=== PATIENT | male | born 1960 | race Caucasian/White ===

== ENCOUNTER 2017-03-20 06:33 | Inpatient (IN) | payer BC ==
[2017-03-20] VITALS (18 sets, daily range): BP systolic 91–175; BP diastolic 51–81; PULSE 66–94; RESP 16–19; TEMP 98.3–99.4; O2SAT 97–100
[~2017-03-20] VITALS: Ht 182.9 cm; Wt 109.5 kg
[2017-03-20] MEDS ORDERED: PROPOFOL 1000 MG/100 ML INJ 100 ML ONE (06:37)
[2017-03-20] MEDS ORDERED: SODIUM CHLORIDE 0.9% FLUSH 5 ML FLUSH IV FLUSH PRN (06:45)
--- NOTE | 2017-03-20 06:47 | PD ---
HPI Chief Complaint: Altered Mental Status Time Seen by Provider: 06:38 Travel History International Travel<30 days: No Contact w/Intl Traveler<30days: No Traveled to known affect area: No History of Present Illness HPI 57-year-old male brought in by ambulance from home with altered mental status. According to EMS, the patient has history of end-stage liver disease. This morning he was talking to his when he became unresponsive and then fell to the ground. When EMS arrived she was face down on the ground with agonal respirations and unresponsive to verbal or painful stimuli. They attempted to intubate him using 20 monos of etomidate and 4 mg of Ativan, however was unsuccessful. Upon arrival to the emergency department, the patient's breathing was being assisted by BVM. Respirations were agonal. Pupils are equal, round, 4 mm, reactive to light. Patient was unresponsive to verbal and painful stimuli. He had notable superficial lacerations/abrasion to his right forehead. Patient was intubated for depressed mental status and airway protection. According to EMS who spoke with the patient's prior to transporting to the emergency department, the patient is a full code. PFSH Past Medical History Medical History: Unable to Obtain Diminished Hearing: No (UTO) Tetanus Vaccination: Unknown Influenza Vaccination: No (UTO) Past Surgical History Surgical History: Unable to Obtain Social History Alcohol Use: No (UTO) Tobacco Use: No (UTO) Substance Use: No (UTO) Allergies-Medications (Allergen,Severity, Reaction): Coded Allergies: UNOBTAINABLE (Unverified , 03/20/17) Reported Meds & Prescriptions Reported Meds & Active Scripts Active Active Prescriptions or Reported Medications Unobtainable Review of Systems ROS Limitations: Clinical Condition, Altered Mental Status, Unresponsive Physical Exam Narrative GENERAL: Well-developed, well-nourished, obtunded, agonal respirations. SKIN: Focused skin assessment warm/dry. Superficial abrasion/laceration to right forehead. No petechiae. No rash. HEAD: Skin exam as above. Normocephalic. EYES: Pupils equal, round, 4 mm, reactive to light. No scleral icterus. No injection or drainage. ENT: No nasal bleeding or discharge. Mucous membranes pink and moist. Respirations assisted with BVM. NECK: Trachea midline. No JVD. Cervical collar in place. CARDIOVASCULAR: Regular rate and rhythm. RESPIRATORY: Agonal respirations. Respirations assisted with BVM. GASTROINTESTINAL: Abdomen soft, nondistended. MUSCULOSKELETAL: No obvious deformities. No clubbing. No cyanosis. No edema. NEUROLOGICAL: Obtunded. Unresponsive to painful or verbal stimuli. Data Data Last Documented VS Vital Signs Date Time Temp Pulse Resp B/P Pulse Ox O2 Delivery O2 Flow Rate FiO2 03/20/17 06:45 100 03/20/17 06:42 94 16 165/67 100 15 Orders Propofol 1000 Mg/100 Ml Inj (Diprivan 10 (03/20/17 06:37) Electrocardiogram (03/20/17 06:38) Ammonia (03/20/17 06:38) Complete Blood Count With Diff (03/20/17 06:38) Comprehensive Metabolic Panel (03/20/17 06:38) Creatine Kinase (Cpk) (03/20/17 06:38) Prothrombin Time / Inr (Pt) (03/20/17 06:38) Act Partial Throm Time (Ptt) (03/20/17 06:38) Troponin I (03/20/17 06:38) Thyroid Stimulating Hormone (03/20/17 06:38) Urinalysis - C+S If Indicated (03/20/17 06:38) Lactic Acid Sepsis Protocol (03/20/17 06:38) Blood Culture (03/20/17 06:38) Chest, Single Ap (03/20/17 06:38) Ct Brain W/O Iv Contrast(Rout) (03/20/17 06:38) Blood Glucose (03/20/17 06:38) Ecg Monitoring (03/20/17 06:38) Iv Access Insert/Monitor (03/20/17 06:38) Oximetry (03/20/17 06:38) Sodium Chloride 0.9% Flush (Ns Flush) (03/20/17 06:45) Drug Screen, Random Urine (03/20/17 06:38) Alcohol (Ethanol) (03/20/17 06:38) Tylenol (Acetaminophen) (03/20/17 06:38) Salicylates (Aspirin) (03/20/17 06:38) Ct Facial Bones W/O Iv Cont (03/20/17 ) Ct Cerv Spine W/O Contrast (7/4/17 ) Propofol 1000 Mg/100 Ml Inj (Diprivan 10 (03/20/17 07:00) Urinary Catheter Insert/Apply (03/20/17 06:52) [facility] Medical Decision Making Medical Screen Exam Complete: Yes Emergency Medical Condition: Yes Interpretation(s) EKG: Sinus, rate 95, leftward axis, normal intervals, no acute ischemic abnormality. Differential Diagnosis ICH, CVA, dysrhythmia, metabolic abnormality/encephalopathy, intoxication Narrative Course Stroke alert was not called by me for several reasons. For one the patient has a reported history of end-stage liver disease. With this he could have a coagulopathy, making him a poor TPA candidate as this will likely increase his chance of bleeding. Patient also sustained head trauma with a fall to the ground after becoming unresponsive. He has obvious signs of trauma on exam with a right forehead abrasion. Head trauma is a contraindication to TPA. Also the patient's symptoms are nonfocal, yet global in nature. He is obtunded. According to EMS the patient's will be presenting to the emergency department. At 7:05 AM at the end of my shift the patient's is still not here. At this time the patient was signed out to oncoming provider Dr. Allen who will follow up with labs, imaging results, and will admit the patient to the [facility]. Procedures Procedure Narrative Emergency intubation: The patient was put in optimal position for the procedure. Rapid sequence intubation was initiated by me using 20 milligrams of etomidate IV and 50 milligrams of rocuronium IV. The patient was intubated with a 8.0 [place] cuffed endotracheal tube. Tube placement was confirmed by visualization of the tube and balloon passing through the cords, capnometry and subsequent chest x-ray. Breath sounds were equal and well aerated bilaterally postintubation. No breath sounds over stomach. Patient tolerated procedure well. Scripts Unable to Obtain Active Prescriptions or Reported Meds Ben Palmer MD Mar 20, 2017 06:47
[2017-03-20] MEDS: PROPOFOL 1000 MG/100 ML INJ 100 ML IV SCH ×2 (06:49→19:37)
[2017-03-20 07:05] LABS: AUTOMATED NEUTROPHIL # 5.7 TH/MM3 (1.8-7.7); BASOPHIL # 0.1 TH/MM3 (0-0.2); BASOPHIL % 1.4 % (0.0-2.0); EOSINOPHIL # 0.4 TH/MM3 (0-0.4); EOSINOPHIL % 5.1 % (0.0-4.0); HEMATOCRIT 28.7 % (39.0-51.0); LYMPH % 11.3 % (9.0-44.0); LYMPHOCYTE # 0.8 TH/MM3 (1.0-4.8); MEAN CELL VOLUME 90.1 FL (80.0-100.0); MEAN CORPUSCULAR HGB CONC 32.2 % (32.0-36.0); MONO % 6.2 % (0.0-8.0); PLATELET COUNT 63 TH/MM3 (150-450); RED BLOOD COUNT 3.18 MIL/MM3 (4.50-5.90); RED CELL DISTRIBUTION WIDTH 16.6 % (11.6-17.2); WHITE BLOOD COUNT 7.4 TH/MM3 (4.0-11.0)
[2017-03-20 07:10] LABS: HEMO FLAGS AUTO DIFF
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
[2017-03-20 07:17] LABS: APTT (PATIENT) 32.4 SEC (24.3-30.1); INTERNATIONAL NORMALIZED RATIO 1.4 RATIO; PROTHROMBIN TIME - PATIENT 16.2 SEC (9.8-11.6)
--- NOTE | 2017-03-20 07:20 | RADRPT ---
EXAM DATE/TIME: 03/20/2017 07:05 [facility] COMPARISON: No previous studies available for comparison. INDICATIONS : Syncope, fall RADIATION DOSE: 56.35 CTDIvol (mGy) MEDICAL HISTORY : Non-responsive. SURGICAL HISTORY : Non-responsive. ENCOUNTER: Initial ACUITY: 1 day PAIN SCALE: Non-responsive LOCATION: cranial TECHNIQUE: Multiple contiguous axial images were obtained of the head. Using automated exposure control and adj ustment of the mA and/or kV according to patient size, radiation dose was kept as low as reasonably a chievable to obtain optimal diagnostic quality images. DICOM format image data is available electro nically for review and comparison. FINDINGS: There is circumferential mucosal thickening in right maxillary sinus. No fractures are seen. The ther e is encephalomalacia in the right inferior frontal lobe from remote infarct with mild ex acute dilat ation of the right frontal horn. There are no signs of acute infarct, intracranial hemorrhage, or mas s. CONCLUSION: 1. Right maxillary sinus mucosal thickening. 2. Remote right frontal infarct. Yehuda Oro MD on March 20, 2017 at 7:17 Board Certified Radiologist. This report was verified electronically.
[2017-03-20] MEDS ORDERED: SODIUM PHOSPHATE INJ 30 MMOL in SODIUM CHLOR 0.9% 250 ML INJ 240 ML IV PRN (07:30)
[2017-03-20] MEDS ORDERED: POTASSIUM CHLOR 20 MEQ PREMIX 100 ML IV PRN ×2 (07:30)
[2017-03-20] MEDS ORDERED: hydrALAZINE HCL 20 MG/ML VIAL IV PUSH PRN (07:30)
[2017-03-20] MEDS ORDERED: PROPOFOL 1000 MG/100 ML INJ 100 ML IV SCH (07:30)
[2017-03-20] MEDS ORDERED: RESP: ALBUTEROL 2.5 MG/IPRATROPIUM 0.5 MG NEB (PRN) INH (07:30)
[2017-03-20] MEDS ORDERED: POTASSIUM PHOSPHATE MONOBASIC 500 MG TAB PO/TUBE PRN (07:30)
[2017-03-20] MEDS ORDERED: DEXTROSE 50% IN WATER 50 ML VIAL(D50) IV PUSH PRN (07:30)
[2017-03-20] MEDS ORDERED: MAGNESIUM OXIDE 400 MG TAB PO PRN (07:30)
[2017-03-20] MEDS ORDERED: LABETALOL HCL 100 MG/20 ML VIAL IV PUSH PRN (07:30)
[2017-03-20] MEDS ORDERED: MISCELLANEOUS NURSING INFORMATION XX SCH (07:30)
[2017-03-20] MEDS ORDERED: POTASSIUM PHOSPHATE INJ 30 MMOL in SODIUM CHLOR 0.9% 250 ML INJ 250 ML IV PRN (07:30)
[2017-03-20] MEDS ORDERED: MAGNESIUM SULFATE INJ 4 GM in SODIUM CHLORIDE 0.9% INJ 92 ML IV PRN (07:30)
[2017-03-20] MEDS ORDERED: CHLORHEXIDINE GLUCONATE 2 % 1 PACK (2 CLOTHS) TOP PRN (07:30)
[2017-03-20] MEDS ORDERED: POTASSIUM PHOSPHATE MONOBASIC 500 MG TAB PO PRN (07:30)
[2017-03-20] MEDS ORDERED: ONDANSETRON HCL 4 MG/2 ML VIAL IV PRN (07:30)
[2017-03-20] MEDS ORDERED: MAGNESIUM SULFATE INJ 2 GM in SODIUM CHLORIDE 0.9% INJ 96 ML IV PRN (07:30)
[2017-03-20] MEDS ORDERED: POTASSIUM CHLOR 40 MEQ PREMIX 100 ML IV PRN ×2 (07:30)
--- NOTE | 2017-03-20 07:31 | RADRPT ---
EXAM DATE/TIME: 03/20/2017 07:06 [facility] COMPARISON: No previous studies available for comparison. INDICATIONS : Syncope, fall RADIATION DOSE: 26.43 CTDIvol (mGy) MEDICAL HISTORY : Non-responsive. SURGICAL HISTORY : Non-responsive. ENCOUNTER: Initial ACUITY: 1 day PAIN SCALE: Non-responsive LOCATION: neck TECHNIQUE: Volumetric scanning of the cervical spine was performed. Multiplanar reconstructions in the sagittal, coronal and oblique axial planes were performed. Using automated exposure control and adjustment o f the mA and/or kV according to patient size, radiation dose was kept as low as reasonably achievable to obtain optimal diagnostic quality images. DICOM format image data is available electronically f or review and comparison. FINDINGS: There is straightening of the cervical lordosis. No compression deformities. Moderate to severe disc space narrowing at C3-4, C5-6 through T1-2 with endplate sclerosis and prominent anterior osteophytos is greatest at C. 5/6. The odontoid process is intact. Multilevel uncovertebral hypertrophy at C3-4, C5-6 through C7-T1. Cervicothoracic junction is approximated. There is mild canal narrowing throughou t the cervical spine secondary to mild posterior disc osteophyte disease. No fractures are identified . CONCLUSION: Degenerative changes are noted without fracture or listhesis. Bilateral upper lobe consolidative opac ity. Yehuda Oro MD on March 20, 2017 at 7:27 Board Certified Radiologist. This report was verified electronically.
[2017-03-20 07:36] LABS: ACETAMINOPHEN LESS THAN 2.0 MCG/ML (10.0-30.0); ALT (GPT) 34 U/L (12-78); ANION GAP 12 MEQ/L (5-15); AST (GOT) 79 U/L (15-37); BICARBONATE 18.3 MEQ/L (21.0-32.0); BLOOD UREA NITROGEN 7 MG/DL (7-18); CHLORIDE 114 MEQ/L (98-107); GLOMERULAR FILTRATION RATE 87 ML/MIN (>89); POTASSIUM 4.5 MEQ/L (3.5-5.1); SODIUM (NA) 144 MEQ/L (136-145)
[2017-03-20 07:41] LABS: BACTERIA, URINE OCC /hpf; BLOOD, URINE MOD (NEG); COMMENT (UR) CATH-CULTURE IND; CULTURE IF INDICATED CATH CULTURE IND; GLUCOSE,URINE NEG (NEG); HYALINE CAST, URINE 1 /lpf (RARE); KETONE, URINE NEG (NEG); MUCUS URINE FEW /lpf (OCC); NITRITE,URINE NEG (NEG); SQUAMOUS EPITHELIAL CELL URINE <1 /hpf (0-5); URINE COLOR YELLOW (YELLW/STRAW)
[2017-03-20 07:42] LABS: ACANTHOCYTES OCC (NORMAL); OVALOCYTES 1+ (NORMAL); PLATELET ESTIMATE SMEAR LOW (NORMAL); PLATELET MORPHOLOGY NORMAL (NORMAL); SCAN/DIFF AUTO DIFF CONFIRMED
--- NOTE | 2017-03-20 07:43 | RADRPT ---
EXAM DATE/TIME: 03/20/2017 07:02 [facility] COMPARISON: CT CERVICAL SPINE W/O CONTRAST, March 20, 2017, 7:06. CT BRAIN W/O CONTRAST, March 20, 2017, 7:05. INDICATIONS : Syncope, fall RADIATION DOSE: 21.96 CTDIvol (mGy) MEDICAL HISTORY : Non-responsive. SURGICAL HISTORY : Non-responsive. ENCOUNTER: Initial ACUITY: 1 day PAIN SCORE: Non-responsive LOCATION: facial TECHNIQUE: Volumetric scanning of the facial bones was performed. Using automated exposure control and adjustme nt of the mA and/or kV according to patient size, radiation dose was kept as low as reasonably achiev able to obtain optimal diagnostic quality images. DICOM format image data is available electronicall y for review and comparison. FINDINGS: ORBITS: The orbital and infraorbital osseous structures are intact. The retroconal structures have a normal configuration. No radiopaque foreign bodies are seen. NASAL BONE: The nasal bone and maxillary spine are intact ZYGOMATIC ARCHES: Symmetric without evidence of fracture. SINUSES: Circumferential mucosal thickening in right maxillary sinus. Small air-fluid level in the left spheno id sinus. There is a fracture through the anterior inferior wall of the right maxillary sinus. A sing le metallic radiodensity is noted at the right lateral orbital wall from previous surgery. There is e vidence of a right orbital floor fracture, nonacute. The right maxillary sinus fracture is most likel y related to previous trauma. NASAL CAVITY: The nasal septum is intact and midline. The lacrimal ducts are intact. SOFT TISSUES: No radiopaque foreign bodies seen. No soft-tissue swelling is seen. INTRACRANIAL: No intracranial air seen. CRIBIFORM PLATE: Grossly intact. CONCLUSION: 1. There is a fracture the right maxillary sinus wall and right orbital floor which are felt to be no nacute with evidence of previous surgery and periosteal thickening. 2. Small air-fluid level left sphenoid sinus, and moderate circumferential mucosal thickening in the right maxillary sinus. Yehuda Oro MD on March 20, 2017 at 7:38 Board Certified Radiologist. This report was verified electronically.
[2017-03-20 07:44] LABS: ALKALINE PHOSPHATASE 160 U/L (45-117); CALCIUM-PROTEIN CORRECTED 7.5 MG/DL (8.5-10.1); CREATINE KINASE 101 U/L (39-308); TOTAL BILIRUBIN ADULT 1.6 MG/DL (0.2-1.0)
[2017-03-20] MEDS ORDERED: GLUCAGON 1 MG/ML VIAL OTHER PRN (07:45)
[2017-03-20 08:06] LABS: AMPHETAMINE, URINE NEG (NEG); BARBITURATES, URINE NEG (NEG); COCAINE, URINE NEG (NEG)
[2017-03-20] MEDS ORDERED: IOHEXOL 350 MG/ML 10 ML VIAL (for RAD DIAG) IV ONE (08:11)
--- NOTE | 2017-03-20 08:20 | RADRPT ---
EXAM DATE/TIME: 03/20/2017 08:06 [facility] COMPARISON: No previous studies available for comparison. INDICATIONS : Syncope. MEDICAL HISTORY : Non-responsive. SURGICAL HISTORY : Non-responsive. ENCOUNTER: Initial ACUITY: 1 day PAIN SCORE: Non-responsive. LOCATION: Bilateral chest FINDINGS: There is cardiomegaly. Endotracheal tube tip at the inferior margin of clavicles. NG tube courses basihr eath the diaphragm. There is consolidation in the left lower lobe, and apparent widening of the super ior mediastinum. CONCLUSION: Left lower lobe consolidation, apparent widening of the superior mediastinal contour which can be fur ther evaluated with CT chest with contrast if felt clinically warranted. Yehuda Oro MD on March 20, 2017 at 8:16 Board Certified Radiologist. This report was verified electronically.
[2017-03-20 08:21] LABS: BLOOD GAS BASE EXCESS -4.8 mmol/L (-2-2); BLOOD GAS CARBOXYHEMOGLOBIN 1.6 % (0-4); BLOOD GAS HCO3 20 mmol/L (22-26); BLOOD GAS METHEMOGLOBIN 0.9 % (0-2); BLOOD GAS O2 HGB SATURATION 91 % (90-100); BLOOD GAS OXYGEN CONTENT 10.8 Vol % (12.0-20.0); BLOOD GAS PCO2 40 mmHg (38-42); BLOOD GAS PO2 74 mmHG (61-120); BLOOD GAS TOTAL HGB 8.4 G/DL (12.0-16.0); CRITICAL VALUE NO; DRAW SITE RT RADIAL; FIO2 40 %; NUMBER OF ARTERIAL PUNCTURES 1; OXYGEN DEVICE VENTILATOR; STAT YES; TEMP CORR TO 98.6; VENT SETTINGS A/C500/15/PEEP5
[2017-03-20] MEDS ORDERED: PROP10TA6 PO (08:24)
[2017-03-20] MEDS ORDERED: PROT40TA PO (08:24)
[2017-03-20] MEDS ORDERED: XIFA550T4 PO (08:24)
[2017-03-20] MEDS ORDERED: LACTCHW3 CHEW (08:24)
[2017-03-20] MEDS ORDERED: FOLI800T PO (08:24)
[2017-03-20] MEDS ORDERED: FURO20TA PO (08:24)
[2017-03-20] MEDS ORDERED: NOVOINJ2 SQ (08:24)
[2017-03-20] MEDS: SODIUM CHLOR 0.9% 1000 ML INJ 1,000 ML IV SCH ×2 (08:25→19:14)
[2017-03-20] MEDS ORDERED: AZITHROMYCIN INJ 500 MG in SODIUM CHLOR 0.9% 250 ML INJ 250 ML IV ONE (08:30)
[2017-03-20] MEDS ORDERED: CEFEPIME INJ 2,000 MG in SODIUM CHLORIDE 0.9% INJ 100 ML IV ONE (08:30)
--- NOTE | 2017-03-20 08:33 | RADRPT ---
EXAM DATE/TIME: 03/20/2017 07:28 [facility] COMPARISON: CT BRAIN W/O CONTRAST, March 20, 2017, 7:05. INDICATIONS : Syncope, fall IV CONTRAST: 75 cc Omnipaque 350 (iohexol) IV ; Cumulative dose for multiple exams. RADIATION DOSE: 16.4 CTDIvol (mGy) ; Combined studies MEDICAL HISTORY : Non-responsive. SURGICAL HISTORY : Non-responsive. ENCOUNTER: Initial ACUITY: 1 day PAIN SCALE: Non-responsive LOCATION: cranial TECHNIQUE: Volumetric scanning was performed using a multi-row detector CT scanner. The data was post processed with a variety of visualization algorithms including full volume maximum intensity projection, multi -planar sliding thin slab reformation, curved planar reformation, and surface rendering techniques. Using automated exposure control and adjustment of the mA and/or kV according to patient size, radiat ion dose was kept as low as reasonably achievable to obtain optimal diagnostic quality images. DICO M format image data is available electronically for review and comparison. FINDINGS: There is excellent visualization of the major intracranial arteries out to the second-order branch ve ssels. There is no evidence for aneurysm, vessel truncation or stenosis, and no evidence for vascula r malformation. Bilateral pulmonary consolidation and small effusions noted. NG tube and endotracheal tube are identi fied. CONCLUSION: 1. Normal intracranial vasculature. 2. Pulmonary consolidation and effusions are noted. Yehuda Oro MD on March 20, 2017 at 8:29 Board Certified Radiologist. This report was verified electronically.
--- NOTE | 2017-03-20 08:57 | HHI.HP ---
[facility] Service Critical Care Medicine Primary Care Physician Non-Staff Admission Diagnosis altered mental status, elevated ammonia level, lactic acidosis Diagnosis: Chief Complaint: altered mental status Travel History International Travel<30 Days: No Contact w/Intl Traveler <30 Da: No Traveled to Known Affected Are: No History of Present Illness This is a 57-year-old male who is brought in by EMS for altered mental status. According to the EMS report, the patient has a history of end-stage liver disease and was talking to his when he became acutely unresponsive and fell forward onto the ground. EMS attempted intubation was unsuccessful. He was brought in the emergency department where he was successfully intubated. CT CT angiogram head and neck are negative for acute stroke, although he does have evidence of old prior ischemic stroke in the right frontal lobe. Laboratory values are significant for a lactate of 7, and ammonia of 300. White count is normal. Patient does have laboratory evidence of end-stage liver disease including elevated INR, low albumin, thrombocytopenia. In talking with his , she states that he fell to the ground and had rhythmic shaking like movements. She states that he has been evaluated on multiple occasions for liver transplantation and the center that he was evaluated and did not feel that he was a good transplant candidate at this time. Unfortunately patient is unresponsive and intubated and cannot provide additional history. His does state that he has had a prior TIPS procedure and she is unclear whether or not he has ever had hepatic encephalopathy in the past Review of Systems ROS Limitations: Clinical Condition, Intubated, Altered Mental Status, Unresponsive Past Family Social History Allergies: Coded Allergies: Indomethacin (Verified Allergy, Intermediate, UNKNOWN, 03/20/17) Lorazepam (Verified Allergy, Intermediate, PSYCHOSIS, 03/20/17) Zolpidem (Verified Allergy, Intermediate, PSYCHOSIS, 03/20/17) Shellfish (Verified Allergy, Mild, GOUT, 03/20/17) Past Medical History Complete medical history is unobtainable due to the patient's clinical condition. Per his , he has a history of end-stage liver disease which is being worked up for transplant, thrombocytopenia, elevated ammonia. Patient's states that he had hepatitis C which is the cause of his end-stage liver disease, but he has had Harvoni. Past Surgical History Complete surgical history is unobtainable secondary to patient's clinical condition. Per his he's had a TIPS procedure Reported Medications Complete medication list is unobtainable secondary to the patient's clinical condition. Per the he was taking lactulose once a day and rifaximin twice a day, but his GI doctor stopped his lactulose because he was having too much diarrhea. Active Ordered Medications See MAR Family History Unobtainable secondary to patient's clinical condition Social History Unobtainable secondary to patient's clinical condition Physical Exam Vital Signs Vital Signs Date Time Temp Pulse Resp B/P Pulse Ox O2 Delivery O2 Flow Rate FiO2 03/20/17 08:52 79 18 134/63 100 Auto-Vent 03/20/17 07:56 92 18 158/72 100 Auto-Vent 03/20/17 07:50 99 40 03/20/17 07:30 90 18 159/70 100 Auto-Vent 03/20/17 07:00 100 03/20/17 06:45 100 100 03/20/17 06:45 100 03/20/17 06:42 94 16 165/67 100 15 03/20/17 06:41 16 100 15 03/20/17 06:35 90 16 175/81 98 Physical Exam GENERAL: Middle-aged male, lying in bed, intubated, sedated, unresponsive HEENT: Normocephalic. Atraumatic. Pupils equal, round, reactive, conjugate. Mucous membranes are moist NECK: Trachea is midline. There is no JVD. CHEST: Equal chest rise. Clear to auscultation. CARDIOVASCULAR: Rate, regular rhythm. Sinus by telemetry ABDOMEN: Soft, nontender, nondistended. No guarding. MUSCULOSKELETAL: Pulses 2+. No peripheral edema. NEUROLOGICAL: GCS 3. Recently intubated and sedated. Does not follow commands. Pupils as above. Laboratory Laboratory Tests Test 03/20/17 03/20/17 06:52 08:10 White Blood Count 7.4 Red Blood Count 3.18 Hemoglobin 9.2 Hematocrit 28.7 Mean Corpuscular Volume 90.1 Mean Corpuscular Hemoglobin 29.0 Mean Corpuscular Hemoglobin 32.2 Concent Red Cell Distribution Width 16.6 Platelet Count 63 Mean Platelet Volume 7.3 Neutrophils (%) (Auto) 76.0 Lymphocytes (%) (Auto) 11.3 Monocytes (%) (Auto) 6.2 Eosinophils (%) (Auto) 5.1 Basophils (%) (Auto) 1.4 Neutrophils # (Auto) 5.7 Lymphocytes # (Auto) 0.8 Monocytes # (Auto) 0.5 Eosinophils # (Auto) 0.4 Basophils # (Auto) 0.1 CBC Comment AUTO DIFF Differential Comment AUTO DIFF CONFIRMED Platelet Estimate LOW Platelet Morphology Comment NORMAL Ovalocytes 1+ Acanthocytes OCC Prothrombin Time 16.2 Prothromb Time International 1.4 Ratio Activated Partial 32.4 Thromboplast Time Urine Color YELLOW Urine Turbidity HAZY Urine pH 6.0 Urine Specific [place] 1.015 Urine Protein 100 Urine Glucose (UA) NEG Urine Ketones NEG Urine Occult Blood MOD Urine Nitrite NEG Urine Bilirubin NEG Urine Urobilinogen LESS THAN 2.0 Urine Leukocyte Esterase NEG Urine RBC 8 Urine WBC 2 Urine Squamous Epithelial <1 Cells Urine Amorphous Sediment MOD Urine Bacteria OCC Urine Hyaline Casts 1 Urine Mucus FEW Microscopic Urinalysis Comment CATH-CULTURE IND Sodium Level 144 Potassium Level 4.5 Chloride Level 114 Carbon Dioxide Level 18.3 Anion Gap 12 Blood Urea Nitrogen 7 Creatinine 0.89 Estimat Glomerular Filtration 87 Rate Random Glucose 128 Lactic Acid Level 7.9 Calcium Level 7.3 Protein Corrected Calcium 7.5 Total Bilirubin 1.6 Aspartate Amino Transf 79 (AST/SGOT) Alanine Aminotransferase 34 (ALT/SGPT) Alkaline Phosphatase 160 Ammonia 312 Total Creatine Kinase 101 Troponin I 0.02 Total Protein 6.7 Albumin 2.4 Thyroid Stimulating Hormone 5.680 3rd Gen Urine Opiates Screen NEG Acetaminophen Level LESS THAN 2.0 Urine Barbiturates Screen NEG Urine Amphetamines Screen NEG Urine Benzodiazepines Screen NEG Urine Cocaine Screen NEG Urine Cannabinoids Screen NEG Ethyl Alcohol Level LESS THAN 3 Blood Gas Puncture Site RT RADIAL Blood Gas Patient Temperature 98.6 Blood Gas HCO3 20 Blood Gas Base Excess -4.8 Blood Gas Oxygen Saturation 91 Arterial Blood pH 7.32 Arterial Blood Partial 40 Pressure CO2 Arterial Blood Partial 74 Pressure O2 Arterial Blood Oxygen Content 10.8 Arterial Blood 1.6 Carboxyhemoglobin Arterial Blood Methemoglobin 0.9 Blood Gas Hemoglobin 8.4 Oxygen Delivery Device VENTILATOR Blood Gas Ventilator Setting A/C500/15/PEEP5 Blood Gas Inspired Oxygen 40 Date/Time Procedure Status Source Growth 03/20/17 06:52 Urine Culture Received Urine Catheterized Urine Pending 03/20/17 06:52 Aerobic Blood Culture Received Blood Peripheral Pending 03/20/17 06:52 Anaerobic Blood Culture Received Blood Peripheral Pending Result Diagram: 03/20/17 0652 03/20/17 0652 Imaging Last Impressions Head CT 03/20/17637 Signed Impressions: Service Date/Time: Monday, March 20, 2017 07:05 - CONCLUSION: 1. Right maxillary sinus mucosal thickening. 2. Remote right frontal infarct. Yehuda Oro MD Chest X-Ray 03/20/17637 Signed Impressions: Service Date/Time: Monday, March 20, 2017 08:06 - CONCLUSION: Left lower lobe consolidation, apparent widening of the superior mediastinal contour which can be further evaluated with CT chest with contrast if felt clinically warranted. Yehuda Oro MD Neck CTA 03/20/17 Signed Impressions: Service Date/Time: Monday, March 20, 2017 07:28 - CONCLUSION: 1. No evidence for hemodynamically significant stenosis of either carotid artery. Yehuda Oro MD Maxillofacial CT 03/20/17 Signed Impressions: Service Date/Time: Monday, March 20, 2017 07:02 - CONCLUSION: 1. There is a fracture the right maxillary sinus wall and right orbital floor which are felt to be nonacute with evidence of previous surgery and periosteal thickening. 2. Small air-fluid level left sphenoid sinus, and moderate circumferential mucosal thickening in the right maxillary sinus. Yehuda Oro MD Head CTA 03/20/17 Signed Impressions: Service Date/Time: Monday, March 20, 2017 07:28 - CONCLUSION: 1. Normal intracranial vasculature. 2. Pulmonary consolidation and effusions are noted. Yehuda Oro MD Cervical Spine CT 03/20/17 Signed Impressions: Service Date/Time: Monday, March 20, 2017 07:06 - CONCLUSION: Degenerative changes are noted without fracture or listhesis. Bilateral upper lobe consolidative opacity. 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 Certainly the combination of a TIPS procedure and discontinuation of his Lactulose could cause worsening of his hepatic encephalopathy. He does not have a history of seizures. We will obtain EEG. He remains critically ill with respiratory failure, liver failure, and severe acute encephalopathy. Plan by systems: Neurologic: Hepatic encephalopathy Possible seizure-like activity Hyperammonemia Frequent neuro checks Propofol for vent synchrony Goal RASS -2 EEG Trend ammonia levels Lactulose and rifaximin Respiratory: Acute hypoxic and hypercarbic respiratory failure No SBT today given severe encephalopathy Head of bed at 30 Vent bundle Wean FiO2 for goal SPO2 greater than 90% Nebs Cardiovascular: Continue telemetry Renal: Place Cruz for accurate measurement of I's and O's -- Strict I/Os FEN/GI: End-stage liver disease Lactic acidosis Daily LFTs, BMP Nothing by mouth for now Saline at 100 cc an hour Trend lactates Heme/ID: Coagulopathy secondary to liver disease Thrombocytopenia secondary to liver disease Daily CBC No infectious etiology suspected this time Does not meet transfusion triggers at this time Daily coags Endocrine: Hyperglycemia of critical illness -- SSI, medium scale, every 6 Prophylaxis: GI Prophylaxis Protonix DVT Prophylaxis -- SCDs Holding pharmacologic DVT prophylaxis in the setting of end-stage liver disease with coagulopathy Lines: Peripheral IVs Cruz Dispo: Should admit the ICU. He remains critically ill This patient remains critically ill with one or more organ systems which are or may become a threat to life. I have spent in excess of 55 minutes discontinuously in the care and management of this patient. This time is exclusive of procedures, and includes, but is not limited to, evaluation of the patient, review of the medical record, discussions with family, consultants, nursing staff, or respiratory therapy, and documentation in the medical record. Code Status Full Code Alvarez Lemus MD Mar 20, 2017 08:57
[2017-03-20 08:59] LABS: LACTIC ACID GHOST NOT REPORTABLE
[2017-03-20] MEDS: RESP: ALBUTEROL 2.5 MG/IPRATROPIUM 0.5 MG NEB (SCH) INH ×3 (09:00→20:15)
--- NOTE | 2017-03-20 09:04 | RADRPT ---
EXAM DATE/TIME: 03/20/2017 07:28 [facility] COMPARISON: CTA BRAIN W 3D RECON, March 20, 2017, 7:28. CT BRAIN W/O CONTRAST, March 20, 2017, 7:05. INDICATIONS : Syncope, fall IV CONTRAST: 75 cc Omnipaque 350 (iohexol) IV ; Cumulative dose for multiple exams. RADIATION DOSE: 16.4 CTDIvol (mGy) ; Combined studies MEDICAL HISTORY : Non-responsive. SURGICAL HISTORY : Non-responsive. ENCOUNTER: Initial ACUITY: 1 day PAIN SCALE: Non-responsive LOCATION: neck Elevated flow velocities and ICA/CCA ratios have been found to correlate with increased degrees of vessel stenosis, calculated as percentage of diameter relative to a normal segment of distal ICA/CCA. TECHNIQUE: Volumetric scanning was performed using a multirow detector CT scanner. The data was post processed with a variety of visualization algorithms including full-volume maximum intensity projection, multip lanar sliding thin-slab reformation, curved-planar reformation, and surface-rendering techniques. Us ing automated exposure control and adjustment of the mA and/or kV according to patient size, radiatio n dose was kept as low as reasonably achievable to obtain optimal diagnostic quality images. DICOM f ormat image data is available electronically for review and comparison. FINDINGS: Study is somewhat degraded by venous contamination. There are increased number of mediastinal lymph n odes in the superior mediastinum, right paratracheal, subcarinal regions, mildly prominent in size. E ndotracheal tube and enteric tube are noted. There are bilateral effusions and pulmonary consolidatio n identified. Left supraclavicular lymph nodes are identified up to 1.6 cm. There is a remote infarct in the right frontal region with encephalomalacia. AORTIC ARCH: There is a three-vessel origin of the great vessels from the aorta. No evidence of ostial narrowing. RIGHT CAROTID: The common carotid artery is intact. The carotid bulb has a normal configuration without ulceration o r narrowing. The internal carotid artery lumen is smooth without stenosis. The external carotid brigitte ry is intact. LEFT CAROTID: The common carotid artery is intact. The carotid bulb has a normal configuration without ulceration or narrowing. The internal carotid artery lumen is smooth without stenosis. The external carotid ar kenneth is intact. VERTEBRALS: The vertebral arteries have a symmetric diameter. No stenotic lesions are seen. CONCLUSION: 1. No evidence for hemodynamically significant stenosis of either carotid artery. Yehuda A. Shorty, MD on March 20, 2017 at 8:59 Board Certified Radiologist. This report was verified electronically.
[2017-03-20] MEDS: LACTULOSE SYRUP 20 GM/30 ML CUP PO SCH ×4 (11:08→19:37)
[2017-03-20] MEDS: PANTOPRAZOLE SODIUM 40 MG VIAL IV SCH (11:09)
[2017-03-20] MEDS: INSULIN NovoLIN REGULAR SUPPLEMENTAL SCALE SQ SCH ×2 (11:09→17:56)
[2017-03-20] MEDS: CHLORHEXIDINE 0.12% (ORAL KIT) 15 ML CUP MT SCH ×2 (11:10→19:36)
[2017-03-20] MEDS: LACTATED RINGER'S 1000 ML INJ 1,000 ML IV SCH ×2 (11:12→21:22)
--- NOTE | 2017-03-20 13:10 | EKG ---
Date Performed: 03/20/2017 Time Performed: 06:37:10 PTAGE: 57 years EKG: Sinus rhythm MODERATE INTRAVENTRICULAR CONDUCTION DELAY BORDERLINE ECG NO PREVIOUS TRACING DOCTOR: Delfino Aguero Interpretating Date/Time 03/20/2017 13:08:33
[2017-03-20] MEDS: RIFAXIMIN 200 MG TAB PO SCH ×2 (14:00→21:21)
[2017-03-21] VITALS (36 sets, daily range): BP systolic 101–164; BP diastolic 51–72; PULSE 64–102; RESP 13–31; TEMP 98–99.3; O2SAT 95–100
[2017-03-21] MEDS: CHLORHEXIDINE GLUCONATE 2 % 1 PACK (2 CLOTHS) TOP SCH (02:28)
[2017-03-21] MEDS: PROPOFOL 1000 MG/100 ML INJ 100 ML IV SCH ×3 (02:28→19:27)
[2017-03-21] MEDS: RESP: ALBUTEROL 2.5 MG/IPRATROPIUM 0.5 MG NEB (SCH) INH ×4 (02:36→20:38)
[2017-03-21 04:59] LABS: HEMATOCRIT 22.1 % (39.0-51.0); MEAN CELL VOLUME 87.6 FL (80.0-100.0); MEAN CORPUSCULAR HEMOGLOBIN 28.8 PG (27.0-34.0); MEAN CORPUSCULAR HGB CONC 32.9 % (32.0-36.0); PLATELET COUNT 30 TH/MM3 (150-450); RED BLOOD COUNT 2.52 MIL/MM3 (4.50-5.90); RED CELL DISTRIBUTION WIDTH 16.4 % (11.6-17.2); WHITE BLOOD COUNT 2.6 TH/MM3 (4.0-11.0)
[2017-03-21 05:00] LABS: REVIEW FLAG FINAL
[2017-03-21] MEDS: RIFAXIMIN 200 MG TAB PO SCH ×3 (05:16→21:23)
[2017-03-21] MEDS: SODIUM CHLOR 0.9% 1000 ML INJ 1,000 ML IV SCH (05:16)
[2017-03-21] MEDS: LACTATED RINGER'S 1000 ML INJ 1,000 ML IV SCH ×2 (05:16→18:39)
[2017-03-21 05:22] LABS: APTT (PATIENT) 38.7 SEC (24.3-30.1); INTERNATIONAL NORMALIZED RATIO 1.6 RATIO; PROTHROMBIN TIME - PATIENT 17.8 SEC (9.8-11.6)
[2017-03-21 05:27] LABS: BICARBONATE 21.8 MEQ/L (21.0-32.0); POTASSIUM 3.6 MEQ/L (3.5-5.1); TOTAL BILIRUBIN ADULT 2.1 MG/DL (0.2-1.0)
[2017-03-21] MEDS: INSULIN NovoLIN REGULAR SUPPLEMENTAL SCALE SQ SCH ×4 (05:34→18:00)
[2017-03-21] MEDS: CHLORHEXIDINE 0.12% (ORAL KIT) 15 ML CUP MT SCH ×2 (08:18→20:00)
[2017-03-21] MEDS: LACTULOSE SYRUP 20 GM/30 ML CUP PO SCH ×4 (08:19→21:00)
[2017-03-21] MEDS: PANTOPRAZOLE SODIUM 40 MG VIAL IV SCH (08:19)
--- NOTE | 2017-03-21 13:15 | HHI.CCPN ---
Subjective Remarks/Hospital Course Hospital Course: This is a 57-year-old male who is brought in by EMS for altered mental status. According to the EMS report, the patient has a history of end-stage liver disease and was talking to his when he became acutely unresponsive and fell forward onto the ground. EMS attempted intubation was unsuccessful. He was brought in the emergency department where he was successfully intubated. CT CT angiogram head and neck are negative for acute stroke, although he does have evidence of old prior ischemic stroke in the right frontal lobe. Laboratory values are significant for a lactate of 7, and ammonia of 300. White count is normal. Patient does have laboratory evidence of end-stage liver disease including elevated INR, low albumin, thrombocytopenia. In talking with his , she states that he fell to the ground and had rhythmic shaking like movements. She states that he has been evaluated on multiple occasions for liver transplantation and the center that he was evaluated and did not feel that he was a good transplant candidate at this time. Unfortunately patient is unresponsive and intubated and cannot provide additional history. His does state that he has had a prior TIPS procedure and she is unclear whether or not he has ever had hepatic encephalopathy in the past Subjective: 03/21: ammonia downtrending. leukopenic and thrombocytopenic this morning, but may have a component of dilution. more awake today, but not yet following commands. spoke with and she would like a palliative care consult to help clarify her own goals of care regarding his ongoing transplant work-up and what the future of his ESLD might look like. Objective Vital Signs Date Time Temp Pulse Resp B/P Pulse Ox O2 Delivery O2 Flow Rate FiO2 03/21/17 12:30 77 19 116/56 99 03/21/17 12:00 99.1 03/21/17 12:00 40 03/20/17 08:52 Auto-Vent 03/20/17 06:42 15 Intake and Output 03/20/17 03/20/17 03/21/17 08:00 16:00 00:00 Intake Total 1198 ml 1258 ml Output Total 525 ml 375 ml Balance 673 ml 883 ml Result Diagram: 03/21/17 0451 03/21/17 0451 Imaging Last Impressions Head CT 03/20/17 0649 Signed Impressions: Service Date/Time: Monday, March 20, 2017 07:05 - CONCLUSION: 1. Right maxillary sinus mucosal thickening. 2. Remote right frontal infarct. Yehuda Oro MD Chest X-Ray 03/20/17 0638 Signed Impressions: Service Date/Time: Monday, March 20, 2017 08:06 - CONCLUSION: Left lower lobe consolidation, apparent widening of the superior mediastinal contour which can be further evaluated with CT chest with contrast if felt clinically warranted. Yehuda Oro MD Neck CTA 03/20/17 Signed Impressions: Service Date/Time: Monday, March 20, 2017 07:28 - CONCLUSION: 1. No evidence for hemodynamically significant stenosis of either carotid artery. Yehuda Oro MD Maxillofacial CT 03/20/17 0000 Signed Impressions: Service Date/Time: Monday, March 20, 2017 07:02 - CONCLUSION: 1. There is a fracture the right maxillary sinus wall and right orbital floor which are felt to be nonacute with evidence of previous surgery and periosteal thickening. 2. Small air-fluid level left sphenoid sinus, and moderate circumferential mucosal thickening in the right maxillary sinus. Yehuda rOo MD Head CTA 03/20/17 0000 Signed Impressions: Service Date/Time: Monday, March 20, 2017 07:28 - CONCLUSION: 1. Normal intracranial vasculature. 2. Pulmonary consolidation and effusions are noted. Yehuda Oro MD Cervical Spine CT 03/20/17 0000 Signed Impressions: Service Date/Time: Monday, March 20, 2017 07:06 - CONCLUSION: Degenerative changes are noted without fracture or listhesis. Bilateral upper lobe consolidative opacity. Yehuda Oro MD Objective Remarks GENERAL: Middle-aged male, lying in bed, intubated, sedated, more responsive, but very somnolent. HEENT: Normocephalic. Atraumatic. Pupils equal, round, reactive, conjugate. Mucous membranes are moist NECK: Trachea is midline. There is no JVD. CHEST: Equal chest rise. Clear to auscultation. CARDIOVASCULAR: Rate, regular rhythm. Sinus by telemetry ABDOMEN: Soft, nontender, nondistended. No guarding. MUSCULOSKELETAL: Pulses 2+. No peripheral edema. NEUROLOGICAL: withdraws to pain. purposeful. does not follow commands. opens eyes to sternal rub. still very somnolent. RASS -3. 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 Certainly the combination of a TIPS procedure and discontinuation of his Lactulose could cause worsening of his hepatic encephalopathy. Now clinically starting to improve. Still not ready for extubation from mental status standpoint. continue frequent neuro checks and SBT today, though would fail at this point for mental status. Still with multiple medical problems. Critically ill today. Plan by systems: Neurologic: Hepatic encephalopathy Possible seizure-like activity Hyperammonemia Frequent neuro checks Propofol for vent synchrony Goal RASS -2 EEG results pending. Trend ammonia levels, currently downtrending. Lactulose and rifaximin Respiratory: Acute hypoxic and hypercarbic respiratory failure- improving. SBT today. will likely fail for mental status. Head of bed at 30 Vent bundle Wean FiO2 for goal SPO2 greater than 90% Nebs Cardiovascular: Continue telemetry Renal: continue Cruz today. need for accurate I/Os. -- Strict I/Os FEN/GI: End-stage liver disease Lactic acidosis- resolving. Daily LFTs, BMP Nothing by mouth for now. will start TF if patient unable to extubate. continue mivf NS @ 100cc/hr for now. will d/c mivf once TF at goal. will stop trending lactate, downtrending. may take extended time to clear given hepatic function Heme/ID: Coagulopathy secondary to liver disease Thrombocytopenia secondary to liver disease Daily CBC No infectious etiology suspected this time Does not meet transfusion triggers at this time Daily coags Endocrine: Hyperglycemia of critical illness -- SSI, medium scale, every 6 Prophylaxis: GI Prophylaxis Protonix DVT Prophylaxis -- SCDs Holding pharmacologic DVT prophylaxis in the setting of end-stage liver disease with coagulopathy Lines: Peripheral IVs Cruz Dispo: remain in the ICU. He remains critically ill Alvarez Lemus MD Mar 21, 2017 13:15
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
--- NOTE | 2017-03-21 16:54 | MG ---
cc: DOROTHEA STALLWORTH MD Lab No: [id number] Date: 03/21/17 Age: 57 Sex: M Race: DATE OF [birth year][address] Bryan Intubated, sedated on Diprivan at 23 mcg. Hyperventilation omitted. Photic was only done. Diprivan turned to 15 mcg at start of study. Deep tactile stimulation done, withdrew all four extremities, follows commands and answers with a yes or no head shake. CT remote right frontal infarct found unresponsive then fell to the ground face-down with agonal respirations, history of end-stage renal disease, head trauma, liver disease. MEDICATIONS Rifaximin, Insulin, Albuterol, Protonix, Propofol DESCRIPTION OF RECORD There is a 5-6 Hz background scattered between theta and there was some occasional delta wave slowing. Was lying supine, so head was tilted to the right. There was some artifact from the blood pressure cuff going off. There are sharp waves seen bilaterally at epoch 87, mild driving response with photic stimulation but there is a lot of artifact. IMPRESSION Background slowing may be due to medicine effect as well as encephalopathy, but there was mixed isolated sharp waves seen bilaterally without active seizure-like events. Clinical correlation. Dorothea Stallworth MD DF/ /3:49 PM /4:51 PM
[2017-03-22] VITALS (21 sets, daily range): BP systolic 110–130; BP diastolic 53–60; PULSE 70–79; RESP 14–21; TEMP 97.6–99; O2SAT 97–100
[2017-03-22] MEDS: LACTATED RINGER'S 1000 ML INJ 1,000 ML IV SCH ×3 (00:13→19:33)
[2017-03-22] MEDS: PROPOFOL 1000 MG/100 ML INJ 100 ML IV SCH ×4 (00:13→22:20)
[2017-03-22] MEDS: CHLORHEXIDINE GLUCONATE 2 % 1 PACK (2 CLOTHS) TOP SCH (03:44)
[2017-03-22] MEDS: RESP: ALBUTEROL 2.5 MG/IPRATROPIUM 0.5 MG NEB (SCH) INH ×3 (04:04→19:38)
[2017-03-22 05:16] LABS: HEMATOCRIT 23.1 % (39.0-51.0); MEAN CELL VOLUME 87.4 FL (80.0-100.0); MEAN CORPUSCULAR HEMOGLOBIN 28.6 PG (27.0-34.0); MEAN CORPUSCULAR HGB CONC 32.7 % (32.0-36.0); PLATELET COUNT 29 TH/MM3 (150-450); RED BLOOD COUNT 2.64 MIL/MM3 (4.50-5.90); RED CELL DISTRIBUTION WIDTH 16.5 % (11.6-17.2); WHITE BLOOD COUNT 2.2 TH/MM3 (4.0-11.0)
[2017-03-22 05:22] LABS: REVIEW FLAG FINAL
[2017-03-22] MEDS: RIFAXIMIN 200 MG TAB PO SCH ×3 (05:39→22:20)
[2017-03-22 05:41] LABS: APTT (PATIENT) 38.1 SEC (24.3-30.1); INTERNATIONAL NORMALIZED RATIO 1.4 RATIO; PROTHROMBIN TIME - PATIENT 16.2 SEC (9.8-11.6)
[2017-03-22 05:45] LABS: BICARBONATE 25.2 MEQ/L (21.0-32.0); POTASSIUM 3.7 MEQ/L (3.5-5.1)
[2017-03-22 05:47] LABS: TOTAL BILIRUBIN ADULT 2.3 MG/DL (0.2-1.0)
[2017-03-22] MEDS: INSULIN NovoLIN REGULAR SUPPLEMENTAL SCALE SQ SCH ×4 (06:00→17:47)
--- NOTE | 2017-03-22 07:44 | HHI.CCPN ---
Subjective Remarks/Hospital Course Hospital Course: This is a 57-year-old male who is brought in by EMS for altered mental status. According to the EMS report, the patient has a history of end-stage liver disease and was talking to his when he became acutely unresponsive and fell forward onto the ground. EMS attempted intubation was unsuccessful. He was brought in the emergency department where he was successfully intubated. CT CT angiogram head and neck are negative for acute stroke, although he does have evidence of old prior ischemic stroke in the right frontal lobe. Laboratory values are significant for a lactate of 7, and ammonia of 300. White count is normal. Patient does have laboratory evidence of end-stage liver disease including elevated INR, low albumin, thrombocytopenia. In talking with his , she states that he fell to the ground and had rhythmic shaking like movements. She states that he has been evaluated on multiple occasions for liver transplantation and the center that he was evaluated and did not feel that he was a good transplant candidate at this time. Unfortunately patient is unresponsive and intubated and cannot provide additional history. His does state that he has had a prior TIPS procedure and she is unclear whether or not he has ever had hepatic encephalopathy in the past Subjective: 03/21: ammonia downtrending. leukopenic and thrombocytopenic this morning, but may have a component of dilution. more awake today, but not yet following commands. spoke with and she would like a palliative care consult to help clarify her own goals of care regarding his ongoing transplant work-up and what the future of his ESLD might look like. 03/22 Patien tis sedated with Diprivan and intubated. Afebrile. Objective Vital Signs Date Time Temp Pulse Resp B/P Pulse Ox O2 Delivery O2 Flow Rate FiO2 03/22/17 06:00 71 03/22/17 04:03 98 35 03/22/17 04:00 97.8 14 110/57 03/20/17 08:52 Auto-Vent 03/20/17 06:42 15 Intake and Output 03/21/17 03/21/17 03/22/17 08:00 16:00 00:00 Intake Total 948 ml 968 ml 988 ml Output Total 650 ml 575 ml 450 ml Balance 298 ml 393 ml 538 ml Result Diagram: 03/22/17 0500 03/22/17 0500 Other Results Laboratory Tests Test 03/22/17 05:00 White Blood Count 2.2 TH/MM3 Red Blood Count 2.64 MIL/MM3 Hemoglobin 7.6 GM/DL Hematocrit 23.1 % Mean Corpuscular Volume 87.4 FL Mean Corpuscular Hemoglobin 28.6 PG Mean Corpuscular Hemoglobin 32.7 % Concent Red Cell Distribution Width 16.5 % Platelet Count 29 TH/MM3 Mean Platelet Volume 7.6 FL Prothrombin Time 16.2 SEC Prothromb Time International 1.4 RATIO Ratio Activated Partial 38.1 SEC Thromboplast Time Sodium Level 145 MEQ/L Potassium Level 3.7 MEQ/L Chloride Level 113 MEQ/L Carbon Dioxide Level 25.2 MEQ/L Anion Gap 7 MEQ/L Blood Urea Nitrogen 11 MG/DL Creatinine 0.65 MG/DL Estimat Glomerular Filtration 126 ML/MIN Rate Random Glucose 116 MG/DL Calcium Level 7.5 MG/DL Total Bilirubin 2.3 MG/DL Direct Bilirubin 1.3 MG/DL Indirect Bilirubin 1.0 MG/DL Aspartate Amino Transf 68 U/L (AST/SGOT) Alanine Aminotransferase 30 U/L (ALT/SGPT) Alkaline Phosphatase 102 U/L Ammonia 65 MCMOL/L Total Protein 5.6 GM/DL Albumin 2.0 GM/DL Imaging Last Impressions Head CT 03/20/17637 Signed Impressions: Service Date/Time: Monday, March 20, 2017 07:05 - CONCLUSION: 1. Right maxillary sinus mucosal thickening. 2. Remote right frontal infarct. Yehuda Oro MD Chest X-Ray 03/20/17637 Signed Impressions: Service Date/Time: Monday, March 20, 2017 08:06 - CONCLUSION: Left lower lobe consolidation, apparent widening of the superior mediastinal contour which can be further evaluated with CT chest with contrast if felt clinically warranted. Yehuda Oro MD Neck CTA 03/20/17 0000 Signed Impressions: Service Date/Time: Monday, March 20, 2017 07:28 - CONCLUSION: 1. No evidence for hemodynamically significant stenosis of either carotid artery. Yehuda Oro MD Maxillofacial CT 03/20/17 0000 Signed Impressions: Service Date/Time: Monday, March 20, 2017 07:02 - CONCLUSION: 1. There is a fracture the right maxillary sinus wall and right orbital floor which are felt to be nonacute with evidence of previous surgery and periosteal thickening. 2. Small air-fluid level left sphenoid sinus, and moderate circumferential mucosal thickening in the right maxillary sinus. Yehuda Oro MD Head CTA 03/20/17 0000 Signed Impressions: Service Date/Time: Monday, March 20, 2017 07:28 - CONCLUSION: 1. Normal intracranial vasculature. 2. Pulmonary consolidation and effusions are noted. Yehuda Oro MD Cervical Spine CT 03/20/17 0000 Signed Impressions: Service Date/Time: Monday, March 20, 2017 07:06 - CONCLUSION: Degenerative changes are noted without fracture or listhesis. Bilateral upper lobe consolidative opacity. Yehuda Oro MD Objective Remarks GENERAL: Middle-aged male, lying in bed, intubated, sedated, more responsive, but very somnolent. HEENT: Normocephalic. Atraumatic. Pupils equal, round, reactive, conjugate. Mucous membranes are moist NECK: Trachea is midline. There is no JVD. CHEST: Equal chest rise. Clear to auscultation. CARDIOVASCULAR: Rate, regular rhythm. Sinus by telemetry ABDOMEN: Soft, nontender, nondistended. No guarding. MUSCULOSKELETAL: Pulses 2+. No peripheral edema. NEUROLOGICAL: withdraws to pain. purposeful. does not follow commands. opens eyes to sternal rub. still very somnolent. RASS -3. 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 Certainly the combination of a TIPS procedure and discontinuation of his Lactulose could cause worsening of his hepatic encephalopathy. Now clinically starting to improve. Still not ready for extubation from mental status standpoint. continue frequent neuro checks and SBT today, though would fail at this point for mental status. Still with multiple medical problems. Critically ill today. Plan by systems: Neurologic: Hepatic encephalopathy Possible seizure-like activity Hyperammonemia Frequent neuro checks Propofol for vent synchrony. Daily sedation vacation Goal RASS -2 EEG showed background slowing, no active seizure like events. Trend ammonia levels, currently downtrending. Continue Lactulose and rifaximin -03/20: CT brain: Right maxillary sinus mucosal thickening. Remote right frontal infarct. Respiratory: Acute hypoxic and hypercarbic respiratory failure- Continue with vent support keep sat >92% -Bronchodilators, ICU vent bundle. -SBT daily as micah. -Check CT chest ( CXR showed LLL consolidation with widening of superior mediastinal contour) Cardiovascular: Monitor HR and BP keep MAP>65mmHg -Lactic acid 2.3 on 03/20 from 7.9 Renal: Monitor renal function, I/O's, electrolytes replacement per protocol. -On LR @100ml/hr FEN/GI: End-stage liver disease Lactic acidosis- resolving. Daily LFTs, BMP On Glucerna 1.5 with goal rate 40ml/hr Heme Coagulopathy secondary to liver disease Thrombocytopenia secondary to liver disease Pancytopenia Monitor CBC and Coags, check Hemoccult stool No infectious etiology suspected this time ID Monitor for signs of infections ( Fever, WBC) check sputum cx Place on empiric abx ( Zosyn)- CXR showed LLL consolidation Endocrine: Hyperglycemia of critical illness -- SSI, medium scale, every 6 Prophylaxis: GI Prophylaxis Protonix DVT Prophylaxis -- SCDs Holding pharmacologic DVT prophylaxis in the setting of end-stage liver disease with coagulopathy Lines: Peripheral IVs Cruz Palliative care is following Dispo: remain in the ICU. He remains critically ill Breanna Valencia MD Mar 22, 2017 07:44
[2017-03-22] MEDS: LACTULOSE SYRUP 20 GM/30 ML CUP PO SCH ×4 (08:10→19:17)
[2017-03-22] MEDS: CHLORHEXIDINE 0.12% (ORAL KIT) 15 ML CUP MT SCH ×2 (08:10→19:16)
[2017-03-22] MEDS: PANTOPRAZOLE SODIUM 40 MG VIAL IV SCH (08:10)
[2017-03-22] MEDS: PIPERACIL-TAZO 4.5 GM PREMIX 100 ML IV SCH ×3 (08:15→19:17)
[2017-03-22] MEDS ORDERED: IOHEXOL 350 MG/ML 10 ML VIAL (for RAD DIAG) IV ONE (08:41)
--- NOTE | 2017-03-22 09:16 | RADRPT ---
EXAM DATE/TIME: 03/22/2017 08:41 [facility] COMPARISON: CHEST SINGLE AP, March 20, 2017, 8:06. INDICATIONS : Left lung consolidation. Possible widened mediastinum. IV CONTRAST: 65 cc Omnipaque 350 (iohexol) IV RADIATION DOSE: 9.29 CTDIvol (mGy) MEDICAL HISTORY : Hepatitis C. SURGICAL HISTORY : None. ENCOUNTER: Initial ACUITY: 1 day PAIN SCALE: Non-responsive LOCATION: chest TECHNIQUE: Volumetric scanning of the chest was performed. Using automated exposure control and adjustment of t he mA and/or kV according to patient size, radiation dose was kept as low as reasonably achievable to obtain optimal diagnostic quality images. DICOM format image data is available electronically for review and comparison. FINDINGS: LUNGS: Bilateral airspace consolidation in the lower lobes. There are scattered patchy ground glass opacitie s in the right upper lobe. PLEURA: Very trace right-sided pleural effusion. MEDIASTINUM: Patient is intubated. There are numerous subcentimeter periaortic and mediastinal lymph nodes which d o not meet CT size criteria but are notable for number. Heart is borderline enlarged. There is promin ence of the main pulmonary artery which measures up to 3.6 cm. Thoracic aorta is normal in caliber. AXILLAE: Within normal limits. No lymphadenopathy. SKELETAL: No focal abnormal lytic or blastic bony lesions. MISCELLANEOUS: Cirrhotic appearing liver. There is a TIPS in place. Visualized portions of the spleen demonstrate sp lenomegaly. There are gallstones in the gallbladder which otherwise appears unremarkable by CT. There is trace amount of ascites in the abdomen. There is an NGT which terminates in the distal stomach. CONCLUSION: 1. Bilateral lower lobe consolidation may reflect atelectasis or aspiration. 2. Scattered subtle patchy ground glass opacities in the right upper lobe may reflect volume loss alt pippa developing infection cannot be excluded. 3. Numerous nonspecific subcentimeter mediastinal nodes which do not meet CT size criteria but may garcia ve contributed to widened mediastinum on chest radiograph. Although differential considerations inclu de both benign and malignant etiologies an infectious/inflammatory process is favored. 4. Prominence of the main pulmonary artery in this patient with cirrhosis and TIPS consistent with pu lmonary artery hypertension. 5. Trace right pleural effusion and trace ascites in the visualized upper abdomen. Evangelist Cornell MD on March 22, 2017 at 8:59 Board Certified Radiologist. This report was verified electronically.
--- NOTE | 2017-03-22 16:50 | HHI.HCPN ---
Reason for visit a. To assist with evaluation and management of symptoms including: Encephalopathy, pain b. To assist medical decision maker(s) with: better understanding of current medical conditions; weighing benefits/burdens of medical treatment options; making medical treatment decisions. . Subjective/Interval History INTERVAL NOTE: The patient remains severely encephalopathic. His ammonia is trending down. The nurse reports the patient's raised the issue of transplant again. The told me that the patient had been evaluated 3 times at the [facility] and had been turned down for transplant list. . Advance Directives Living Will: Never completed Health Care Surrogate: Never completed Durable Power of Waterproof Bag Sewer: Never completed Objective Vital Signs Date Time Temp Pulse Resp B/P Pulse Ox O2 Delivery O2 Flow Rate FiO2 03/22/17 16:00 35 03/22/17 16:00 98.5 74 20 129/60 100 03/22/17 16:00 74 03/22/17 14:00 79 03/22/17 12:00 71 03/22/17 12:00 98.0 71 15 114/56 99 03/22/17 12:00 35 03/22/17 11:25 100 35 03/22/17 10:00 72 03/22/17 09:00 35 03/22/17 08:58 99 100 03/22/17 08:03 35 03/22/17 08:00 98.3 71 14 115/57 99 03/22/17 08:00 71 03/22/17 08:00 35 03/22/17 07:42 98 35 03/22/17 06:00 71 03/22/17 04:03 98 35 03/22/17 04:00 35 03/22/17 04:00 70 03/22/17 04:00 97.8 70 14 110/57 98 03/22/17 03:00 70 15 111/53 98 03/22/17 02:00 71 15 110/53 98 03/22/17 02:00 71 03/22/17 01:03 97 35 03/22/17 01:00 71 15 113/54 98 03/22/17 00:00 71 03/22/17 00:00 74 14 112/53 98 03/22/17 00:00 97.6 74 14 112/53 98 03/22/17 00:00 35 03/21/17 22:25 97 35 03/21/17 22:00 77 03/21/17 20:00 98.1 75 16 109/56 98 03/21/17 20:00 35 03/21/17 19:58 98 35 03/21/17 18:00 78 03/21/17 18:00 78 15 113/58 98 03/21/17 17:00 81 15 115/55 97 Intake & Output 03/22/17 03/22/17 07:00 19:00 Intake Total 1990 ml Output Total 950 ml Balance 1040 ml Intake IV Total 1749 ml Tube Feeding 61 ml Other 180 ml Output Urine Total 800 ml Gastric Drainage Total 150 ml # Bowel Movements 1 Physical Exam CONSTITUTIONAL/GENERAL: This is an adequately nourished patient, in no apparent distress, in the IMC, intubated NECK: Trachea midline. Supple, nontender. No palpable thyroid enlargement or nodularity. CARDIOVASCULAR: Regular rate and rhythm without murmurs, gallops, or rubs. No JVD. Peripheral pulses symmetric. RESPIRATORY/CHEST: Symmetric, unlabored respirations. Clear to auscultation. Breath sounds equal bilaterally. No wheezes, rales, or rhonchi. GASTROINTESTINAL: Abdomen soft, non-tender, nondistended. No hepato-splenomegaly , or palpable masses. No guarding. Bowel sounds present. GENITOURINARY: Without palpable bladder distension. Cruz catheter in place. MUSCULOSKELETAL: Extremities without clubbing, cyanosis, or edema. No joint tenderness or effusion noted. No calf tenderness. No mottling or clubbing. NEUROLOGICAL: Unresponsive, sedated on the vent. PSYCHIATRIC: Unable to assess due to clinical condition . Diagnostic Tests Laboratory Laboratory Tests Test 03/20/17 03/20/17 03/20/17 03/20/17 06:52 08:10 08:54 09:45 White Blood Count 7.4 TH/MM3 (4.0-11.0) Red Blood Count 3.18 MIL/MM3 (4.50-5.90) Hemoglobin 9.2 GM/DL (13.0-17.0) Hematocrit 28.7 % (39.0-51.0) Mean Corpuscular Volume 90.1 FL (80.0-100.0) Mean Corpuscular Hemoglobin 29.0 PG (27.0-34.0) Mean Corpuscular Hemoglobin 32.2 % Concent (32.0-36.0) Red Cell Distribution Width 16.6 % (11.6-17.2) Platelet Count 63 TH/MM3 (150-450) Mean Platelet Volume 7.3 FL (7.0-11.0) Neutrophils (%) (Auto) 76.0 % (16.0-70.0) Lymphocytes (%) (Auto) 11.3 % (9.0-44.0) Monocytes (%) (Auto) 6.2 % (0.0-8.0) Eosinophils (%) (Auto) 5.1 % (0.0-4.0) Basophils (%) (Auto) 1.4 % (0.0-2.0) Neutrophils # (Auto) 5.7 TH/MM3 (1.8-7.7) Lymphocytes # (Auto) 0.8 TH/MM3 (1.0-4.8) Monocytes # (Auto) 0.5 TH/MM3 (0-0.9) Eosinophils # (Auto) 0.4 TH/MM3 (0-0.4) Basophils # (Auto) 0.1 TH/MM3 (0-0.2) CBC Comment AUTO DIFF Differential Comment AUTO DIFF CONFIRMED Platelet Estimate LOW (NORMAL) Platelet Morphology Comment NORMAL (NORMAL) Ovalocytes 1+ (NORMAL) Acanthocytes OCC (NORMAL) Prothrombin Time 16.2 SEC (9.8-11.6) Prothromb Time International 1.4 RATIO Ratio Activated Partial 32.4 SEC Thromboplast Time (24.3-30.1) Urine Color YELLOW (YELLW/STRAW) Urine Turbidity HAZY (CLEAR) Urine pH 6.0 (5.0-8.5) Urine Specific [place] 1.015 (1.002-1.035) Urine Protein 100 mg/dL (NEG-TRACE) Urine Glucose (UA) NEG mg/dL (NEG) Urine Ketones NEG mg/dL (NEG) Urine Occult Blood MOD (NEG) Urine Nitrite NEG (NEG) Urine Bilirubin NEG (NEG) Urine Urobilinogen LESS THAN 2.0 MG/DL (LESS THAN 2.0) Urine Leukocyte Esterase NEG (NEG) Urine RBC 8 /hpf (0-3) Urine WBC 2 /hpf (0-5) Urine Squamous Epithelial <1 /hpf (0-5) Cells Urine Amorphous Sediment MOD Urine Bacteria OCC /hpf (NONE) Urine Hyaline Casts 1 /lpf (RARE) Urine Mucus FEW /lpf (OCC) Microscopic Urinalysis Comment CATH-CULTURE IND Sodium Level 144 MEQ/L (136-145) Potassium Level 4.5 MEQ/L (3.5-5.1) Chloride Level 114 MEQ/L (98-107) Carbon Dioxide Level 18.3 MEQ/L (21.0-32.0) Anion Gap 12 MEQ/L (5-15) Blood Urea Nitrogen 7 MG/DL (7-18) Creatinine 0.89 MG/DL (0.60-1.30) Estimat Glomerular Filtration 87 ML/MIN (>89) Rate Random Glucose 128 MG/DL (74-106) Lactic Acid Level 7.9 mmol/L 2.3 mmol/L (0.4-2.0) (0.4-2.0) Calcium Level 7.3 MG/DL (8.5-10.1) Protein Corrected Calcium 7.5 MG/DL (8.5-10.1) Total Bilirubin 1.6 MG/DL (0.2-1.0) Aspartate Amino Transf 79 U/L (15-37) (AST/SGOT) Alanine Aminotransferase 34 U/L (12-78) (ALT/SGPT) Alkaline Phosphatase 160 U/L (45-117) Ammonia 312 MCMOL/L (11-32) Total Creatine Kinase 101 U/L (39-308) Troponin I 0.02 NG/ML (0.02-0.05) Total Protein 6.7 GM/DL (6.4-8.2) Albumin 2.4 GM/DL (3.4-5.0) Thyroid Stimulating Hormone 5.680 uIU/ML 3rd Gen (0.358-3.740) Urine Opiates Screen NEG (NEG) Acetaminophen Level LESS THAN 2.0 MCG/ML (10.0-30.0) Urine Barbiturates Screen NEG (NEG) Urine Amphetamines Screen NEG (NEG) Urine Benzodiazepines Screen NEG (NEG) Urine Cocaine Screen NEG (NEG) Urine Cannabinoids Screen NEG (NEG) Ethyl Alcohol Level LESS THAN 3 MG/DL (0-5) Blood Gas Puncture Site RT RADIAL Blood Gas Patient Temperature 98.6 Blood Gas HCO3 20 mmol/L (22-26) Blood Gas Base Excess -4.8 mmol/L (-2-2) Blood Gas Oxygen Saturation 91 % (90-100) Arterial Blood pH 7.32 (7.380-7.420) Arterial Blood Partial 40 mmHg (38-42) Pressure CO2 Arterial Blood Partial 74 mmHG Pressure O2 (61-120) Arterial Blood Oxygen Content 10.8 Vol % (12.0-20.0) Arterial Blood 1.6 % (0-4) Carboxyhemoglobin Arterial Blood Methemoglobin 0.9 % (0-2) Blood Gas Hemoglobin 8.4 G/DL (12.0-16.0) Oxygen Delivery Device VENTILATOR Blood Gas Ventilator Setting A/C500/15/PEEP5 Blood Gas Inspired Oxygen 40 % Nasal Screen MRSA (PCR) MRSA DETECTED (NOT DETECT) Test 03/20/17 03/21/17 03/22/17 11:33 04:51 05:00 Salicylates Level LESS THAN 1.7 MG/DL (2.8-20.0) White Blood Count 2.6 TH/MM3 2.2 TH/MM3 (4.0-11.0) (4.0-11.0) Red Blood Count 2.52 MIL/MM3 2.64 MIL/MM3 (4.50-5.90) (4.50-5.90) Hemoglobin 7.3 GM/DL 7.6 GM/DL (13.0-17.0) (13.0-17.0) Hematocrit 22.1 % 23.1 % (39.0-51.0) (39.0-51.0) Mean Corpuscular Volume 87.6 FL 87.4 FL (80.0-100.0) (80.0-100.0) Mean Corpuscular Hemoglobin 28.8 PG 28.6 PG (27.0-34.0) (27.0-34.0) Mean Corpuscular Hemoglobin 32.9 % 32.7 % Concent (32.0-36.0) (32.0-36.0) Red Cell Distribution Width 16.4 % 16.5 % (11.6-17.2) (11.6-17.2) Platelet Count 30 TH/MM3 29 TH/MM3 (150-450) (150-450) Mean Platelet Volume 7.9 FL 7.6 FL (7.0-11.0) (7.0-11.0) Prothrombin Time 17.8 SEC 16.2 SEC (9.8-11.6) (9.8-11.6) Prothromb Time International 1.6 RATIO 1.4 RATIO Ratio Activated Partial 38.7 SEC 38.1 SEC Thromboplast Time (24.3-30.1) (24.3-30.1) Sodium Level 145 MEQ/L 145 MEQ/L (136-145) (136-145) Potassium Level 3.6 MEQ/L 3.7 MEQ/L (3.5-5.1) (3.5-5.1) Chloride Level 114 MEQ/L 113 MEQ/L (98-107) (98-107) Carbon Dioxide Level 21.8 MEQ/L 25.2 MEQ/L (21.0-32.0) (21.0-32.0) Anion Gap 9 MEQ/L (5-15) 7 MEQ/L (5-15) Blood Urea Nitrogen 11 MG/DL (7-18) 11 MG/DL (7-18) Creatinine 0.72 MG/DL 0.65 MG/DL (0.60-1.30) (0.60-1.30) Estimat Glomerular Filtration 112 ML/MIN 126 ML/MIN Rate (>89) (>89) Random Glucose 131 MG/DL 116 MG/DL (74-106) (74-106) Calcium Level 7.5 MG/DL 7.5 MG/DL (8.5-10.1) (8.5-10.1) Total Bilirubin 2.1 MG/DL 2.3 MG/DL (0.2-1.0) (0.2-1.0) Direct Bilirubin 1.1 MG/DL 1.3 MG/DL (0.0-0.2) (0.0-0.2) Indirect Bilirubin 1.0 MG/DL 1.0 MG/DL (0.0-0.8) (0.0-0.8) Aspartate Amino Transf 66 U/L (15-37) 68 U/L (15-37) (AST/SGOT) Alanine Aminotransferase 29 U/L (12-78) 30 U/L (12-78) (ALT/SGPT) Alkaline Phosphatase 97 U/L (45-117) 102 U/L (45-117) Ammonia 67 MCMOL/L 65 MCMOL/L (11-32) (11-32) Total Protein 5.3 GM/DL 5.6 GM/DL (6.4-8.2) (6.4-8.2) Albumin 2.0 GM/DL 2.0 GM/DL (3.4-5.0) (3.4-5.0) Result Diagram: 03/22/17 0500 03/22/17 0500 Microbiology Microbiology Date/Time Procedure Status Source Growth 03/20/17 06:47 Aerobic Blood Culture - Preliminary Resulted Blood Peripheral NO GROWTH IN 2 DAYS 03/20/17 06:47 Anaerobic Blood Culture - Preliminary Resulted Blood Peripheral NO GROWTH IN 2 DAYS 03/20/17 06:52 Aerobic Blood Culture - Preliminary Resulted Blood Peripheral NO GROWTH IN 2 DAYS 03/20/17 06:52 Anaerobic Blood Culture - Preliminary Resulted Blood Peripheral NO GROWTH IN 2 DAYS 03/20/17 06:52 Urine Culture - Final Complete Urine Catheterized Urine NO GROWTH IN 48 HOURS. Imaging Last Impressions Chest CT 03/22/17 0000 Signed Impressions: Service Date/Time: March 08:41 - CONCLUSION: 1. Bilateral lower lobe consolidation may reflect atelectasis or aspiration. 2. Scattered subtle patchy ground glass opacities in the right upper lobe may reflect volume loss although developing infection cannot be excluded. 3. Numerous nonspecific subcentimeter mediastinal nodes which do not meet CT size criteria but may have contributed to widened mediastinum on chest radiograph. Although differential considerations include both benign and malignant etiologies an infectious/inflammatory process is favored. 4. Prominence of the main pulmonary artery in this patient with cirrhosis and TIPS consistent with pulmonary artery hypertension. 5. Trace right pleural effusion and trace ascites in the visualized upper abdomen. Evangelist Cornell MD Head CT 03/20/17637 Signed Impressions: Service Date/Time: Monday, March 20, 2017 07:05 - CONCLUSION: 1. Right maxillary sinus mucosal thickening. 2. Remote right frontal infarct. Yehuda Oro MD Chest X-Ray 03/20/17637 Signed Impressions: Service Date/Time: Monday, March 20, 2017 08:06 - CONCLUSION: Left lower lobe consolidation, apparent widening of the superior mediastinal contour which can be further evaluated with CT chest with contrast if felt clinically warranted. Yehuda Oro MD Neck CTA 03/20/17 0000 Signed Impressions: Service Date/Time: Monday, March 20, 2017 07:28 - CONCLUSION: 1. No evidence for hemodynamically significant stenosis of either carotid artery. Yehuda Oro MD Maxillofacial CT 03/20/17 0000 Signed Impressions: Service Date/Time: Monday, March 20, 2017 07:02 - CONCLUSION: 1. There is a fracture the right maxillary sinus wall and right orbital floor which are felt to be nonacute with evidence of previous surgery and periosteal thickening. 2. Small air-fluid level left sphenoid sinus, and moderate circumferential mucosal thickening in the right maxillary sinus. Yehuda Oro MD Head CTA 03/20/17 0000 Signed Impressions: Service Date/Time: Monday, March 20, 2017 07:28 - CONCLUSION: 1. Normal intracranial vasculature. 2. Pulmonary consolidation and effusions are noted. Yehuda Oro MD Cervical Spine CT 03/20/17 0000 Signed Impressions: Service Date/Time: Monday, March 20, 2017 07:06 - CONCLUSION: Degenerative changes are noted without fracture or listhesis. Bilateral upper lobe consolidative opacity. Yehuda Oro MD Procedures INTUBATION 03/20/17 . Assessment and Plan Disease Oriented Problem List: (1) end-stage liver disease, currently with MELD score 14 (2) remote history of alcohol abuse, reportedly none in 25 years (3) history of hepatitis C, s/p Harvoni treatment (4) hepatic encephalopathy (5) evaluated at [facility] but felt to NOT be a liver transplant candidate (6) history of chronic pain syndrome (and possible drug-seeking behavior in the past per ) (7) fall with right shoulder fracture, September 2016 (8) closed head injury, with abrasion/contusion of forehead (9) apparent seizure, with no history of prior seizures Symptom Scale: (1) pain 0-10 Scale: Unable to quantify (2) encephalopathy 0-10 Scale: Unable to quantify Pertinent Non-Medical Issues Psychosocial: Disabled, , has 3 longtime estranged children, 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 Spiritual: The patient was raised Church, but is now quite spiritual and connected to a protestant synagogue. The patient's has requested assortment planner visits here at the hospital. Legal: The patient lacks capacity for decision-making at this time. It is possible that he will regain that capacity; in the meantime, the patient's spouse Lo is the decision-maker by proxy. Ethical issues impacting care: None . Important Contacts : Lo Trinh . Prognosis The patient's overall prognosis is guarded. He has significant liver disease, overall weakness/debility, is not a candidate for transplantation, and now has another episode of significant hepatic encephalopathy. The patient's plans to reengage hospice services when they return home to [facility], assuming he survives this hospitalization. . Code Status: No Code Plan * DO NOT RESUSCITATE * DECISION-MAKING: The patient lacks capacity for decision-making at this time. It is possible but uncertain whether he will regain that capacity; in the meantime, the patient's spouse Lo is the decision-maker by proxy. * GOALS: The patient's has requested DNR status for him. She says she does not want him to be uncomfortable. She notes that they did contact a hospice organization in [facility] a week or 2 ago and the patient spoke with them "but he was afraid." She notes that she will reengage with hospice when they return home, assuming he survives this hospitalization. She is hoping that the patient really awakens, is extubated, and eventually they get to return to their home in [facility]. * SYMPTOMS: The patient's encephalopathy is being treated with rifaximin and lactulose. He remains on mechanical ventilation and sedation, and has no obvious pain at this time. No additional medication recommendations are made. * Palliative Care will continue to follow the patient during this hospitalization. . Time Spent Total Floor Time (mins): 29 Face to Face Time (mins): 12 >50% Counseling/Coord of Care: Yes (d/w RN) Attestation To help prompt me to consider important information that might be impacting today's encounter and assessment, information from prior notes written by myself or my colleagues may have been "brought forward" into today's note. My signature on this note, however, is an attestation that I personally performed the exam, history, and/or decision-making noted today, and, unless otherwise indicated, the interactions with patient, family, and staff as well as the review of records all occurred today. I also attest that the listed assessment and stated plan reflect my best clinical judgment today based on the combination of historical information, prior notes, and today's exam/ interactions. When time spent is documented, it refers only to time spent today by the signer, or if indicated, combined time spent today by collaborating physician/nurse practitioner. Dona Vázquez MD Mar 22, 2017 16:50
[2017-03-23] VITALS (17 sets, daily range): BP systolic 128–174; BP diastolic 60–86; PULSE 68–91; RESP 16–27; TEMP 97.4–98.9; O2SAT 92–100
[2017-03-23] MEDS: PIPERACIL-TAZO 4.5 GM PREMIX 100 ML IV SCH ×4 (03:26→21:30)
[2017-03-23] MEDS: PROPOFOL 1000 MG/100 ML INJ 100 ML IV SCH (03:26)
[2017-03-23] MEDS: RESP: ALBUTEROL 2.5 MG/IPRATROPIUM 0.5 MG NEB (SCH) INH ×4 (03:36→22:32)
[2017-03-23] MEDS: CHLORHEXIDINE GLUCONATE 2 % 1 PACK (2 CLOTHS) TOP SCH (04:00)
[2017-03-23] MEDS: INSULIN NovoLIN REGULAR SUPPLEMENTAL SCALE SQ SCH ×4 (06:00→18:00)
[2017-03-23] MEDS: RIFAXIMIN 200 MG TAB PO SCH ×3 (06:00→21:29)
[2017-03-23] MEDS: LACTULOSE SYRUP 20 GM/30 ML CUP PO SCH ×4 (07:28→21:29)
[2017-03-23] MEDS: PANTOPRAZOLE SODIUM 40 MG VIAL IV SCH (07:28)
[2017-03-23] MEDS: LACTATED RINGER'S 1000 ML INJ 1,000 ML IV SCH (07:28)
[2017-03-23] MEDS: CHLORHEXIDINE 0.12% (ORAL KIT) 15 ML CUP MT SCH ×2 (07:28→20:00)
[2017-03-23 08:49] LABS: AUTOMATED NEUTROPHIL # 1.7 TH/MM3 (1.8-7.7); BASOPHIL % 0.4 % (0.0-2.0); EOSINOPHIL # 0.1 TH/MM3 (0-0.4); EOSINOPHIL % 5.8 % (0.0-4.0); HEMATOCRIT 24.4 % (39.0-51.0); LYMPH % 12.2 % (9.0-44.0); LYMPHOCYTE # 0.3 TH/MM3 (1.0-4.8); MEAN CELL VOLUME 87.7 FL (80.0-100.0); MEAN CORPUSCULAR HEMOGLOBIN 28.6 PG (27.0-34.0); MEAN CORPUSCULAR HGB CONC 32.6 % (32.0-36.0); MONO % 9.6 % (0.0-8.0); PLATELET COUNT 33 TH/MM3 (150-450); RED BLOOD COUNT 2.78 MIL/MM3 (4.50-5.90); RED CELL DISTRIBUTION WIDTH 16.6 % (11.6-17.2); WHITE BLOOD COUNT 2.4 TH/MM3 (4.0-11.0)
[2017-03-23 08:51] LABS: HEMO FLAGS AUTO DIFF
[2017-03-23 08:53] LABS: APTT (PATIENT) 39.7 SEC (24.3-30.1); INTERNATIONAL NORMALIZED RATIO 1.5 RATIO; PROTHROMBIN TIME - PATIENT 16.6 SEC (9.8-11.6)
[2017-03-23 08:56] LABS: MAGNESIUM 1.7 MG/DL (1.5-2.5)
[2017-03-23 08:58] LABS: INDIRECT BILIRUBIN 0.8 MG/DL (0.0-0.8)
[2017-03-23 09:00] LABS: POTASSIUM 3.6 MEQ/L (3.5-5.1)
[2017-03-23 09:21] LABS: CALCIUM-PROTEIN CORRECTED 8.3 MG/DL (8.5-10.1)
[2017-03-23 09:44] LABS: ACANTHOCYTES OCC (NORMAL); OVALOCYTES 1+ (NORMAL); PLATELET ESTIMATE SMEAR LOW (NORMAL); PLATELET MORPHOLOGY NORMAL (NORMAL); SCAN/DIFF AUTO DIFF CONFIRMED
[2017-03-23] MEDS ORDERED: RESP: RACEPINEPHRINE 2.25% 0.5 ML NEB ONE (13:48)
--- NOTE | 2017-03-23 16:05 | HHI.CCPN ---
Subjective Remarks/Hospital Course Hospital Course: This is a 57-year-old male who is brought in by EMS for altered mental status. According to the EMS report, the patient has a history of end-stage liver disease and was talking to his when he became acutely unresponsive and fell forward onto the ground. EMS attempted intubation was unsuccessful. He was brought in the emergency department where he was successfully intubated. CT CT angiogram head and neck are negative for acute stroke, although he does have evidence of old prior ischemic stroke in the right frontal lobe. Laboratory values are significant for a lactate of 7, and ammonia of 300. White count is normal. Patient does have laboratory evidence of end-stage liver disease including elevated INR, low albumin, thrombocytopenia. In talking with his , she states that he fell to the ground and had rhythmic shaking like movements. She states that he has been evaluated on multiple occasions for liver transplantation and the center that he was evaluated and did not feel that he was a good transplant candidate at this time. Unfortunately patient is unresponsive and intubated and cannot provide additional history. His does state that he has had a prior TIPS procedure and she is unclear whether or not he has ever had hepatic encephalopathy in the past Subjective: 03/21: ammonia downtrending. leukopenic and thrombocytopenic this morning, but may have a component of dilution. more awake today, but not yet following commands. spoke with and she would like a palliative care consult to help clarify her own goals of care regarding his ongoing transplant work-up and what the future of his ESLD might look like. 03/22 Patien tis sedated with Diprivan and intubated. Afebrile. 03/23: seen and examined around 10am today. patient much more awake and alert than yesterday. currently on CPAP SBT. ammonia stable. patient denies complaints and asked for ett to be removed. Objective Vital Signs Date Time Temp Pulse Resp B/P Pulse Ox O2 Delivery O2 Flow Rate FiO2 03/23/17 13:35 92 Mask 6 50 03/23/17 06:00 71 03/23/17 04:00 97.6 19 136/86 Intake and Output 03/22/17 03/22/17 03/22/17 07:59 15:59 23:59 Intake Total 1002 ml 1412 ml 622 ml Output Total 500 ml 550 ml 300 ml Balance 502 ml 862 ml 322 ml Result Diagram: 03/23/17 0827 03/23/17 0827 Imaging Last Impressions Head CT 03/20/17637 Signed Impressions: Service Date/Time: Monday, March 20, 2017 07:05 - CONCLUSION: 1. Right maxillary sinus mucosal thickening. 2. Remote right frontal infarct. Yehuda Oro MD Chest X-Ray 03/20/17637 Signed Impressions: Service Date/Time: Monday, March 20, 2017 08:06 - CONCLUSION: Left lower lobe consolidation, apparent widening of the superior mediastinal contour which can be further evaluated with CT chest with contrast if felt clinically warranted. Yehuda Oro MD Neck CTA 03/20/17 Signed Impressions: Service Date/Time: Monday, March 20, 2017 07:28 - CONCLUSION: 1. No evidence for hemodynamically significant stenosis of either carotid artery. Yehuda Oro MD Maxillofacial CT 03/20/17 Signed Impressions: Service Date/Time: Monday, March 20, 2017 07:02 - CONCLUSION: 1. There is a fracture the right maxillary sinus wall and right orbital floor which are felt to be nonacute with evidence of previous surgery and periosteal thickening. 2. Small air-fluid level left sphenoid sinus, and moderate circumferential mucosal thickening in the right maxillary sinus. Yehuda Oro MD Head CTA 03/20/17 Signed Impressions: Service Date/Time: Monday, March 20, 2017 07:28 - CONCLUSION: 1. Normal intracranial vasculature. 2. Pulmonary consolidation and effusions are noted. Yehuda Oro MD Cervical Spine CT 03/20/17 Signed Impressions: Service Date/Time: Monday, March 20, 2017 07:06 - CONCLUSION: Degenerative changes are noted without fracture or listhesis. Bilateral upper lobe consolidative opacity. Yehuda Oro MD Objective Remarks GENERAL: Middle-aged male, lying in bed, intubated, sedated, awake, alert. HEENT: Normocephalic. Atraumatic. Pupils equal, round, reactive, conjugate. Mucous membranes are moist NECK: Trachea is midline. There is no JVD. CHEST: Equal chest rise. unlabored. PSV 5/5/40% CARDIOVASCULAR: Rate, regular rhythm. Sinus by telemetry ABDOMEN: Soft, nontender, nondistended. No guarding. MUSCULOSKELETAL: Pulses 2+. No peripheral edema. NEUROLOGICAL: f c x 4. awake, oriented. RASS 0/-1. A/P Assessment and Plan Assessment: 57yM with ESLD secondary to HCV now with what appears to be hepatic encephalopathy. Certainly the combination of a TIPS procedure and discontinuation of his Lactulose could cause worsening of his hepatic encephalopathy. Now clinically improving. will move towards extubation if he passes SBT. Plan by systems: Neurologic: Hepatic encephalopathy- improving. Possible seizure-like activity- resolved. Hyperammonemia- resolving. Frequent neuro checks Goal RASS 0 EEG showed background slowing, no active seizure like events. Trend ammonia levels, currently downtrending. Continue Lactulose and rifaximin -03/20: CT brain: Right maxillary sinus mucosal thickening. Remote right frontal infarct. Respiratory: Acute hypoxic and hypercarbic respiratory failure- improving. Continue with vent support keep sat >92% -Bronchodilators, ICU vent bundle. -SBT daily as micah. will proceed with extubation if he passes SBT. Cardiovascular: Monitor HR and BP keep MAP>65mmHg -Lactic acid 2.3 on 03/20 from 7.9 Renal: Monitor renal function, I/O's, electrolytes replacement per protocol. -On LR @100ml/hr FEN/GI: End-stage liver disease Lactic acidosis- resolved. Daily LFTs, BMP On Glucerna 1.5 with goal rate 40ml/hr -- lactulose, rifaximin. Heme Coagulopathy secondary to liver disease Thrombocytopenia secondary to liver disease Pancytopenia Monitor CBC and Coags, check Hemoccult stool ID Possible aspiration pna Monitor for signs of infections ( Fever, WBC) check sputum cx continue empiric Zosyn. f/u cultures. will de-escalate abx at 48h if no growth. Endocrine: Hyperglycemia of critical illness -- SSI, medium scale, every 6 Prophylaxis: GI Prophylaxis Protonix DVT Prophylaxis -- SCDs Holding pharmacologic DVT prophylaxis in the setting of end-stage liver disease with coagulopathy Lines: Peripheral IVs Cruz Palliative care is following Dispo: remain in the ICU. He remains critically ill Alvarez Lemus MD Mar 23, 2017 16:05
--- NOTE | 2017-03-23 17:55 | RADRPT ---
EXAM DATE/TIME: 03/23/2017 17:24 [facility] COMPARISON: No previous studies available for comparison. INDICATIONS : Abdominal pain. MEDICAL HISTORY : None. SURGICAL HISTORY : None. ENCOUNTER: Initial ACUITY: 1 day PAIN SCORE: 10/10 LOCATION: Bilateral abdomen. FINDINGS: There is seen throughout the colon. There are multiple loops of minimally dilated air-filled small sterling wel in the midabdomen. No gross pneumatosis or free air. No abnormal calcifications. The osseous stru ctures are intact. CONCLUSION: Minimally dilated air-filled loops of small bowel may reflect very mild adynamic ileus versus develop ing partial small bowel obstruction. Evangelist Cornell MD on March 23, 2017 at 17:51 Board Certified Radiologist. This report was verified electronically.
[2017-03-23] MEDS: LINEZOLID 600 MG PREMIX 300 ML IV SCH (18:03)
[2017-03-23] MEDS: FAMOTIDINE 20 MG TAB PO SCH (21:29)
--- NOTE | 2017-03-23 21:55 | RADRPT ---
EXAM DATE/TIME: 03/23/2017 19:11 [facility] COMPARISON: No previous studies available for comparison. INDICATIONS : Increased lab values. MEDICAL HISTORY : Arthritis. Hepatitis C. Seizures. Syncope. Apnea. Dyspnea. Blood transfusion. SURGICAL HISTORY : TIPS procedure. ENCOUNTER: Initial ACUITY: 1 day PAIN SCORE: 8/10 LOCATION: Right upper quadrant MEASUREMENTS: LIVER: 15.5 cm length COMMON DUCT: 7 mm RIGHT KIDNEY: 12.6 x 5.1 x 5.8 cm SPLEEN: 26.7 cm length FINDINGS: Patient has a TIPS shunt in place that does not appear patent. The liver is small, isodense and shru nken. Spleen is enlarged. Common bile duct is poorly seen measuring 7 mm. Gallbladder is poorly se en. Moderate ascites is evident. CONCLUSION: TIPS shunt does not appear to be patent. Michael Marsh MD FACR on March 23, 2017 at 21:30 Board Certified Radiologist. This report was verified electronically.
[2017-03-24] VITALS (10 sets, daily range): BP systolic 100–135; BP diastolic 51–63; PULSE 70–83; RESP 17–24; TEMP 98.5–99.6; O2SAT 84–98
[2017-03-24] MEDS: CHLORHEXIDINE GLUCONATE 2 % 1 PACK (2 CLOTHS) TOP SCH (03:30)
[2017-03-24] MEDS: PIPERACIL-TAZO 4.5 GM PREMIX 100 ML IV SCH ×4 (03:30→21:38)
[2017-03-24] MEDS: RESP: ALBUTEROL 2.5 MG/IPRATROPIUM 0.5 MG NEB (SCH) INH ×4 (04:16→20:03)
[2017-03-24 05:43] LABS: BICARBONATE 26.6 MEQ/L (21.0-32.0); POTASSIUM 3.6 MEQ/L (3.5-5.1)
[2017-03-24 05:46] LABS: INDIRECT BILIRUBIN 1.6 MG/DL (0.0-0.8); TOTAL BILIRUBIN ADULT 3.1 MG/DL (0.2-1.0)
[2017-03-24] MEDS: INSULIN NovoLIN REGULAR SUPPLEMENTAL SCALE SQ SCH ×4 (06:00→18:00)
[2017-03-24] MEDS: LINEZOLID 600 MG PREMIX 300 ML IV SCH ×2 (06:06→18:41)
[2017-03-24] MEDS: RIFAXIMIN 200 MG TAB PO SCH ×3 (06:06→21:38)
[2017-03-24] MEDS ORDERED: FUROSEMIDE 20 MG/2 ML VIAL IV PUSH ONE (06:15)
[2017-03-24 06:20] LABS: APTT (PATIENT) 32.9 SEC (24.3-30.1); INTERNATIONAL NORMALIZED RATIO 1.5 RATIO; PROTHROMBIN TIME - PATIENT 17.3 SEC (9.8-11.6)
[2017-03-24] MEDS: CHLORHEXIDINE 0.12% (ORAL KIT) 15 ML CUP MT SCH ×2 (07:43→20:00)
[2017-03-24] MEDS: LACTULOSE SYRUP 20 GM/30 ML CUP PO SCH ×4 (09:00→21:37)
[2017-03-24] MEDS: FAMOTIDINE 20 MG TAB PO SCH ×2 (10:32→21:38)
[2017-03-24] MEDS: TAMSULOSIN HCL 0.4 MG CAP PO SCH (10:32)
[2017-03-24 11:19] LABS: HEMATOCRIT 24.3 % (39.0-51.0); MEAN CELL VOLUME 86.1 FL (80.0-100.0); MEAN CORPUSCULAR HEMOGLOBIN 27.3 PG (27.0-34.0); MEAN CORPUSCULAR HGB CONC 31.7 % (32.0-36.0); PLATELET COUNT 31 TH/MM3 (150-450); RED BLOOD COUNT 2.82 MIL/MM3 (4.50-5.90); WHITE BLOOD COUNT 2.5 TH/MM3 (4.0-11.0)
[2017-03-24 11:20] LABS: REVIEW FLAG FINAL
[2017-03-24] MEDS ORDERED: DIATRIZOATE MEGLUM/DIATRIZOATE SOD 9 ML CUP PO ONE (11:51)
--- NOTE | 2017-03-24 16:28 | HHI.CCPN ---
Subjective Remarks/Hospital Course Hospital Course: This is a 57-year-old male who is brought in by EMS for altered mental status. According to the EMS report, the patient has a history of end-stage liver disease and was talking to his when he became acutely unresponsive and fell forward onto the ground. EMS attempted intubation was unsuccessful. He was brought in the emergency department where he was successfully intubated. CT CT angiogram head and neck are negative for acute stroke, although he does have evidence of old prior ischemic stroke in the right frontal lobe. Laboratory values are significant for a lactate of 7, and ammonia of 300. White count is normal. Patient does have laboratory evidence of end-stage liver disease including elevated INR, low albumin, thrombocytopenia. In talking with his , she states that he fell to the ground and had rhythmic shaking like movements. She states that he has been evaluated on multiple occasions for liver transplantation and the center that he was evaluated and did not feel that he was a good transplant candidate at this time. Unfortunately patient is unresponsive and intubated and cannot provide additional history. His does state that he has had a prior TIPS procedure and she is unclear whether or not he has ever had hepatic encephalopathy in the past Subjective: 03/21: ammonia downtrending. leukopenic and thrombocytopenic this morning, but may have a component of dilution. more awake today, but not yet following commands. spoke with and she would like a palliative care consult to help clarify her own goals of care regarding his ongoing transplant work-up and what the future of his ESLD might look like. 03/22 Patien tis sedated with Diprivan and intubated. Afebrile. 03/23: seen and examined around 10am today. patient much more awake and alert than yesterday. currently on CPAP SBT. ammonia stable. patient denies complaints and asked for ett to be removed. 03/24: seen and examined around 09:30am. abdominal pain persists. still leukopenic. KUB nonobstructive. liver ultrasound with evidence of no flow through TIPS shunt, patent portal vein, hepatic artery. today the patient's abdominal pain is slightly improved. I evaluated the abdomen with an ultrasound and cannot find a safe bedside pocket of ascites to tap for diagnosis and rule out SBP. will ask radiology to assist with radiologic guided aspiration. from a pulmonary status, improved and on NC o2. from a mental status, patient is almost back to neurologic baseline, only slightly confused at times. I had a conversation with the patient and his about code status and he wants to be made a Full Code (from previous DNR by his ). Objective Vital Signs Date Time Temp Pulse Resp B/P Pulse Ox O2 Delivery O2 Flow Rate FiO2 03/24/17 12:00 70 03/24/17 12:00 98.8 23 121/58 94 03/23/17 13:35 Mask 6 50 Intake and Output 03/23/17 03/23/17 03/24/17 08:00 16:00 00:00 Intake Total 1259 ml 1641 ml Output Total 600 ml 0 ml Balance 659 ml 1641 ml Result Diagram: 03/24/17 1045 03/24/17 0507 Other Results Microbiology Date/Time Procedure Status Source Growth 03/22/17 09:00 Gram Stain - Final Complete Sputum Endotracheal 03/22/17 09:00 Sputum Culture - Final Complete S. Aureus Mrsa S. Aureus Mrsa Isol. 2 Imaging Last Impressions Head CT 03/20/17637 Signed Impressions: Service Date/Time: Monday, March 20, 2017 07:05 - CONCLUSION: 1. Right maxillary sinus mucosal thickening. 2. Remote right frontal infarct. Yehuda Oro MD Chest X-Ray 03/20/17637 Signed Impressions: Service Date/Time: Monday, March 20, 2017 08:06 - CONCLUSION: Left lower lobe consolidation, apparent widening of the superior mediastinal contour which can be further evaluated with CT chest with contrast if felt clinically warranted. Yehuda Oro MD Neck CTA 03/20/17 Signed Impressions: Service Date/Time: Monday, March 20, 2017 07:28 - CONCLUSION: 1. No evidence for hemodynamically significant stenosis of either carotid artery. Yehuda Oro MD Maxillofacial CT 03/20/17 Signed Impressions: Service Date/Time: Monday, March 20, 2017 07:02 - CONCLUSION: 1. There is a fracture the right maxillary sinus wall and right orbital floor which are felt to be nonacute with evidence of previous surgery and periosteal thickening. 2. Small air-fluid level left sphenoid sinus, and moderate circumferential mucosal thickening in the right maxillary sinus. Yehuda Oro MD Head CTA 7/4/17 0000 Signed Impressions: Service Date/Time: Monday, March 20, 2017 07:28 - CONCLUSION: 1. Normal intracranial vasculature. 2. Pulmonary consolidation and effusions are noted. Yehuda Oro MD Cervical Spine CT 03/20/17 0000 Signed Impressions: Service Date/Time: Monday, March 20, 2017 07:06 - CONCLUSION: Degenerative changes are noted without fracture or listhesis. Bilateral upper lobe consolidative opacity. Yehuda Oro MD Objective Remarks GENERAL: Middle-aged male, lying in bed, awake, alert, mild distress due to abdominal pain HEENT: Normocephalic. Atraumatic. Pupils equal, round, reactive, conjugate. Mucous membranes are moist NECK: Trachea is midline. There is no JVD. CHEST: Equal chest rise. unlabored. nc o2. CARDIOVASCULAR: normal Rate, regular rhythm. Sinus by telemetry ABDOMEN: Soft, mildly tender diffusely to palpation. no guarding or rebound. MUSCULOSKELETAL: Pulses 2+. No peripheral edema. NEUROLOGICAL: f c x 4. awake, oriented. RASS 0. 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 Now complicated by worsening generalized abdominal pain. Will order CT abd/pelvis with IV and PO contrast, as well as ask radiology to aspirate ascites for culture and cell count. Unclear if TIPS is chronically or acutely occluded. will also get GIs opinion on abdominal pain and possible TIPS occlusion. Pulmonary and hemodynamic standpoint, clinically continues to improve , and likely stable for transfer from ICU. From an infectious standpoint, never had fever, leukocytosis, increased o2 requirement, increased sputum requirement. will continue Linezolid for MRSA in the sputum (unclear if infected or just colonized without overt signs of infection), and contine Zosyn until we can rule out SBP as a source of abdominal pain. Medically complex patient with multiple problems. Plan by systems: Neurologic: Hepatic encephalopathy- improving. Possible seizure-like activity- resolved. Hyperammonemia- resolving. Goal RASS 0 EEG showed background slowing, no active seizure like events. Trend ammonia levels Continue Lactulose and rifaximin -03/20: CT brain: Right maxillary sinus mucosal thickening. Remote right frontal infarct. - Avoid benzos. Avoid long-acting sedating meds. Respiratory: Acute hypoxic and hypercarbic respiratory failure- resolved Possible MRSA CAP I.s. -- wean o2 by NC for goal spo2 > 90% --abx as below. -- PT consult -- OOB to chair. Cardiovascular: Monitor HR and BP keep MAP>65mmHg -Lactic acid 2.3 on 7/4 from 7.9 Renal: urinary Retention Monitor renal function, I/O's, electrolytes replacement per protocol. -SL ivf. --start Flomax. repeat voiding trial in 48h. FEN/GI: End-stage liver disease Lactic acidosis- resolved. Abdominal pain- unclear etiology Possible Occluded TIPS shunt- unknown if acute or chronic Daily LFTs, BMP advance diet as tolerated. -- lactulose, rifaximin. -- CT abd/pelvis with IV and PO contrast -- IR consult for ascites tap -- GI consult for abdominal pain in the setting of ESLD -- will attempt to rule out SBP Heme Coagulopathy secondary to liver disease Thrombocytopenia secondary to liver disease Pancytopenia Monitor CBC and Coags, check Hemoccult stool\ -- thrombocytopenia may be due to splenomegaly from portal hypertension. will eval on ct abd/pelvis. low 4t score: low probability HIT. ID MRSA sputum, possible CAP rule-out SBP continue empiric Zosyn to cover SBP until cultures are negative. obtain ascitic culture today. continue Linezolid x 7 days for MRSA sputum. Endocrine: Hyperglycemia of critical illness -- SSI, medium scale, every 6 Prophylaxis: GI Prophylaxis Protonix DVT Prophylaxis -- SCDs Holding pharmacologic DVT prophylaxis in the setting of end-stage liver disease with coagulopathy Lines: Peripheral IVs Cruz was replaced due to urinary retention. will trial second attempt in 48h after Flomax started. Palliative care is following. Patient asked to be made full code again. Dispo: safe for transfer out of ICU. will ask hospitalist to assume management when transferred. Alvarez Lemus MD Mar 24, 2017 16:28
[2017-03-24] MEDS ORDERED: IOHEXOL 350 MG/ML 10 ML VIAL (for RAD DIAG) IV ONE (19:45)
--- NOTE | 2017-03-24 20:29 | RADRPT ---
EXAM DATE/TIME: 03/24/2017 19:24 [facility] COMPARISON: US ABDOMEN - LIVER, March 23, 2017, 19:11. CT THORAX W CONTRAST, March 22, 2017, 8:41. INDICATIONS : Evaluate for abdominal pain with elevated ammonia level. Hepatitis. IV CONTRAST: 96 cc Omnipaque 350 (iohexol) IV ORAL CONTRAST: Prescribed oral contrast ingested. RADIATION DOSE: 21.85 CTDIvol (mGy) MEDICAL HISTORY : Seizures. Hepatitis C. SURGICAL HISTORY : None. ENCOUNTER: Initial ACUITY: 1 day PAIN SCALE: 2/10 LOCATION: Bilateral lower quadrant TECHNIQUE: Volumetric scanning of the abdomen and pelvis was performed. Using automated exposure control and ad justment of the mA and/or kV according to patient size, radiation dose was kept as low as reasonably achievable to obtain optimal diagnostic quality images. DICOM format image data is available electro nically for review and comparison. FINDINGS: LOWER LUNGS: There is small bilateral effusions with mild consolidation in the lung bases. LIVER: The liver is small and cirrhotic in appearance with no focal mass. A TIPS catheter is present. There are 2 small calcified gallstones in the gallbladder with no definite wall thickening or inflammatory change. There is a small amount of ascitic fluid. SPLEEN: Moderately enlarged with surrounding ascitic fluid. There is no focal mass. PANCREAS: Within normal limits. KIDNEYS: Normal in size and shape. There is no mass, stone or hydronephrosis. ADRENAL GLANDS: Within normal limits. VASCULAR: There is no aortic aneurysm. BOWEL/MESENTERY: There is a small to moderate amount of ascitic fluid. A rectal catheter is present. There is no free air. ABDOMINAL WALL: Within normal limits. RETROPERITONEUM: There a multiple small reactive appearing lymph nodes. BLADDER: No wall thickening or mass. A Cruz catheter is present. REPRODUCTIVE: Within normal limits. INGUINAL: There is no lymphadenopathy or hernia. MUSCULOSKELETAL: Within normal limits for patient age. CONCLUSION: 1. Cirrhotic appearing liver with TIPS catheter in place. 2. Moderate splenomegaly. 3. Moderate amount of ascitic fluid. 4. Cholelithiasis with 2 small calcified gallstones and no wall thickening or inflammatory change. 5. Small effusions and mild consolidation in the posterior lung bases. Raúl Butts MD on March 24, 2017 at 20:22 Board Certified Radiologist. This report was verified electronically.
[2017-03-24] MEDS: HYDROmorphone HCL PF 1 MG/ML VIAL IV PUSH PRN (21:39)
[2017-03-25] VITALS (12 sets, daily range): BP systolic 115–129; BP diastolic 56–85; PULSE 73–89; RESP 14–20; TEMP 97.9–99.7; O2SAT 87–96
[2017-03-25] MEDS: RESP: ALBUTEROL 2.5 MG/IPRATROPIUM 0.5 MG NEB (SCH) INH ×4 (03:36→21:49)
[2017-03-25] MEDS: CHLORHEXIDINE GLUCONATE 2 % 1 PACK (2 CLOTHS) TOP SCH (04:00)
[2017-03-25] MEDS: LINEZOLID 600 MG PREMIX 300 ML IV SCH ×2 (04:32→17:13)
[2017-03-25] MEDS: PIPERACIL-TAZO 4.5 GM PREMIX 100 ML IV SCH ×4 (04:32→21:47)
[2017-03-25] MEDS: RIFAXIMIN 200 MG TAB PO SCH ×3 (05:25→22:21)
[2017-03-25] MEDS: INSULIN NovoLIN REGULAR SUPPLEMENTAL SCALE SQ SCH ×5 (05:25→23:41)
[2017-03-25] MEDS: CHLORHEXIDINE 0.12% (ORAL KIT) 15 ML CUP MT SCH ×2 (07:15→19:24)
[2017-03-25] MEDS: TAMSULOSIN HCL 0.4 MG CAP PO SCH (08:10)
[2017-03-25] MEDS: LACTULOSE SYRUP 20 GM/30 ML CUP PO SCH ×4 (08:10→21:47)
[2017-03-25] MEDS: FAMOTIDINE 20 MG TAB PO SCH ×2 (08:10→21:47)
[2017-03-25] MEDS: HYDROmorphone HCL PF 1 MG/ML VIAL IV PUSH PRN ×3 (08:18→21:49)
--- NOTE | 2017-03-25 08:29 | HHI.PR ---
Subjective Remarks Bulb Brander Notes: This is a 57-year-old male who is brought in by EMS for altered mental status. According to the EMS report, the patient has a history of end-stage liver disease and was talking to his when he became acutely unresponsive and fell forward onto the ground. EMS attempted intubation was unsuccessful. He was brought in the emergency department where he was successfully intubated. CT CT angiogram head and neck are negative for acute stroke, although he does have evidence of old prior ischemic stroke in the right frontal lobe. Laboratory values are significant for a lactate of 7, and ammonia of 300. White count is normal. Patient does have laboratory evidence of end-stage liver disease including elevated INR, low albumin, thrombocytopenia. In talking with his , she states that he fell to the ground and had rhythmic shaking like movements. She states that he has been evaluated on multiple occasions for liver transplantation and the center that he was evaluated and did not feel that he was a good transplant candidate at this time. Unfortunately patient is unresponsive and intubated and cannot provide additional history. His does state that he has had a prior TIPS procedure and she is unclear whether or not he has ever had hepatic encephalopathy in the past Subjective: 03/21: ammonia downtrending. leukopenic and thrombocytopenic this morning, but may have a component of dilution. more awake today, but not yet following commands. spoke with and she would like a palliative care consult to help clarify her own goals of care regarding his ongoing transplant work-up and what the future of his ESLD might look like. 03/22 Patien tis sedated with Diprivan and intubated. Afebrile. 03/23: seen and examined around 10am today. patient much more awake and alert than yesterday. currently on CPAP SBT. ammonia stable. patient denies complaints and asked for ett to be removed. 03/24: seen and examined around 09:30am. abdominal pain persists. still leukopenic. KUB nonobstructive. liver ultrasound with evidence of no flow through TIPS shunt, patent portal vein, hepatic artery. today the patient's abdominal pain is slightly improved. I evaluated the abdomen with an ultrasound and cannot find a safe bedside pocket of ascites to tap for diagnosis and rule out SBP. will ask radiology to assist with radiologic guided aspiration. from a pulmonary status, improved and on NC o2. from a mental status, patient is almost back to neurologic baseline, only slightly confused at times. I had a conversation with the patient and his about code status and he wants to be made a Full Code (from previous DNR by his ). Hospitalist Notes: 03/25: Seen in his bedroom in the presence of relative, authorized for the patient to remain in his bedroom, discussed with nurse Miss Zepeda continue with Abdominal pain, Seen by GI specialist, Liver US (03/23) --- > No flow through TIPS shunt, but patent portal vein, hepatic artery. CT Abd/pelvis (03/24) ---> revealed cirrhotic appearing liver with TIPS catheter in place, not enough fluid for Paracentesis, has small effusion and mild consolidation in the posterior lung bases, the patient is not a candidate for Liver Transplant, on Lactulose and Rifaximin today is 80 recommended by GI specialist to continue Lactulose, Rifaximin, Zosyn, not available IR for consult for TIPS occlusion, Full liquid diet Objective Vital Signs Date Time Temp Pulse Resp B/P Pulse Ox O2 Delivery O2 Flow Rate FiO2 03/25/17 07:15 73 03/25/17 04:00 80 03/25/17 04:00 99.7 80 14 124/61 94 03/25/17 00:00 98.0 85 17 125/63 91 03/25/17 00:00 85 03/24/17 20:04 96 Nasal Cannula 2.00 03/24/17 20:00 83 03/24/17 20:00 99.0 83 24 127/59 96 03/24/17 16:00 99.0 75 17 125/58 95 03/24/17 16:00 76 03/24/17 12:00 70 03/24/17 12:00 98.8 74 23 121/58 94 03/24/17 10:00 72 I/O 03/24/17 03/24/17 03/24/17 03/25/17 03/25/17 03/25/17 07:00 15:00 23:00 07:00 15:00 23:00 Intake Total 740 ml 1282 ml 822 ml 436 ml Output Total 450 ml 1600 ml 1525 ml 1075 ml Balance 290 ml -318 ml -703 ml -639 ml Intake Oral 500 ml 400 ml 200 ml IV Total 740 ml 782 ml 422 ml 236 ml Output Urine Total 450 ml 1600 ml 525 ml 275 ml Stool Total 1000 ml 800 ml # Bowel Movements 2 3 Result Diagram: 03/24/17 1045 03/24/17 0507 Imaging Last Impressions Abdomen/Pelvis CT 03/24/17 0000 Signed Impressions: Service Date/Time: Friday, March 24, 2017 19:24 - CONCLUSION: 1. Cirrhotic appearing liver with TIPS catheter in place. 2. Moderate splenomegaly. 3. Moderate amount of ascitic fluid. 4. Cholelithiasis with 2 small calcified gallstones and no wall thickening or inflammatory change. 5. Small effusions and mild consolidation in the posterior lung bases. Raúl Butts MD Liver Ultrasound 03/23/17 0000 Signed Impressions: Service Date/Time: Thursday, March 23, 2017 19:11 - CONCLUSION: TIPS shunt does not appear to be patent. Michael Marsh MD FACR Abdomen X-Ray 03/23/17 0000 Signed Impressions: Service Date/Time: Thursday, March 23, 2017 17:24 - CONCLUSION: Minimally dilated air-filled loops of small bowel may reflect very mild adynamic ileus versus developing partial small bowel obstruction. Evangelist Cornell MD Chest CT 03/22/17 0000 Signed Impressions: Service Date/Time: March 08:41 - CONCLUSION: 1. Bilateral lower lobe consolidation may reflect atelectasis or aspiration. 2. Scattered subtle patchy ground glass opacities in the right upper lobe may reflect volume loss although developing infection cannot be excluded. 3. Numerous nonspecific subcentimeter mediastinal nodes which do not meet CT size criteria but may have contributed to widened mediastinum on chest radiograph. Although differential considerations include both benign and malignant etiologies an infectious/inflammatory process is favored. 4. Prominence of the main pulmonary artery in this patient with cirrhosis and TIPS consistent with pulmonary artery hypertension. 5. Trace right pleural effusion and trace ascites in the visualized upper abdomen. Evangelist Cornell MD Head CT 03/20/17 0638 Signed Impressions: Service Date/Time: Monday, March 20, 2017 07:05 - CONCLUSION: 1. Right maxillary sinus mucosal thickening. 2. Remote right frontal infarct. Yehuda Oro MD Chest X-Ray 03/20/17 0638 Signed Impressions: Service Date/Time: Monday, March 20, 2017 08:06 - CONCLUSION: Left lower lobe consolidation, apparent widening of the superior mediastinal contour which can be further evaluated with CT chest with contrast if felt clinically warranted. Yehuda Oro MD Neck CTA 03/20/17 Signed Impressions: Service Date/Time: Monday, March 20, 2017 07:28 - CONCLUSION: 1. No evidence for hemodynamically significant stenosis of either carotid artery. Yehuda Oro MD Maxillofacial CT 03/20/17 Signed Impressions: Service Date/Time: Monday, March 20, 2017 07:02 - CONCLUSION: 1. There is a fracture the right maxillary sinus wall and right orbital floor which are felt to be nonacute with evidence of previous surgery and periosteal thickening. 2. Small air-fluid level left sphenoid sinus, and moderate circumferential mucosal thickening in the right maxillary sinus. Yehuda Oro MD Head CTA 03/20/17 Signed Impressions: Service Date/Time: Monday, March 20, 2017 07:28 - CONCLUSION: 1. Normal intracranial vasculature. 2. Pulmonary consolidation and effusions are noted. Yehuda Oro MD Cervical Spine CT 03/20/17 Signed Impressions: Service Date/Time: Monday, March 20, 2017 07:06 - CONCLUSION: Degenerative changes are noted without fracture or listhesis. Bilateral upper lobe consolidative opacity. Yehuda Oro MD Procedures Endotracheal intubation and Extubation. Other Results Laboratory Tests Test 03/23/17 03/24/17 03/24/17 03/24/17 08:27 05:07 05:58 10:45 Neutrophils (%) (Auto) 72.0 % Lymphocytes (%) (Auto) 12.2 % Monocytes (%) (Auto) 9.6 % Eosinophils (%) (Auto) 5.8 % Basophils (%) (Auto) 0.4 % Neutrophils # (Auto) 1.7 TH/MM3 Lymphocytes # (Auto) 0.3 TH/MM3 Monocytes # (Auto) 0.2 TH/MM3 Eosinophils # (Auto) 0.1 TH/MM3 Basophils # (Auto) 0.0 TH/MM3 CBC Comment AUTO DIFF Differential Comment AUTO DIFF CONFIRMED Platelet Estimate LOW Platelet Morphology Comment NORMAL Ovalocytes 1+ Acanthocytes OCC Protein Corrected Calcium 8.3 MG/DL Phosphorus Level 2.8 MG/DL Magnesium Level 1.7 MG/DL Lipase 138 U/L Sodium Level 145 MEQ/L Potassium Level 3.6 MEQ/L Chloride Level 112 MEQ/L Carbon Dioxide Level 26.6 MEQ/L Anion Gap 6 MEQ/L Blood Urea Nitrogen 6 MG/DL Creatinine 0.62 MG/DL Estimat Glomerular Filtration 133 ML/MIN Rate Random Glucose 130 MG/DL Calcium Level 7.5 MG/DL Total Bilirubin 3.1 MG/DL Direct Bilirubin 1.5 MG/DL Indirect Bilirubin 1.6 MG/DL Aspartate Amino Transf 63 U/L (AST/SGOT) Alanine Aminotransferase 31 U/L (ALT/SGPT) Alkaline Phosphatase 101 U/L Ammonia 85 MCMOL/L Total Protein 5.7 GM/DL Albumin 2.0 GM/DL Prothrombin Time 17.3 SEC Prothromb Time International 1.5 RATIO Ratio Activated Partial 32.9 SEC Thromboplast Time White Blood Count 2.5 TH/MM3 Red Blood Count 2.82 MIL/MM3 Hemoglobin 7.7 GM/DL Hematocrit 24.3 % Mean Corpuscular Volume 86.1 FL Mean Corpuscular Hemoglobin 27.3 PG Mean Corpuscular Hemoglobin 31.7 % Concent Red Cell Distribution Width 17.0 % Platelet Count 31 TH/MM3 Mean Platelet Volume 7.8 FL Hematology Comments Objective Remarks GENERAL: Alert and oriented, no acute distress. HEENT: Normocephalic. Atraumatic. Pupils equal, round, reactive, conjugate. Mucous membranes are moist NECK: Trachea is midline. There is no JVD. CHEST: Decreased breath sounds bilateral, no wheezing or crackles. CARDIOVASCULAR: normal Rate, regular rhythm. Sinus by telemetry ABDOMEN: Soft, mildly tender diffusely to palpation. no guarding or rebound. MUSCULOSKELETAL: Pulses 2+. No peripheral edema. NEUROLOGICAL: Alert and oriented x 3 Medications and IVs Current Medications Medications (Trade) Dose Ordered Sig/Paige Route Start Time Stop Time Status Last Admin (NS Flush) 2 ml UNSCH PRN IV FLUSH 03/20/17 06:45 (Trandate Inj) 20 mg Q15M PRN IV PUSH 03/20/17 07:30 (Apresoline Inj) 10 mg Q30M PRN IV PUSH 03/20/17 07:30 Magnesium Oxide 800 mg 800 mg UNSCH PRN PO 03/20/17 07:30 Magnesium Sulfate 4 gm/Sodium Chloride 100 ml @ 50 mls/hr UNSCH PRN IV 03/20/17 07:30 Magnesium Sulfate 2 gm/Sodium Chloride 100 ml @ 50 mls/hr UNSCH PRN IV 03/20/17 07:30 Potassium Chloride 100 ml @ 50 mls/hr Q2H PRN IV 03/20/17 07:30 Potassium Chloride 100 ml @ 50 mls/hr Q2H PRN IV 03/20/17 07:30 Potassium Chloride 100 ml @ 50 mls/hr Q2H PRN IV 03/20/17 07:30 (KCl 40 Meq Premix Inj) 100 ml @ 25 mls/hr UNSCH PRN IV 03/20/17 07:30 (K-Phos) 2,000 mg Q4H PRN PO 03/20/17 07:30 Potassium Phosphate 2000 mg 2,000 mg UNSCH PRN PO/TUBE 03/20/17 07:30 Potassium Phosphate 30 mmol/ Sodium Chloride 260 ml @ 42 mls/hr UNSCH PRN IV 03/20/17 07:30 (Sodium Phosphate Inj/NS 250 ml Inj) 250 ml @ 42 mls/hr UNSCH PRN IV 03/20/17 07:30 (Peridex 0.12% Liq) 15 ml BID@08,20 MT 03/20/17 08:00 03/23/17 07:28 (D50w (Vial) Inj) 25 ml UNSCH PRN IV PUSH 03/20/17 07:30 (NovoLIN R SUPPLEMENTAL SCALE) 1 Q6HR SQ 03/20/17 12:00 03/24/17 18:00 (Zofran Inj) 4 mg Q6H PRN IV 03/20/17 07:30 Miscellaneous Information 1 Q361D XX 03/20/17 07:30 03/20/17 07:30 (Chlorhexidine 2% Cloth) 3 pack Taper DAILY@04 TOP 03/21/17 04:00 03/17/18 03:59 03/25/17 04:00 (Chlorhexidine 2% Cloth) 3 pack UNSCH PRN TOP 03/20/17 07:30 (Lactulose Liq) 30 ml QID PO 03/20/17 09:00 03/24/17 21:37 (Glucagon Inj) 1 mg UNSCH PRN OTHER 03/20/17 07:45 Rifaximin 400 mg 400 mg Q8HR PO 03/20/17 14:00 03/25/17 05:25 (Zosyn 4.5 Gm Premix) 100 ml @ 200 mls/hr Q6H IV 03/22/17 09:00 03/25/17 08:10 Famotidine 20 mg 20 mg BID PO 03/23/17 21:00 03/25/17 08:10 (Zyvox 600 Mg Premix) 300 ml @ 300 mls/hr Q12H IV 03/23/17 17:00 03/30/17 16:59 03/25/17 04:32 (Dilaudid Pf Inj) 0.5 mg Q4H PRN IV PUSH 03/23/17 17:45 03/24/17 21:39 (Flomax) 0.4 mg DAILY PO 03/24/17 09:00 03/25/17 08:10 A/P Assessment and Plan Assessment: 57yM with 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 Now complicated by worsening generalized abdominal pain. Will order CT abd/pelvis with IV and PO contrast, as well as ask radiology to aspirate ascites for culture and cell count. Unclear if TIPS is chronically or acutely occluded. will also get GIs opinion on abdominal pain and possible TIPS occlusion. Pulmonary and hemodynamic standpoint, clinically continues to improve , and likely stable for transfer from ICU. From an infectious standpoint, never had fever, leukocytosis, increased o2 requirement, increased sputum requirement. will continue Linezolid for MRSA in the sputum (unclear if infected or just colonized without overt signs of infection), and contine Zosyn until we can rule out SBP as a source of abdominal pain. Medically complex patient with multiple problems. 1. Hepatic Encephalopathy Improving Possible Seizure-like activity resolved Hyperammonemia resolving Goal RASS 0 EEG showed background slowing, no active seizure like events. Continue Lactulose and rifaximin -03/20: CT brain: Right maxillary sinus mucosal thickening. Remote right frontal infarct. - Avoid benzos. Avoid long-acting sedating meds. 2. VDRF resolved/Possible MRSA CAP Bronchodilator, Mucolytic, Incentive spirometry, Antibiotics 3. Urinary Retention, Flomax recommended to repeat voiding trial in 24 hours from today 4. End stage Liver disease/Lactic Acidosis resolved, Possible Occluded TIPS shunt unknown if acute or chronic following CMPs, advance diet as tolerated, CT abd/pelvis with IV and PO contrast, IR consult, GI consult no large safe fluid collection to tap, found large splenomegaly, Severe Portal Hypertension evident and splenic capsular pain may be cause, not able to say if TIPS is occluded, 03/25, Seen by GI specialist, Liver US (03/23) ---> No flow through TIPS shunt, but patent portal vein, hepatic artery CT Abd/pelvis (03/24) ---> revealed cirrhotic appearing liver with TIPS catheter in place, not enough fluid for Paracentesis, has small effusion and mild consolidation in the posterior lung bases, the patient is not a candidate for Liver Transplant, on Lactulose and Rifaximin today is 80. recommended by GI specialist to continue Lactulose, Rifaximin, Zosyn, not available IR for consult for TIPS occlusion, Full liquid diet 5. Coagulopathy secondary to liver disease/thrombocytopenia secondary to liver disease/Pancytopenia 6. MRSA sputum, possible CAP and rule out SBP, GI specialist consulted, on Empiric Zosyn to cover for SBP blood cultures negative, follow ascitic culture, continue Linezolid for 7 days for MRSA sputum Prophylaxis: GI Prophylaxis Protonix DVT Prophylaxis -- SCDs Holding pharmacologic DVT prophylaxis in the setting of end-stage liver disease with coagulopathy Lines: Peripheral IVs Cruz was replaced due to urinary retention. will trial second attempt in 48h after Flomax started. Code Status Full Code. Discharge Planning Not yet cleared for discharge. Chano Morrow MD Mar 25, 2017 08:29
[2017-03-25 08:52] LABS: HEMATOCRIT 23.1 % (39.0-51.0); MEAN CELL VOLUME 86.8 FL (80.0-100.0); MEAN CORPUSCULAR HGB CONC 32.3 % (32.0-36.0); PLATELET COUNT 34 TH/MM3 (150-450); RED BLOOD COUNT 2.67 MIL/MM3 (4.50-5.90); RED CELL DISTRIBUTION WIDTH 16.9 % (11.6-17.2); WHITE BLOOD COUNT 2.2 TH/MM3 (4.0-11.0)
[2017-03-25 08:54] LABS: REVIEW FLAG FINAL
[2017-03-25 09:02] LABS: APTT (PATIENT) 32.8 SEC (24.3-30.1); INTERNATIONAL NORMALIZED RATIO 1.5 RATIO; PROTHROMBIN TIME - PATIENT 16.8 SEC (9.8-11.6)
[2017-03-25 09:21] LABS: BICARBONATE 27.9 MEQ/L (21.0-32.0); INDIRECT BILIRUBIN 1.7 MG/DL (0.0-0.8); POTASSIUM 3.4 MEQ/L (3.5-5.1); TOTAL BILIRUBIN ADULT 3.5 MG/DL (0.2-1.0)
[2017-03-25 09:23] LABS: CALCIUM-PROTEIN CORRECTED 8.4 MG/DL (8.5-10.1)
--- NOTE | 2017-03-25 12:46 | PD.CONS ---
HPI History of Present Illness Mr. 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 He and his family were visiting this area from [place] when he became suddenly unresponsive on 03/20/17, had some stiffening and shaking of his arms and legs, and fell to the floor striking his forehead. The patient's had reported previously that he had not been confused or having altered mental status prior to the day of admission. Paramedics found his breathing to be agonal and attempted intubation but was unsuccessful. In the ED pt was successfully intubated. Pt reports that his dose of Lactulose was decreased a few weeks ago to 2-3 doses per day. He states that prior to that he had been taking Lactulose 6 times per day. He follows with a GI physician in [place] where he resides. His labs at admission revealed serum ammonia level of 312, lactic acid 7.9, WBC count 7.4, hemoglobin 9.2, platelets 63,000, TBili 1.6, AST 79, ALT 34, AlkPhos 160. Lactulose and rifaximin were restarted/continued. Pts LFTs have been slowly increasing since admission. Pt was able to be extubated on 03/23/17. Pt had complained of abdominal pain following extubation. He states that he has been having issues with abdominal pain for the last few weeks, all left sided pain which is constant, no changes in the pain with food intake. He had a liver US (03/23) which noted that his no flow through TIPS shunt, but patent portal vein, hepatic artery. CT Abd/pelvis (03/24) revealed cirrhotic appearing liver with TIPS catheter in place, moderate splenomegaly, moderate amount of ascitic fluid , cholelithiasis with 2 small calcified gallstones and no wall thickening or inflammatory change, small effusions and mild consolidation in the posterior lung bases. [facility] attempted bedside US for ascites removal but was unable to find a safe bedside pocket of ascites to tap for diagnosis and rule out SBP. GI was consulted for further evaluation of his abdominal pain. He states that he has been coughing up brown sputum for about the last week. His friend at the bedside states that the patient has been in and out of the hospital for the last several months for various issues which he does not know the specifics of. Pt was reportedly diagnosed with liver disease and hepatitis C about 3 years ago , and has been treated with Harvoni and has had a TIPS procedure. She reports that the patient was assessed at the [facility] in [place] on 3 separate occasions and has reportedly been told that he is not a candidate for transplant. (Brenda Martínez) [facility] Past Medical History End-stage liver disease related to Hepatitis C and hx of alcohol use, currently with MELD score of 14. Evaluated at [facility] but felt to not be a liver transplant candidate Remote hx of alcohol abuse, reportedly none in 25 years Hepatitis C, s/p Harvoni therapy Hepatic encephalopathy Chronic pain syndrome (and possible drug-seeking behavior in the past) Old CVA on CT scan Closed head injury, with abrasion/contusion on forehead Right shoulder fracture September 2016 Past Surgical History TIPS procedure Facial surgery (Brenda Martínez) Coded Allergies: Indomethacin (Verified Allergy, Intermediate, UNKNOWN, 03/20/17) Lorazepam (Verified Allergy, Intermediate, PSYCHOSIS, 03/20/17) Zolpidem (Verified Allergy, Intermediate, PSYCHOSIS, 03/20/17) Shellfish (Verified Allergy, Mild, GOUT, 03/20/17) *MDRO Multi-Drug Resistant Organism (Verified Adverse Reaction, Unknown, ) MRSA PCR + 03/20/17 Medications Xifaxan (Rifaximin) 550 Mg Tab 550 Mg PO Q12HR Propranolol (Propranolol HCl) 10 Mg Tab 10 Mg PO Q12HR Protonix (Pantoprazole Sodium) 40 Mg Tab 40 Mg PO BID Novolog Mix 70-30 FlexPen Inj (Insulin Aspart Protam-Asp 70-30 Inj) 300 Unit/3 Ml Pen 1 Units SQ Furosemide 20 Mg Tab 20 Mg PO DAILY Folic Acid 800 Mcg Tab 800 Mcg PO DAILY Lactinex (Lactobacillus Acidophilus) 1 Chew 1 Tab CHEW DAILY Family History The patient's brother of alcohol liver disease. His mother is living with dementia, and his father at age 45 of an aneurysm. . Social History Remote hx of alcohol abuse, none for the last 25 years Denies any tobacco or illicit drug use (Brenda Martínez) Review of Systems Constitutional: DENIES: Fever, Chills Ears, nose, mouth, throat: DENIES: Vertigo Respiratory: COMPLAINS OF: Cough, Sputum production Cardiovascular: DENIES: Chest pain, Palpitations Gastrointestinal: COMPLAINS OF: Abdominal pain, Diarrhea, DENIES: Black stools , Bloody stools, Nausea, Vomiting, Odynophagia Genitourinary: DENIES: Urinary frequency, Hematuria Musculoskeletal: COMPLAINS OF: Joint pain, DENIES: Back pain, Neck pain Integumentary: DENIES: Rash Immunologic/allergic: DENIES: Urticaria Neurologic: DENIES: Headache, Localized weakness Psychiatric: COMPLAINS OF: Confusion (Brenda Martínez) GI Exam Vitals I&O Vital Signs Date Time Temp Pulse Resp B/P Pulse Ox O2 Delivery O2 Flow Rate FiO2 03/25/17 08:34 95 Nasal Cannula 2.00 03/25/17 08:00 73 03/25/17 08:00 97.9 75 15 124/85 96 03/25/17 07:15 73 03/25/17 04:00 80 03/25/17 04:00 99.7 80 14 124/61 94 03/25/17 00:00 98.0 85 17 125/63 91 03/25/17 00:00 85 03/24/17 20:04 96 Nasal Cannula 2.00 03/24/17 20:00 83 03/24/17 20:00 99.0 83 24 127/59 96 03/24/17 16:00 99.0 75 17 125/58 95 03/24/17 16:00 76 I/O 03/24/17 03/24/17 03/24/17 03/25/17 03/25/17 03/25/17 07:00 15:00 23:00 07:00 15:00 23:00 Intake Total 740 ml 1282 ml 822 ml 436 ml Output Total 450 ml 1600 ml 1525 ml 1075 ml Balance 290 ml -318 ml -703 ml -639 ml Intake Oral 500 ml 400 ml 200 ml IV Total 740 ml 782 ml 422 ml 236 ml Output Urine Total 450 ml 1600 ml 525 ml 275 ml Stool Total 1000 ml 800 ml # Bowel Movements 2 3 Imaging Last Impressions Abdomen/Pelvis CT 03/24/17 0000 Signed Impressions: Service Date/Time: Friday, March 24, 2017 19:24 - CONCLUSION: 1. Cirrhotic appearing liver with TIPS catheter in place. 2. Moderate splenomegaly. 3. Moderate amount of ascitic fluid. 4. Cholelithiasis with 2 small calcified gallstones and no wall thickening or inflammatory change. 5. Small effusions and mild consolidation in the posterior lung bases. Raúl Butts MD Liver Ultrasound 03/23/17 Signed Impressions: Service Date/Time: Thursday, March 23, 2017 19:11 - CONCLUSION: TIPS shunt does not appear to be patent. Michael Marsh MD FACR Abdomen X-Ray 03/23/17 Signed Impressions: Service Date/Time: Thursday, March 23, 2017 17:24 - CONCLUSION: Minimally dilated air-filled loops of small bowel may reflect very mild adynamic ileus versus developing partial small bowel obstruction. Evangelist Cornell MD Chest CT 03/22/17 Signed Impressions: Service Date/Time: March 08:41 - CONCLUSION: 1. Bilateral lower lobe consolidation may reflect atelectasis or aspiration. 2. Scattered subtle patchy ground glass opacities in the right upper lobe may reflect volume loss although developing infection cannot be excluded. 3. Numerous nonspecific subcentimeter mediastinal nodes which do not meet CT size criteria but may have contributed to widened mediastinum on chest radiograph. Although differential considerations include both benign and malignant etiologies an infectious/inflammatory process is favored. 4. Prominence of the main pulmonary artery in this patient with cirrhosis and TIPS consistent with pulmonary artery hypertension. 5. Trace right pleural effusion and trace ascites in the visualized upper abdomen. Evangelist Cornell MD Head CT 03/20/1738 Signed Impressions: Service Date/Time: Monday, March 20, 2017 07:05 - CONCLUSION: 1. Right maxillary sinus mucosal thickening. 2. Remote right frontal infarct. Yehuda Oro MD Chest X-Ray 03/20/17637 Signed Impressions: Service Date/Time: Monday, March 20, 2017 08:06 - CONCLUSION: Left lower lobe consolidation, apparent widening of the superior mediastinal contour which can be further evaluated with CT chest with contrast if felt clinically warranted. Yehuda Oro MD Neck CTA 03/20/17 Signed Impressions: Service Date/Time: Monday, March 20, 2017 07:28 - CONCLUSION: 1. No evidence for hemodynamically significant stenosis of either carotid artery. Yehuda Oro MD Maxillofacial CT 03/20/17 Signed Impressions: Service Date/Time: Monday, March 20, 2017 07:02 - CONCLUSION: 1. There is a fracture the right maxillary sinus wall and right orbital floor which are felt to be nonacute with evidence of previous surgery and periosteal thickening. 2. Small air-fluid level left sphenoid sinus, and moderate circumferential mucosal thickening in the right maxillary sinus. Yehuda Oro MD Head CTA 03/20/17 Signed Impressions: Service Date/Time: Monday, March 20, 2017 07:28 - CONCLUSION: 1. Normal intracranial vasculature. 2. Pulmonary consolidation and effusions are noted. Yehuda Oro MD Cervical Spine CT 03/20/17 Signed Impressions: Service Date/Time: Monday, March 20, 2017 07:06 - CONCLUSION: Degenerative changes are noted without fracture or listhesis. Bilateral upper lobe consolidative opacity. Yehuda Oro MD Laboratory Test 03/25/17 08:37 White Blood Count 2.2 TH/MM3 Red Blood Count 2.67 MIL/MM3 Hemoglobin 7.5 GM/DL Hematocrit 23.1 % Mean Corpuscular Volume 86.8 FL Mean Corpuscular Hemoglobin 28.0 PG Mean Corpuscular Hemoglobin 32.3 % Concent Red Cell Distribution Width 16.9 % Platelet Count 34 TH/MM3 Mean Platelet Volume 7.7 FL Prothrombin Time 16.8 SEC Prothromb Time International 1.5 RATIO Ratio Activated Partial 32.8 SEC Thromboplast Time Sodium Level 140 MEQ/L Potassium Level 3.4 MEQ/L Chloride Level 107 MEQ/L Carbon Dioxide Level 27.9 MEQ/L Anion Gap 5 MEQ/L Blood Urea Nitrogen 6 MG/DL Creatinine 0.58 MG/DL Estimat Glomerular Filtration 143 ML/MIN Rate Random Glucose 130 MG/DL Calcium Level 7.4 MG/DL Protein Corrected Calcium 8.4 MG/DL Total Bilirubin 3.5 MG/DL Direct Bilirubin 1.8 MG/DL Indirect Bilirubin 1.7 MG/DL Aspartate Amino Transf 63 U/L (AST/SGOT) Alanine Aminotransferase 28 U/L (ALT/SGPT) Alkaline Phosphatase 89 U/L Ammonia 80 MCMOL/L Total Protein 5.3 GM/DL Albumin 2.0 GM/DL Date/Time Procedure Status Source Growth 03/22/17 09:00 Gram Stain - Final Complete Sputum Endotracheal 03/22/17 09:00 Sputum Culture - Final Complete S. Aureus Mrsa S. Aureus Mrsa Isol. 2 Physical Examination HEENT: Pupils round and reactive to light; normocephalic; atraumatic. Throat is clear. NECK: Neck is supple, no JVD, no lymphadenopathy. CHEST: CTA CARDIAC: Regular ABDOMEN: +BS, soft, mildly distended, left sided tenderness EXTREMITIES: Generalized edema. SKIN: Jaundice. 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 (Brenda Martínez) Assessment and Plan Plan ASSESSMENT: - Abdominal pain, pt had complained of abdominal pain following extubation. He states that he has been having issues with abdominal pain for the last few weeks , all left sided pain which is constant, no changes in the pain with food intake. Liver US (03/23) ---> No flow through TIPS shunt, but patent portal vein, hepatic artery. CT Abd/pelvis (03/24) ---> revealed cirrhotic appearing liver with TIPS catheter in place, moderate splenomegaly, moderate amount of ascitic fluid, cholelithiasis with 2 small calcified gallstones and no wall thickening or inflammatory change, small effusions and mild consolidation in the posterior lung bases. [facility] attempted bedside US for ascites removal but was unable to find a safe bedside pocket of ascites to tap for diagnosis and rule out SBP. GI was consulted for further evaluation of his abdominal pain. Splenic capsular pain is a possible cause of his abdominal pain. Pt is on empiric Zosyn to cover for possible SBP. 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 Labs at admission TBili 1.6, AST 79, ALT 34, AlkPhos 160. Pts LFTs have been slowly increasing since admission. Today's labs with TBili 3.5, DBili 1.8, IBili 1.7, AST 63, ALT 28, AlkPhos 89. No reported alcohol use in many years. Patient was reportedly assessed at the [facility] in [place] on 3 separate occasions and has reportedly been told that he is not a candidate for transplant. - Hepatitis C. Pt was reportedly diagnosed with liver disease and hepatitis C about 3 years ago, and has been treated with Harvoni earlier this year which was reportedly curative. - Hepatic Encephalopathy. Pt reports that his dose of Lactulose was decreased a few weeks ago to 2-3 doses per day. He states that prior to that he had been taking Lactulose 6 times per day. He follows with a GI physician in [place] where he resides. His labs at admission revealed serum ammonia level of 312. Lactulose and rifaximin were restarted/continued. Repeat today is 80. - Coagulopathy, likely secondary to ESLD. - Possible Seizure-like activity prior to admission. EEG showed background slowing, no active seizure like events. - VDRF/MRSA CAP. Pt states that he has been coughing up brown sputum for about the last week. Pt is on Linezolid for 7 days for MRSA in the sputum. management per attending. PLAN: - Cont. Zosyn for possible SBP - Cont. Xifaxin 550mg po BID - Cont. Lactulose 30mL QID - Monitor CBC, CMP, PT/INR, Ammonia level - IR not available for consult today regarding TIPS occlusion, will discuss with them tomorrow. - Full liquid diet as tolerated - Supportive care - Further recommendations as the case develops - The pt was seen and examined by myself and Dr. Peterson, this note was written on her behalf. (Brenda Martínez) Physician Comments seen, examined agree with above (Terra Peterson MD) Brenda Martínez Mar 25, 2017 12:45 Terra Peterson MD Mar 25, 2017 15:01
[2017-03-26] VITALS (9 sets, daily range): BP systolic 129–136; BP diastolic 60–68; PULSE 80–92; RESP 20–21; TEMP 98.4–98.9; O2SAT 92–98
[2017-03-26] MEDS: CHLORHEXIDINE GLUCONATE 2 % 1 PACK (2 CLOTHS) TOP SCH (03:29)
[2017-03-26] MEDS: PIPERACIL-TAZO 4.5 GM PREMIX 100 ML IV SCH ×4 (03:32→23:11)
[2017-03-26] MEDS: RESP: ALBUTEROL 2.5 MG/IPRATROPIUM 0.5 MG NEB (SCH) INH ×4 (03:48→20:34)
[2017-03-26] MEDS: LINEZOLID 600 MG PREMIX 300 ML IV SCH ×2 (05:13→19:29)
[2017-03-26] MEDS: RIFAXIMIN 200 MG TAB PO SCH ×3 (05:13→23:10)
[2017-03-26] MEDS: INSULIN NovoLIN REGULAR SUPPLEMENTAL SCALE SQ SCH ×3 (05:16→18:00)
[2017-03-26] MEDS: HYDROmorphone HCL PF 1 MG/ML VIAL IV PUSH PRN ×2 (05:17→09:53)
[2017-03-26] MEDS: CHLORHEXIDINE 0.12% (ORAL KIT) 15 ML CUP MT SCH ×2 (08:00→23:11)
[2017-03-26] MEDS: TAMSULOSIN HCL 0.4 MG CAP PO SCH (08:55)
[2017-03-26] MEDS: LACTULOSE SYRUP 20 GM/30 ML CUP PO SCH ×4 (08:56→23:11)
[2017-03-26] MEDS: FAMOTIDINE 20 MG TAB PO SCH ×2 (08:56→23:10)
[2017-03-26 10:11] LABS: HEMATOCRIT 24.2 % (39.0-51.0); MEAN CELL VOLUME 87.3 FL (80.0-100.0); MEAN CORPUSCULAR HEMOGLOBIN 28.4 PG (27.0-34.0); MEAN CORPUSCULAR HGB CONC 32.5 % (32.0-36.0); PLATELET COUNT 35 TH/MM3 (150-450); RED BLOOD COUNT 2.78 MIL/MM3 (4.50-5.90); RED CELL DISTRIBUTION WIDTH 17.3 % (11.6-17.2); WHITE BLOOD COUNT 4.1 TH/MM3 (4.0-11.0)
[2017-03-26 10:19] LABS: BICARBONATE 29.8 MEQ/L (21.0-32.0); POTASSIUM 3.6 MEQ/L (3.5-5.1)
[2017-03-26 10:22] LABS: REVIEW FLAG FINAL; TOTAL BILIRUBIN ADULT 4.1 MG/DL (0.2-1.0)
[2017-03-26 10:37] LABS: INTERNATIONAL NORMALIZED RATIO 1.5 RATIO; PROTHROMBIN TIME - PATIENT 17.4 SEC (9.8-11.6)
--- NOTE | 2017-03-26 10:57 | HHI.PR ---
Subjective Remarks Investigations Director Notes: This is a 57-year-old male who is brought in by EMS for altered mental status. According to the EMS report, the patient has a history of end-stage liver disease and was talking to his when he became acutely unresponsive and fell forward onto the ground. EMS attempted intubation was unsuccessful. He was brought in the emergency department where he was successfully intubated. CT CT angiogram head and neck are negative for acute stroke, although he does have evidence of old prior ischemic stroke in the right frontal lobe. Laboratory values are significant for a lactate of 7, and ammonia of 300. White count is normal. Patient does have laboratory evidence of end-stage liver disease including elevated INR, low albumin, thrombocytopenia. In talking with his , she states that he fell to the ground and had rhythmic shaking like movements. She states that he has been evaluated on multiple occasions for liver transplantation and the center that he was evaluated and did not feel that he was a good transplant candidate at this time. Unfortunately patient is unresponsive and intubated and cannot provide additional history. His does state that he has had a prior TIPS procedure and she is unclear whether or not he has ever had hepatic encephalopathy in the past Subjective: 03/21: ammonia downtrending. leukopenic and thrombocytopenic this morning, but may have a component of dilution. more awake today, but not yet following commands. spoke with and she would like a palliative care consult to help clarify her own goals of care regarding his ongoing transplant work-up and what the future of his ESLD might look like. 03/22 Patien tis sedated with Diprivan and intubated. Afebrile. 03/23: seen and examined around 10am today. patient much more awake and alert than yesterday. currently on CPAP SBT. ammonia stable. patient denies complaints and asked for ett to be removed. 03/24: seen and examined around 09:30am. abdominal pain persists. still leukopenic. KUB nonobstructive. liver ultrasound with evidence of no flow through TIPS shunt, patent portal vein, hepatic artery. today the patient's abdominal pain is slightly improved. I evaluated the abdomen with an ultrasound and cannot find a safe bedside pocket of ascites to tap for diagnosis and rule out SBP. will ask radiology to assist with radiologic guided aspiration. from a pulmonary status, improved and on NC o2. from a mental status, patient is almost back to neurologic baseline, only slightly confused at times. I had a conversation with the patient and his about code status and he wants to be made a Full Code (from previous DNR by his ). Hospitalist Notes: 03/25: Seen in his bedroom in the presence of relative, authorized for the patient to remain in his bedroom, discussed with nurse Miss Zepeda continue with Abdominal pain, Seen by GI specialist, Liver US (03/23) --- > No flow through TIPS shunt, but patent portal vein, hepatic artery. CT Abd/pelvis (03/24) ---> revealed cirrhotic appearing liver with TIPS catheter in place, not enough fluid for Paracentesis, has small effusion and mild consolidation in the posterior lung bases, the patient is not a candidate for Liver Transplant, on Lactulose and Rifaximin today is 80 recommended by GI specialist to continue Lactulose, Rifaximin, Zosyn, not available IR for consult for TIPS occlusion, Full liquid diet 03/26: Posterior Vitreous detachment recommended to follow his Primary Ophthalmology specialist on discharge, at this time in his bedroom no nausea, vomit or diarrhea, abdominal pain continue, as per GI recommended to continue Zosyn, Xifaxin, lactulose and follow laboratory. Objective Vital Signs Date Time Temp Pulse Resp B/P Pulse Ox O2 Delivery O2 Flow Rate FiO2 03/26/17 08:00 98.6 80 20 131/61 93 03/26/17 04:46 98.4 80 21 129/62 94 03/26/17 03:50 93 Nasal Cannula 2.00 03/25/17 23:58 99.4 89 20 129/65 92 03/25/17 21:57 94 Nasal Cannula 2.00 03/25/17 20:33 98.0 81 20 115/57 94 03/25/17 17:40 94 03/25/17 17:22 98.4 76 18 122/61 87 03/25/17 17:15 98.4 76 18 122/61 87 03/25/17 12:00 78 03/25/17 12:00 98.8 77 14 119/56 94 I/O 03/25/17 03/25/17 03/25/17 03/26/17 03/26/17 03/26/17 07:00 15:00 23:00 07:00 15:00 23:00 Intake Total 436 ml 500 ml 100 ml 115 ml Output Total 1075 ml 350 ml 600 ml Balance -639 ml 150 ml 100 ml -485 ml Intake Oral 200 ml 400 ml IV Total 236 ml 100 ml 100 ml 115 ml Output Urine Total 275 ml 250 ml 600 ml Stool Total 800 ml 100 ml # Bowel Movements 2 Result Diagram: 03/26/17 0945 03/26/17 0945 Imaging Last Impressions Abdomen/Pelvis CT 03/24/17 0000 Signed Impressions: Service Date/Time: Friday, March 24, 2017 19:24 - CONCLUSION: 1. Cirrhotic appearing liver with TIPS catheter in place. 2. Moderate splenomegaly. 3. Moderate amount of ascitic fluid. 4. Cholelithiasis with 2 small calcified gallstones and no wall thickening or inflammatory change. 5. Small effusions and mild consolidation in the posterior lung bases. Raúl Butts MD Liver Ultrasound 03/23/17 0000 Signed Impressions: Service Date/Time: Thursday, March 23, 2017 19:11 - CONCLUSION: TIPS shunt does not appear to be patent. Michael Marsh MD FACR Abdomen X-Ray 03/23/17 0000 Signed Impressions: Service Date/Time: Thursday, March 23, 2017 17:24 - CONCLUSION: Minimally dilated air-filled loops of small bowel may reflect very mild adynamic ileus versus developing partial small bowel obstruction. Evangelist Cornell MD Chest CT 03/22/17 0000 Signed Impressions: Service Date/Time: March 08:41 - CONCLUSION: 1. Bilateral lower lobe consolidation may reflect atelectasis or aspiration. 2. Scattered subtle patchy ground glass opacities in the right upper lobe may reflect volume loss although developing infection cannot be excluded. 3. Numerous nonspecific subcentimeter mediastinal nodes which do not meet CT size criteria but may have contributed to widened mediastinum on chest radiograph. Although differential considerations include both benign and malignant etiologies an infectious/inflammatory process is favored. 4. Prominence of the main pulmonary artery in this patient with cirrhosis and TIPS consistent with pulmonary artery hypertension. 5. Trace right pleural effusion and trace ascites in the visualized upper abdomen. Evangelist Cornell MD Head CT 03/20/17 0638 Signed Impressions: Service Date/Time: Monday, March 20, 2017 07:05 - CONCLUSION: 1. Right maxillary sinus mucosal thickening. 2. Remote right frontal infarct. Yehuda Oro MD Chest X-Ray 03/20/17 0638 Signed Impressions: Service Date/Time: Monday, March 20, 2017 08:06 - CONCLUSION: Left lower lobe consolidation, apparent widening of the superior mediastinal contour which can be further evaluated with CT chest with contrast if felt clinically warranted. Yehuda Oro MD Neck CTA 03/20/17 0000 Signed Impressions: Service Date/Time: Monday, March 20, 2017 07:28 - CONCLUSION: 1. No evidence for hemodynamically significant stenosis of either carotid artery. Yehuda Oro MD Maxillofacial CT 03/20/17 0000 Signed Impressions: Service Date/Time: Monday, March 20, 2017 07:02 - CONCLUSION: 1. There is a fracture the right maxillary sinus wall and right orbital floor which are felt to be nonacute with evidence of previous surgery and periosteal thickening. 2. Small air-fluid level left sphenoid sinus, and moderate circumferential mucosal thickening in the right maxillary sinus. Yehuda rOo MD Head CTA 03/20/17 0000 Signed Impressions: Service Date/Time: Monday, March 20, 2017 07:28 - CONCLUSION: 1. Normal intracranial vasculature. 2. Pulmonary consolidation and effusions are noted. Yehuda Oro MD Cervical Spine CT 03/20/17 0000 Signed Impressions: Service Date/Time: Monday, March 20, 2017 07:06 - CONCLUSION: Degenerative changes are noted without fracture or listhesis. Bilateral upper lobe consolidative opacity. Yehuda Oro MD Procedures Endotracheal intubation and Extubation. Other Results Laboratory Tests Test 03/23/17 03/24/17 03/25/17 03/26/17 08:27 10:45 08:37 09:45 Neutrophils (%) (Auto) 72.0 % Lymphocytes (%) (Auto) 12.2 % Monocytes (%) (Auto) 9.6 % Eosinophils (%) (Auto) 5.8 % Basophils (%) (Auto) 0.4 % Neutrophils # (Auto) 1.7 TH/MM3 Lymphocytes # (Auto) 0.3 TH/MM3 Monocytes # (Auto) 0.2 TH/MM3 Eosinophils # (Auto) 0.1 TH/MM3 Basophils # (Auto) 0.0 TH/MM3 CBC Comment AUTO DIFF Differential Comment AUTO DIFF CONFIRMED Platelet Estimate LOW Platelet Morphology Comment NORMAL Ovalocytes 1+ Acanthocytes OCC Phosphorus Level 2.8 MG/DL Magnesium Level 1.7 MG/DL Lipase 138 U/L Hematology Comments Protein Corrected Calcium 8.4 MG/DL White Blood Count 4.1 TH/MM3 Red Blood Count 2.78 MIL/MM3 Hemoglobin 7.9 GM/DL Hematocrit 24.2 % Mean Corpuscular Volume 87.3 FL Mean Corpuscular Hemoglobin 28.4 PG Mean Corpuscular Hemoglobin 32.5 % Concent Red Cell Distribution Width 17.3 % Platelet Count 35 TH/MM3 Mean Platelet Volume 8.0 FL Prothrombin Time 17.4 SEC Prothromb Time International 1.5 RATIO Ratio Activated Partial 37.0 SEC Thromboplast Time Sodium Level 142 MEQ/L Potassium Level 3.6 MEQ/L Chloride Level 107 MEQ/L Carbon Dioxide Level 29.8 MEQ/L Anion Gap 5 MEQ/L Blood Urea Nitrogen 6 MG/DL Creatinine 0.69 MG/DL Estimat Glomerular Filtration 117 ML/MIN Rate Random Glucose 148 MG/DL Calcium Level 7.6 MG/DL Total Bilirubin 4.1 MG/DL Direct Bilirubin 2.1 MG/DL Indirect Bilirubin 2.0 MG/DL Aspartate Amino Transf 56 U/L (AST/SGOT) Alanine Aminotransferase 27 U/L (ALT/SGPT) Alkaline Phosphatase 83 U/L Ammonia 108 MCMOL/L Total Protein 5.8 GM/DL Albumin 2.1 GM/DL Objective Remarks GENERAL: Alert and oriented, no acute distress. HEENT: Normocephalic. Atraumatic. Pupils equal, round, reactive, conjugate. Mucous membranes are moist NECK: Trachea is midline. There is no JVD. CHEST: Decreased breath sounds bilateral, no wheezing or crackles. CARDIOVASCULAR: normal Rate, regular rhythm. Sinus by telemetry ABDOMEN: Soft, mildly tender diffusely to palpation. no guarding or rebound. MUSCULOSKELETAL: Pulses 2+. No peripheral edema. NEUROLOGICAL: Alert and oriented x 3 Medications and IVs Current Medications Medications (Trade) Dose Ordered Sig/Paige Route Start Time Stop Time Status Last Admin (NS Flush) 2 ml UNSCH PRN IV FLUSH 03/20/17 06:45 (Trandate Inj) 20 mg Q15M PRN IV PUSH 03/20/17 07:30 (Apresoline Inj) 10 mg Q30M PRN IV PUSH 03/20/17 07:30 (Peridex 0.12% Liq) 15 ml BID@08,20 MT 03/20/17 08:00 03/25/17 19:24 (D50w (Vial) Inj) 25 ml UNSCH PRN IV PUSH 03/20/17 07:30 (NovoLIN R SUPPLEMENTAL SCALE) 1 Q6HR SQ 03/20/17 12:00 03/26/17 05:16 (Zofran Inj) 4 mg Q6H PRN IV 03/20/17 07:30 Miscellaneous Information 1 Q361D XX 03/20/17 07:30 03/20/17 07:30 (Chlorhexidine 2% Cloth) Taper DAILY@04 TOP 03/21/17 04:00 03/17/18 03:59 03/26/17 03:29 (Chlorhexidine 2% Cloth) 3 pack UNSCH PRN TOP 03/20/17 07:30 (Lactulose Liq) 30 ml QID PO 03/20/17 09:00 03/26/17 08:56 (Glucagon Inj) 1 mg UNSCH PRN OTHER 03/20/17 07:45 Rifaximin 400 mg 400 mg Q8HR PO 03/20/17 14:00 03/26/17 05:13 (Zosyn 4.5 Gm Premix) 100 ml @ 200 mls/hr Q6H IV 03/22/17 09:00 03/26/17 08:55 Famotidine 20 mg 20 mg BID PO 03/23/17 21:00 03/26/17 08:56 (Zyvox 600 Mg Premix) 300 ml @ 300 mls/hr Q12H IV 03/23/17 17:00 03/30/17 16:59 03/26/17 05:13 (Dilaudid Pf Inj) 0.5 mg Q4H PRN IV PUSH 03/23/17 17:45 03/26/17 09:53 (Flomax) 0.4 mg DAILY PO 03/24/17 09:00 03/26/17 08:55 A/P Assessment and Plan Assessment: 57yM with 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 Now complicated by worsening generalized abdominal pain. Will order CT abd/pelvis with IV and PO contrast, as well as ask radiology to aspirate ascites for culture and cell count. Unclear if TIPS is chronically or acutely occluded. will also get GIs opinion on abdominal pain and possible TIPS occlusion. Pulmonary and hemodynamic standpoint, clinically continues to improve , and likely stable for transfer from ICU. From an infectious standpoint, never had fever, leukocytosis, increased o2 requirement, increased sputum requirement. will continue Linezolid for MRSA in the sputum (unclear if infected or just colonized without overt signs of infection), and contine Zosyn until we can rule out SBP as a source of abdominal pain. Medically complex patient with multiple problems. 1. Hepatic Encephalopathy Improving Possible Seizure-like activity resolved Hyperammonemia resolving Goal RASS 0 EEG showed background slowing, no active seizure like events. Continue Lactulose and rifaximin -03/20: CT brain: Right maxillary sinus mucosal thickening. Remote right frontal infarct. - Avoid benzos. Avoid long-acting sedating meds. 2. VDRF resolved/Possible MRSA CAP Bronchodilator, Mucolytic, Incentive spirometry, Antibiotics 3. Urinary Retention, Flomax recommended to repeat voiding trial today or in am tomorrow. 4. End stage Liver disease/Lactic Acidosis resolved, Possible Occluded TIPS shunt unknown if acute or chronic following CMPs, advance diet as tolerated, CT abd/pelvis with IV and PO contrast, IR consult, GI consult no large safe fluid collection to tap, found large splenomegaly, Severe Portal Hypertension evident and splenic capsular pain may be cause, not able to say if TIPS is occluded, 03/25, Seen by GI specialist, Liver US (03/23) ---> No flow through TIPS shunt, but patent portal vein, hepatic artery CT Abd/pelvis (03/24) ---> revealed cirrhotic appearing liver with TIPS catheter in place, not enough fluid for Paracentesis, has small effusion and mild consolidation in the posterior lung bases, the patient is not a candidate for Liver Transplant, on Lactulose and Rifaximin today is 80. recommended by GI specialist to continue Lactulose, Rifaximin, Zosyn, consulted IR for TIPS evaluation. , Full liquid diet 5. Coagulopathy secondary to liver disease/thrombocytopenia secondary to liver disease/Pancytopenia 6. MRSA sputum, possible CAP and rule out SBP, GI specialist consulted, on Empiric Zosyn to cover for SBP blood cultures negative, follow ascitic culture, continue Linezolid for 7 days for MRSA sputum Prophylaxis: GI Prophylaxis Protonix DVT Prophylaxis -- SCD[employer] Holding pharmacologic DVT prophylaxis in the setting of end-stage liver disease with coagulopathy Lines: Peripheral IVs Cruz was replaced due to urinary retention. will trial second attempt in 48h after Flomax started. Code Status Full Code. Discharge Planning Not yet cleared for discharge. Chano Morrow MD Mar 26, 2017 10:57
--- NOTE | 2017-03-26 13:32 | PD.CONS ---
History of Present Illness Service Ophthalmology Consult Requested By Reason for Consult floaters Primary Care Physician Non-Staff Diagnoses: History of Present Illness 57 yo M presenting with altered mental status. Patient has a history of end- stage liver disease and developed hepatic encephalopathy. C/o worsening floaters in both eyes for the last few days. He has a history of floaters that started 6 months ago. Has seen an bobbin dumper twice for this (can't remember the name). No history of retinal tears or detachment. Ocular history significant for an unknown injury to the left eye in an accident - pt does not remember what the injury was or what type of surgery was done to his left eye. Past Family Social History Allergies: Coded Allergies: Indomethacin (Verified Allergy, Intermediate, UNKNOWN, 03/20/17) Lorazepam (Verified Allergy, Intermediate, PSYCHOSIS, 03/20/17) Zolpidem (Verified Allergy, Intermediate, PSYCHOSIS, 03/20/17) Shellfish (Verified Allergy, Mild, GOUT, 03/20/17) *MDRO Multi-Drug Resistant Organism (Verified Adverse Reaction, Unknown, ) MRSA PCR + 03/20/17 MRSA (Sputum) 03/22/17 Physical Exam Vital Signs Vital Signs Date Time Temp Pulse Resp B/P Pulse Ox O2 Delivery O2 Flow Rate FiO2 03/26/17 12:01 98.7 87 20 136/62 98 03/26/17 11:06 92 Nasal Cannula 2.00 03/26/17 08:00 98.6 80 20 131/61 93 03/26/17 04:46 98.4 80 21 129/62 94 03/26/17 03:50 93 Nasal Cannula 2.00 03/25/17 23:58 99.4 89 20 129/65 92 03/25/17 21:57 94 Nasal Cannula 2.00 03/25/17 20:33 98.0 81 20 115/57 94 03/25/17 17:40 94 03/25/17 17:22 98.4 76 18 122/61 87 03/25/17 17:15 98.4 76 18 122/61 87 Physical Exam Va cc at near OD 20/60, OS 20/200 EOM full OU, no diplopia CVF full OU Pupils 2-1 no APD OU IOP normal to palpation OU Anterior exam OD - normal eyelid, C/S W&Q, K clear, AC deep, pupil round, lens clear OS - normal eyelid, C/S W&Q, K clear, AC deep, pupil round, lens clear Dilated exam OD - ON s/p/f, ves normal, PVD, retina flat OS - ON s/p/f, ves normal, PVD, retina flat Laboratory Laboratory Tests Test 03/26/17 09:45 White Blood Count 4.1 Red Blood Count 2.78 Hemoglobin 7.9 Hematocrit 24.2 Mean Corpuscular Volume 87.3 Mean Corpuscular Hemoglobin 28.4 Mean Corpuscular Hemoglobin 32.5 Concent Red Cell Distribution Width 17.3 Platelet Count 35 Mean Platelet Volume 8.0 Prothrombin Time 17.4 Prothromb Time International 1.5 Ratio Activated Partial 37.0 Thromboplast Time Sodium Level 142 Potassium Level 3.6 Chloride Level 107 Carbon Dioxide Level 29.8 Anion Gap 5 Blood Urea Nitrogen 6 Creatinine 0.69 Estimat Glomerular Filtration 117 Rate Random Glucose 148 Calcium Level 7.6 Total Bilirubin 4.1 Direct Bilirubin 2.1 Indirect Bilirubin 2.0 Aspartate Amino Transf 56 (AST/SGOT) Alanine Aminotransferase 27 (ALT/SGPT) Alkaline Phosphatase 83 Ammonia 108 Total Protein 5.8 Albumin 2.1 Date/Time Procedure Status Source Growth 03/22/17 09:00 Gram Stain - Final Complete Sputum Endotracheal 03/22/17 09:00 Sputum Culture - Final Complete S. Aureus Mrsa S. Aureus Mrsa Isol. 2 Result Diagram: 03/26/1794403/26/17944 Assessment and Plan Problem List: (1) PVD (posterior vitreous detachment), both eyes Status: Acute Plan: No retinal tear or detachment seen on exam. Recommend followup with his bobbin dumper once discharged. Anna Muse MD Mar 26, 2017 13:32
--- NOTE | 2017-03-26 15:12 | HHI.GIFU ---
Subjective Remarks Pt reports abdominal pain in LUQ, pain in tailbone, pain in arms. He wants to have his TIPSS reopened because he did have GI bleeding before. IR consult is submitted and active. Objective Vitals I&O Vital Signs Date Time Temp Pulse Resp B/P Pulse Ox O2 Delivery O2 Flow Rate FiO2 03/26/17 12:01 98.7 87 20 136/62 98 03/26/17 11:06 92 Nasal Cannula 2.00 03/26/17 08:00 98.6 80 20 131/61 93 03/26/17 04:46 98.4 80 21 129/62 94 03/26/17 03:50 93 Nasal Cannula 2.00 03/25/17 23:58 99.4 89 20 129/65 92 03/25/17 21:57 94 Nasal Cannula 2.00 03/25/17 20:33 98.0 81 20 115/57 94 03/25/17 17:40 94 03/25/17 17:22 98.4 76 18 122/61 87 03/25/17 17:15 98.4 76 18 122/61 87 I/O 03/25/17 03/25/17 03/25/17 03/26/17 03/26/17 03/26/17 07:00 15:00 23:00 07:00 15:00 23:00 Intake Total 436 ml 500 ml 100 ml 115 ml 528 ml Output Total 1075 ml 350 ml 600 ml Balance -639 ml 150 ml 100 ml -485 ml 528 ml Intake Oral 200 ml 400 ml IV Total 236 ml 100 ml 100 ml 115 ml 528 ml Output Urine Total 275 ml 250 ml 600 ml Stool Total 800 ml 100 ml # Bowel Movements 2 Laboratory Laboratory Tests Test 03/26/17 09:45 White Blood Count 4.1 Red Blood Count 2.78 Hemoglobin 7.9 Hematocrit 24.2 Mean Corpuscular Volume 87.3 Mean Corpuscular Hemoglobin 28.4 Mean Corpuscular Hemoglobin 32.5 Concent Red Cell Distribution Width 17.3 Platelet Count 35 Mean Platelet Volume 8.0 Prothrombin Time 17.4 Prothromb Time International 1.5 Ratio Activated Partial 37.0 Thromboplast Time Sodium Level 142 Potassium Level 3.6 Chloride Level 107 Carbon Dioxide Level 29.8 Anion Gap 5 Blood Urea Nitrogen 6 Creatinine 0.69 Estimat Glomerular Filtration 117 Rate Random Glucose 148 Calcium Level 7.6 Total Bilirubin 4.1 Direct Bilirubin 2.1 Indirect Bilirubin 2.0 Aspartate Amino Transf 56 (AST/SGOT) Alanine Aminotransferase 27 (ALT/SGPT) Alkaline Phosphatase 83 Ammonia 108 Total Protein 5.8 Albumin 2.1 Date/Time Procedure Status Source Growth 03/22/17 09:00 Gram Stain - Final Complete Sputum Endotracheal 03/22/17 09:00 Sputum Culture - Final Complete S. Aureus Mrsa S. Aureus Mrsa Isol. 2 Physical Exam HEENT: Pupils round and reactive to light; normocephalic; atraumatic; no jaundice. Throat is clear. NECK: Neck is supple, no JVD, no lymphadenopathy. CHEST: Chest is clear to auscultation and percussion. CARDIAC: Regular rate and rhythm with no murmur gallop or rubs. ABDOMEN: Soft, nondistended, nontender; no hepatosplenomegaly; bowel sounds are present in all four quadrants. EXTREMITIES: No clubbing, cyanosis, or edema. SKIN: Normal; no rash; no jaundice. [employer]: No focal deficits; alert and oriented times three. Assessment and Plan Plan ASSESSMENT: - Abdominal pain, pt had complained of abdominal pain following extubation. He states that he has been having issues with abdominal pain for the last few weeks , all left sided pain which is constant, no changes in the pain with food intake. Liver US (03/23) ---> No flow through TIPS shunt, but patent portal vein, hepatic artery. CT Abd/pelvis (03/24) ---> revealed cirrhotic appearing liver with TIPS catheter in place, moderate splenomegaly, moderate amount of ascitic fluid, cholelithiasis with 2 small calcified gallstones and no wall thickening or inflammatory change, small effusions and mild consolidation in the posterior lung bases. [facility] attempted bedside US for ascites removal but was unable to find a safe bedside pocket of ascites to tap for diagnosis and rule out SBP. GI was consulted for further evaluation of his abdominal pain. Splenic capsular pain is a possible cause of his abdominal pain. Pt is on empiric Zosyn to cover for possible SBP. 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 Labs at admission TBili 1.6, AST 79, ALT 34, AlkPhos 160. Pts LFTs have been slowly increasing since admission. Today's labs with TBili 3.5, DBili 1.8, IBili 1.7, AST 63, ALT 28, AlkPhos 89. No reported alcohol use in many years. Patient was reportedly assessed at the [facility] in [place] on 3 separate occasions and has reportedly been told that he is not a candidate for transplant. - Hepatitis C. Pt was reportedly diagnosed with liver disease and hepatitis C about 3 years ago, and has been treated with Harvoni earlier this year which was reportedly curative. - Hepatic Encephalopathy. Pt reports that his dose of Lactulose was decreased a few weeks ago to 2-3 doses per day. He states that prior to that he had been taking Lactulose 6 times per day. He follows with a GI physician in [place] where he resides. His labs at admission revealed serum ammonia level of 312. Lactulose and rifaximin were restarted/continued. Repeat today is 80. - Coagulopathy, likely secondary to ESLD. - Possible Seizure-like activity prior to admission. EEG showed background slowing, no active seizure like events. - VDRF/MRSA CAP. Pt states that he has been coughing up brown sputum for about the last week. Pt is on Linezolid for 7 days for MRSA in the sputum. management per attending. PLAN: - Cont. Zosyn for possible SBP - Cont. Xifaxin 550mg po BID - Cont. Lactulose 30mL QID - Monitor CBC, CMP, PT/INR, Ammonia level - IR consult pending - Full liquid diet as tolerated - Supportive care Barber Guaman MD Mar 26, 2017 15:12
[2017-03-27] VITALS (13 sets, daily range): BP systolic 108–138; BP diastolic 51–88; PULSE 70–98; RESP 18–20; TEMP 97.3–99.2; O2SAT 91–96
[2017-03-27] MEDS: RESP: ALBUTEROL 2.5 MG/IPRATROPIUM 0.5 MG NEB (SCH) INH ×2 (03:56→09:54)
[2017-03-27] MEDS: CHLORHEXIDINE GLUCONATE 2 % 1 PACK (2 CLOTHS) TOP SCH (04:00)
[2017-03-27] MEDS: PIPERACIL-TAZO 4.5 GM PREMIX 100 ML IV SCH ×4 (05:08→20:15)
[2017-03-27] MEDS: RIFAXIMIN 200 MG TAB PO SCH ×3 (05:09→20:26)
[2017-03-27 05:23] LABS: APTT (PATIENT) 36.1 SEC (24.3-30.1); INTERNATIONAL NORMALIZED RATIO 1.5 RATIO; PROTHROMBIN TIME - PATIENT 17.1 SEC (9.8-11.6)
[2017-03-27 05:34] LABS: HEMATOCRIT 21.8 % (39.0-51.0); MEAN CELL VOLUME 86.6 FL (80.0-100.0); MEAN CORPUSCULAR HEMOGLOBIN 28.1 PG (27.0-34.0); MEAN CORPUSCULAR HGB CONC 32.4 % (32.0-36.0); PLATELET COUNT 33 TH/MM3 (150-450); RED BLOOD COUNT 2.51 MIL/MM3 (4.50-5.90); RED CELL DISTRIBUTION WIDTH 17.2 % (11.6-17.2); WHITE BLOOD COUNT 2.1 TH/MM3 (4.0-11.0)
[2017-03-27 05:40] LABS: BICARBONATE 26.9 MEQ/L (21.0-32.0); POTASSIUM 3.4 MEQ/L (3.5-5.1)
[2017-03-27 05:44] LABS: INDIRECT BILIRUBIN 1.4 MG/DL (0.0-0.8); TOTAL BILIRUBIN ADULT 2.9 MG/DL (0.2-1.0)
[2017-03-27] MEDS: INSULIN NovoLIN REGULAR SUPPLEMENTAL SCALE SQ SCH ×4 (06:00→18:00)
[2017-03-27 06:09] LABS: REVIEW FLAG FINAL
[2017-03-27] MEDS: LINEZOLID 600 MG PREMIX 300 ML IV SCH ×2 (06:55→20:15)
[2017-03-27] MEDS: CHLORHEXIDINE 0.12% (ORAL KIT) 15 ML CUP MT SCH ×2 (08:00→20:00)
[2017-03-27] MEDS: FAMOTIDINE 20 MG TAB PO SCH ×2 (08:31→20:15)
[2017-03-27] MEDS: TAMSULOSIN HCL 0.4 MG CAP PO SCH (08:31)
[2017-03-27] MEDS: LACTULOSE SYRUP 20 GM/30 ML CUP PO SCH ×4 (08:31→20:15)
--- NOTE | 2017-03-27 11:02 | HHI.PR ---
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 According to the EMS report, the patient has a history of end-stage liver disease and was talking to his when he became acutely unresponsive and fell forward onto the ground. EMS attempted intubation was unsuccessful. He was brought in the emergency department where he was successfully intubated. CT CT angiogram head and neck are negative for acute stroke, although he does have evidence of old prior ischemic stroke in the right frontal lobe. Laboratory values are significant for a lactate of 7, and ammonia of 300. White count is normal. Patient does have laboratory evidence of end-stage liver disease including elevated INR, low albumin, thrombocytopenia. In talking with his , she states that he fell to the ground and had rhythmic shaking like movements. She states that he has been evaluated on multiple occasions for liver transplantation and the center that he was evaluated and did not feel that he was a good transplant candidate at this time. Unfortunately patient is unresponsive and intubated and cannot provide additional history. His does state that he has had a prior TIPS procedure and she is unclear whether or not he has ever had hepatic encephalopathy in the past Subjective: 03/21: ammonia downtrending. leukopenic and thrombocytopenic this morning, but may have a component of dilution. more awake today, but not yet following commands. spoke with and she would like a palliative care consult to help clarify her own goals of care regarding his ongoing transplant work-up and what the future of his ESLD might look like. 03/22 Patien tis sedated with Diprivan and intubated. Afebrile. 03/23: seen and examined around 10am today. patient much more awake and alert than yesterday. currently on CPAP SBT. ammonia stable. patient denies complaints and asked for ett to be removed. 03/24: seen and examined around 09:30am. abdominal pain persists. still leukopenic. KUB nonobstructive. liver ultrasound with evidence of no flow through TIPS shunt, patent portal vein, hepatic artery. today the patient's abdominal pain is slightly improved. I evaluated the abdomen with an ultrasound and cannot find a safe bedside pocket of ascites to tap for diagnosis and rule out SBP. will ask radiology to assist with radiologic guided aspiration. from a pulmonary status, improved and on NC o2. from a mental status, patient is almost back to neurologic baseline, only slightly confused at times. I had a conversation with the patient and his about code status and he wants to be made a Full Code (from previous DNR by his ). Hospitalist Notes: 03/25: Seen in his bedroom in the presence of relative, authorized for the patient to remain in his bedroom, discussed with nurse Miss Zepeda continue with Abdominal pain, Seen by GI specialist, Liver US (03/23) --- > No flow through TIPS shunt, but patent portal vein, hepatic artery. CT Abd/pelvis (03/24) ---> revealed cirrhotic appearing liver with TIPS catheter in place, not enough fluid for Paracentesis, has small effusion and mild consolidation in the posterior lung bases, the patient is not a candidate for Liver Transplant, on Lactulose and Rifaximin today is 80 recommended by GI specialist to continue Lactulose, Rifaximin, Zosyn, not available IR for consult for TIPS occlusion, Full liquid diet 03/26: Posterior Vitreous detachment recommended to follow his Primary Ophthalmology specialist on discharge, at this time in his bedroom no nausea, vomit or diarrhea, abdominal pain continue, as per GI recommended to continue Zosyn, Xifaxin, lactulose and follow laboratory. 03/27: Seen in his bedroom in the presence of his , still awaiting for Interventional radiology procedure, stable no nausea, vomit or diarrhea. Objective Vital Signs Date Time Temp Pulse Resp B/P Pulse Ox O2 Delivery O2 Flow Rate FiO2 03/27/17 09:56 96 Nasal Cannula 2.00 03/27/17 08:35 Nasal Cannula 2.00 03/27/17 08:00 98.2 79 20 119/57 91 03/27/17 04:00 99.0 92 20 138/63 93 03/27/17 04:00 99.0 92 20 93 03/27/17 03:56 93 Nasal Cannula 2.00 03/27/17 00:00 99.2 98 20 126/58 95 03/26/17 20:55 92 03/26/17 20:37 96 Nasal Cannula 2.00 03/26/17 20:00 Nasal Cannula 2.00 03/26/17 20:00 98.5 92 20 134/68 95 03/26/17 16:00 98.9 85 20 130/60 97 03/26/17 16:00 Nasal Cannula 2.00 03/26/17 12:01 98.7 87 20 136/62 98 03/26/17 12:00 Nasal Cannula 2.00 03/26/17 11:06 92 Nasal Cannula 2.00 I/O 03/26/17 03/26/17 03/26/17 03/27/17 03/27/17 03/27/17 07:00 15:00 23:00 07:00 15:00 23:00 Intake Total 115 ml 768 ml 0 ml 0 ml Output Total 600 ml 1000 ml 400 ml 200 ml Balance -485 ml -232 ml -400 ml -200 ml Intake Oral 240 ml 0 ml 0 ml IV Total 115 ml 528 ml Output Urine Total 600 ml 1000 ml 400 ml 200 ml # Bowel Movements 2 4 2 0 Result Diagram: 03/27/17 0430 03/27/17 0430 Imaging Last Impressions Abdomen/Pelvis CT 03/24/17 0000 Signed Impressions: Service Date/Time: Friday, March 24, 2017 19:24 - CONCLUSION: 1. Cirrhotic appearing liver with TIPS catheter in place. 2. Moderate splenomegaly. 3. Moderate amount of ascitic fluid. 4. Cholelithiasis with 2 small calcified gallstones and no wall thickening or inflammatory change. 5. Small effusions and mild consolidation in the posterior lung bases. Raúl Butts MD Liver Ultrasound 03/23/17 0000 Signed Impressions: Service Date/Time: Thursday, March 23, 2017 19:11 - CONCLUSION: TIPS shunt does not appear to be patent. Michael Marsh MD FACR Abdomen X-Ray 03/23/17 0000 Signed Impressions: Service Date/Time: Thursday, March 23, 2017 17:24 - CONCLUSION: Minimally dilated air-filled loops of small bowel may reflect very mild adynamic ileus versus developing partial small bowel obstruction. Evangelist Cornell MD Chest CT 03/22/17 0000 Signed Impressions: Service Date/Time: March 08:41 - CONCLUSION: 1. Bilateral lower lobe consolidation may reflect atelectasis or aspiration. 2. Scattered subtle patchy ground glass opacities in the right upper lobe may reflect volume loss although developing infection cannot be excluded. 3. Numerous nonspecific subcentimeter mediastinal nodes which do not meet CT size criteria but may have contributed to widened mediastinum on chest radiograph. Although differential considerations include both benign and malignant etiologies an infectious/inflammatory process is favored. 4. Prominence of the main pulmonary artery in this patient with cirrhosis and TIPS consistent with pulmonary artery hypertension. 5. Trace right pleural effusion and trace ascites in the visualized upper abdomen. Evangelist Cornell MD Head CT 03/20/1738 Signed Impressions: Service Date/Time: Monday, March 20, 2017 07:05 - CONCLUSION: 1. Right maxillary sinus mucosal thickening. 2. Remote right frontal infarct. Yehuda Oro MD Chest X-Ray [id number]/20/17637 Signed Impressions: Service Date/Time: Monday, March 20, 2017 08:06 - CONCLUSION: Left lower lobe consolidation, apparent widening of the superior mediastinal contour which can be further evaluated with CT chest with contrast if felt clinically warranted. Yehuda Oro MD Neck CTA 03/20/17 0000 Signed Impressions: Service Date/Time: Monday, March 20, 2017 07:28 - CONCLUSION: 1. No evidence for hemodynamically significant stenosis of either carotid artery. Yehuda Oro MD Maxillofacial CT 03/20/17 0000 Signed Impressions: Service Date/Time: Monday, March 20, 2017 07:02 - CONCLUSION: 1. There is a fracture the right maxillary sinus wall and right orbital floor which are felt to be nonacute with evidence of previous surgery and periosteal thickening. 2. Small air-fluid level left sphenoid sinus, and moderate circumferential mucosal thickening in the right maxillary sinus. Yehuda Oro MD Head CTA 03/20/17 0000 Signed Impressions: Service Date/Time: Monday, March 20, 2017 07:28 - CONCLUSION: 1. Normal intracranial vasculature. 2. Pulmonary consolidation and effusions are noted. Yehuda Oro MD Cervical Spine CT 03/20/17 0000 Signed Impressions: Service Date/Time: Monday, March 20, 2017 07:06 - CONCLUSION: Degenerative changes are noted without fracture or listhesis. Bilateral upper lobe consolidative opacity. Yehuda Oro MD Procedures Endotracheal intubation and Extubation. Other Results Laboratory Tests Test 03/23/17 03/24/17 03/25/17 03/26/17 08:27 10:45 08:37 09:45 Neutrophils (%) (Auto) 72.0 % Lymphocytes (%) (Auto) 12.2 % Monocytes (%) (Auto) 9.6 % Eosinophils (%) (Auto) 5.8 % Basophils (%) (Auto) 0.4 % Neutrophils # (Auto) 1.7 TH/MM3 Lymphocytes # (Auto) 0.3 TH/MM3 Monocytes # (Auto) 0.2 TH/MM3 Eosinophils # (Auto) 0.1 TH/MM3 Basophils # (Auto) 0.0 TH/MM3 CBC Comment AUTO DIFF Differential Comment AUTO DIFF CONFIRMED Platelet Estimate LOW Platelet Morphology Comment NORMAL Ovalocytes 1+ Acanthocytes OCC Phosphorus Level 2.8 MG/DL Magnesium Level 1.7 MG/DL Lipase 138 U/L Hematology Comments Protein Corrected Calcium 8.4 MG/DL Ammonia 108 MCMOL/L Test 03/27/17 04:30 White Blood Count 2.1 TH/MM3 Red Blood Count 2.51 MIL/MM3 Hemoglobin 7.1 GM/DL Hematocrit 21.8 % Mean Corpuscular Volume 86.6 FL Mean Corpuscular Hemoglobin 28.1 PG Mean Corpuscular Hemoglobin 32.4 % Concent Red Cell Distribution Width 17.2 % Platelet Count 33 TH/MM3 Mean Platelet Volume 7.3 FL Prothrombin Time 17.1 SEC Prothromb Time International 1.5 RATIO Ratio Activated Partial 36.1 SEC Thromboplast Time Sodium Level 143 MEQ/L Potassium Level 3.4 MEQ/L Chloride Level 110 MEQ/L Carbon Dioxide Level 26.9 MEQ/L Anion Gap 6 MEQ/L Blood Urea Nitrogen 6 MG/DL Creatinine 0.66 MG/DL Estimat Glomerular Filtration 124 ML/MIN Rate Random Glucose 89 MG/DL Calcium Level 7.7 MG/DL Total Bilirubin 2.9 MG/DL Direct Bilirubin 1.5 MG/DL Indirect Bilirubin 1.4 MG/DL Aspartate Amino Transf 48 U/L (AST/SGOT) Alanine Aminotransferase 25 U/L (ALT/SGPT) Alkaline Phosphatase 84 U/L Total Protein 5.5 GM/DL Albumin 2.0 GM/DL Objective Remarks GENERAL: Alert and oriented, no acute distress. HEENT: Normocephalic. Atraumatic. Pupils equal, round, reactive, conjugate. Mucous membranes are moist NECK: Trachea is midline. There is no JVD. CHEST: Decreased breath sounds bilateral, no wheezing or crackles. CARDIOVASCULAR: normal Rate, regular rhythm. Sinus by telemetry ABDOMEN: Soft, mildly tender diffusely to palpation. no guarding or rebound. MUSCULOSKELETAL: Pulses 2+. No peripheral edema. NEUROLOGICAL: Alert and oriented x 3 Medications and IVs Current Medications Medications (Trade) Dose Ordered Sig/Paige Route Start Time Stop Time Status Last Admin (NS Flush) 2 ml UNSCH PRN IV FLUSH 03/20/17 06:45 (Trandate Inj) 20 mg Q15M PRN IV PUSH 03/20/17 07:30 (Apresoline Inj) 10 mg Q30M PRN IV PUSH 03/20/17 07:30 (Peridex 0.12% Liq) 15 ml BID@08,20 MT 03/20/17 08:00 03/26/17 23:11 (D50w (Vial) Inj) 25 ml UNSCH PRN IV PUSH 03/20/17 07:30 (NovoLIN R SUPPLEMENTAL SCALE) 1 Q6HR SQ 03/20/17 12:00 03/26/17 18:00 (Zofran Inj) 4 mg Q6H PRN IV 03/20/17 07:30 Miscellaneous Information 1 Q361D XX 03/20/17 07:30 03/20/17 07:30 (Chlorhexidine 2% Cloth) Taper DAILY@04 TOP 03/21/17 04:00 03/17/18 03:59 03/26/17 03:29 (Chlorhexidine 2% Cloth) 3 pack UNSCH PRN TOP 03/20/17 07:30 (Lactulose Liq) 30 ml QID PO 03/20/17 09:00 03/27/17 08:31 (Glucagon Inj) 1 mg UNSCH PRN OTHER 03/20/17 07:45 Rifaximin 400 mg 400 mg Q8HR PO 03/20/17 14:00 03/27/17 05:09 (Zosyn 4.5 Gm Premix) 100 ml @ 200 mls/hr Q6H IV 03/22/17 09:00 03/27/17 08:32 Famotidine 20 mg 20 mg BID PO 03/23/17 21:00 03/27/17 08:31 (Zyvox 600 Mg Premix) 300 ml @ 300 mls/hr Q12H IV 03/23/17 17:00 03/30/17 16:59 03/27/17 06:55 (Dilaudid Pf Inj) 0.5 mg Q4H PRN IV PUSH 03/23/17 17:45 03/26/17 09:53 (Flomax) 0.4 mg DAILY PO 03/24/17 09:00 03/27/17 08:31 A/P Assessment and Plan Assessment: 57yM with 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 Now complicated by worsening generalized abdominal pain. Will order CT abd/pelvis with IV and PO contrast, as well as ask radiology to aspirate ascites for culture and cell count. Unclear if TIPS is chronically or acutely occluded. will also get GIs opinion on abdominal pain and possible TIPS occlusion. Pulmonary and hemodynamic standpoint, clinically continues to improve , and likely stable for transfer from ICU. From an infectious standpoint, never had fever, leukocytosis, increased o2 requirement, increased sputum requirement. will continue Linezolid for MRSA in the sputum (unclear if infected or just colonized without overt signs of infection), and contine Zosyn until we can rule out SBP as a source of abdominal pain. Medically complex patient with multiple problems. 1. Hepatic Encephalopathy Improving Possible Seizure-like activity resolved Hyperammonemia resolving Goal RASS 0 EEG showed background slowing, no active seizure like events. Continue Lactulose and rifaximin -03/20: CT brain: Right maxillary sinus mucosal thickening. Remote right frontal infarct. - Avoid benzos. Avoid long-acting sedating meds. 2. VDRF resolved/Possible MRSA CAP Bronchodilator, Mucolytic, Incentive spirometry, Antibiotics 3. Urinary Retention, Flomax recommended to repeat voiding trial today or in am tomorrow. 4. End stage Liver disease/Lactic Acidosis resolved, Possible Occluded TIPS shunt unknown if acute or chronic following CMPs, advance diet as tolerated, CT abd/pelvis with IV and PO contrast, IR consult, GI consult no large safe fluid collection to tap, found large splenomegaly, Severe Portal Hypertension evident and splenic capsular pain may be cause, not able to say if TIPS is occluded, 03/25, Seen by GI specialist, Liver US (03/23) ---> No flow through TIPS shunt, but patent portal vein, hepatic artery CT Abd/pelvis (03/24) ---> revealed cirrhotic appearing liver with TIPS catheter in place, not enough fluid for Paracentesis, has small effusion and mild consolidation in the posterior lung bases, the patient is not a candidate for Liver Transplant, on Lactulose and Rifaximin today is 80. recommended by GI specialist to continue Lactulose, Rifaximin, Zosyn, consulted IR for TIPS evaluation. , Full liquid diet 5. Coagulopathy secondary to liver disease/thrombocytopenia secondary to liver disease/Pancytopenia 6. MRSA sputum, possible CAP and rule out SBP, GI specialist consulted, on Empiric Zosyn to cover for SBP blood cultures negative, follow ascitic culture, continue Linezolid for 7 days for MRSA sputum Prophylaxis: GI Prophylaxis Protonix DVT Prophylaxis -- SCDs Holding pharmacologic DVT prophylaxis in the setting of end-stage liver disease with coagulopathy Lines: Peripheral IVs Cruz was replaced due to urinary retention. will trial second attempt in 48h after Flomax started. Code Status Full Code. No changes to anterior assessment Discharge Planning Not yet cleared for discharge. Chano Morrow MD Mar 27, 2017 11:02
[2017-03-27] MEDS: HYDROmorphone HCL PF 1 MG/ML VIAL IV PUSH PRN ×2 (11:45→20:29)
[2017-03-27] MEDS ORDERED: MIDAZOLAM HCL 5 MG/5 ML VIAL ONE (14:25)
[2017-03-27] MEDS ORDERED: fentaNYL CITRATE 250 MCG/5 ML AMP ONE (14:26)
[2017-03-27] MEDS ORDERED: ALTEPLASE RECOMBINANT 2 MG VIAL ONE (14:30)
[2017-03-27] MEDS ORDERED: HEPARIN SODIUM - IV 10,000 UNITS/10 ML VIAL ONE (16:24)
--- NOTE | 2017-03-27 16:36 | PD.RAD ---
Post Procedure Progress Note Pre Procedure Diagnosis: (1) S/P TIPS (transjugular intrahepatic portosystemic shunt) Post Procedure Diagnosis: (1) S/P TIPS (transjugular intrahepatic portosystemic shunt) Procedure Date: Mar 27, 2017 Supervising Radiologist: Evangelist Cornell Proceduralist/Assist: Renae Harris, RT(R)(), Sandro Rosen, RT(R)() Anesthesia: Conscious Sedation Plan of Activity Patient to Unit: Nursing Unit Patient Condition: Good Additional Comments: Thrombosed TIPS with Massively dilated PV. Likely secondary to HV end stenosis. Good result following 10mm plasty with total gradient of approx 8mmhg. See PACS Report for procedural detail/treatment Evangelist Cornell MD Mar 27, 2017 16:35
[2017-03-27] MEDS ORDERED: IOHEXOL 350 MG/ML 100 ML BTL (for RAD DIAG) IV ONE (16:53)
[2017-03-28] VITALS (8 sets, daily range): BP systolic 114–164; BP diastolic 57–85; PULSE 71–86; RESP 16–20; TEMP 97.2–98.4; O2SAT 93–98
[2017-03-28] MEDS: PIPERACIL-TAZO 4.5 GM PREMIX 100 ML IV SCH ×4 (03:00→20:25)
[2017-03-28] MEDS: CHLORHEXIDINE GLUCONATE 2 % 1 PACK (2 CLOTHS) TOP SCH (04:00)
[2017-03-28] MEDS: LINEZOLID 600 MG PREMIX 300 ML IV SCH ×2 (05:24→18:18)
[2017-03-28] MEDS: RIFAXIMIN 200 MG TAB PO SCH ×3 (05:27→20:29)
[2017-03-28] MEDS: INSULIN NovoLIN REGULAR SUPPLEMENTAL SCALE SQ SCH ×5 (05:29→23:04)
[2017-03-28] MEDS: HYDROmorphone HCL PF 1 MG/ML VIAL IV PUSH PRN ×5 (05:48→23:09)
[2017-03-28] MEDS: CHLORHEXIDINE 0.12% (ORAL KIT) 15 ML CUP MT SCH ×2 (08:00→20:00)
[2017-03-28] MEDS: TAMSULOSIN HCL 0.4 MG CAP PO SCH (08:39)
[2017-03-28] MEDS: FAMOTIDINE 20 MG TAB PO SCH ×2 (08:39→20:27)
[2017-03-28] MEDS: LACTULOSE SYRUP 20 GM/30 ML CUP PO SCH ×4 (08:39→20:28)
--- NOTE | 2017-03-28 08:44 | HHI.HCPN ---
Reason for visit a. To assist with evaluation and management of symptoms including: Encephalopathy, pain b. To assist medical decision maker(s) with: better understanding of current medical conditions; weighing benefits/burdens of medical treatment options; making medical treatment decisions. . Subjective/Interval History INTERVAL NOTE: Pt was found to have no flow through TIPS shunt, but patent portal vein, hepatic artery. GI recommended continue lactulose, Rifaximin, Zosyn, IR consulted to reopen TIPS. Pt had procedure yesterday Feb 25, 2017. In the mean time pt is now a Full Code. Amonia Level is 88. Plan meeting with pt and at 10:00AM Advance Directives Living Will: Never completed Health Care Surrogate: Never completed Durable Power of Shoe Cementer: Never completed Objective Vital Signs Date Time Temp Pulse Resp B/P Pulse Ox O2 Delivery O2 Flow Rate FiO2 03/28/17 04:00 97.2 74 20 114/57 96 03/28/17 00:00 97.4 74 20 125/58 96 03/27/17 20:15 Nasal Cannula 2.00 03/27/17 20:01 76 03/27/17 20:00 Nasal Cannula 2.00 03/27/17 20:00 97.3 76 20 115/59 96 03/27/17 18:05 77 20 114/53 96 03/27/17 17:35 96 Nasal Cannula 2.00 03/27/17 17:35 70 20 127/56 96 03/27/17 17:05 70 20 125/88 96 03/27/17 16:30 81 20 108/51 95 03/27/17 11:55 98.8 85 18 124/58 92 03/27/17 09:56 96 Nasal Cannula 2.00 Intake & Output 03/28/17 03/28/17 07:00 19:00 Intake Total 100 ml Output Total 1050 ml Balance -950 ml Intake Oral 100 ml Output Urine Total 1050 ml # Bowel Movements 0 Physical Exam DRAFT CONSTITUTIONAL/GENERAL: This is an adequately nourished patient, in no apparent distress, in the IMC, intubated NECK: Trachea midline. Supple, nontender. No palpable thyroid enlargement or nodularity. CARDIOVASCULAR: Regular rate and rhythm without murmurs, gallops, or rubs. No JVD. Peripheral pulses symmetric. RESPIRATORY/CHEST: Symmetric, unlabored respirations. Clear to auscultation. Breath sounds equal bilaterally. No wheezes, rales, or rhonchi. GASTROINTESTINAL: Abdomen soft, non-tender, nondistended. No hepato-splenomegaly , or palpable masses. No guarding. Bowel sounds present. GENITOURINARY: Without palpable bladder distension. Cruz catheter in place. MUSCULOSKELETAL: Extremities without clubbing, cyanosis, or edema. No joint tenderness or effusion noted. No calf tenderness. No mottling or clubbing. NEUROLOGICAL: Unresponsive, sedated on the vent. PSYCHIATRIC: Unable to assess due to clinical condition . Diagnostic Tests Laboratory Laboratory Tests Test 03/26/17 03/27/17 03/27/17 09:45 04:30 23:15 White Blood Count 4.1 TH/MM3 2.1 TH/MM3 (4.0-11.0) (4.0-11.0) Red Blood Count 2.78 MIL/MM3 2.51 MIL/MM3 (4.50-5.90) (4.50-5.90) Hemoglobin 7.9 GM/DL 7.1 GM/DL (13.0-17.0) (13.0-17.0) Hematocrit 24.2 % 21.8 % (39.0-51.0) (39.0-51.0) Mean Corpuscular Volume 87.3 FL 86.6 FL (80.0-100.0) (80.0-100.0) Mean Corpuscular Hemoglobin 28.4 PG 28.1 PG (27.0-34.0) (27.0-34.0) Mean Corpuscular Hemoglobin 32.5 % 32.4 % Concent (32.0-36.0) (32.0-36.0) Red Cell Distribution Width 17.3 % 17.2 % (11.6-17.2) (11.6-17.2) Platelet Count 35 TH/MM3 33 TH/MM3 (150-450) (150-450) Mean Platelet Volume 8.0 FL 7.3 FL (7.0-11.0) (7.0-11.0) Prothrombin Time 17.4 SEC 17.1 SEC (9.8-11.6) (9.8-11.6) Prothromb Time International 1.5 RATIO 1.5 RATIO Ratio Activated Partial 37.0 SEC 36.1 SEC Thromboplast Time (24.3-30.1) (24.3-30.1) Sodium Level 142 MEQ/L 143 MEQ/L (136-145) (136-145) Potassium Level 3.6 MEQ/L 3.4 MEQ/L (3.5-5.1) (3.5-5.1) Chloride Level 107 MEQ/L 110 MEQ/L (98-107) (98-107) Carbon Dioxide Level 29.8 MEQ/L 26.9 MEQ/L (21.0-32.0) (21.0-32.0) Anion Gap 5 MEQ/L (5-15) 6 MEQ/L (5-15) Blood Urea Nitrogen 6 MG/DL (7-18) 6 MG/DL (7-18) Creatinine 0.69 MG/DL 0.66 MG/DL (0.60-1.30) (0.60-1.30) Estimat Glomerular Filtration 117 ML/MIN 124 ML/MIN Rate (>89) (>89) Random Glucose 148 MG/DL 89 MG/DL (74-106) (74-106) Calcium Level 7.6 MG/DL 7.7 MG/DL (8.5-10.1) (8.5-10.1) Total Bilirubin 4.1 MG/DL 2.9 MG/DL (0.2-1.0) (0.2-1.0) Direct Bilirubin 2.1 MG/DL 1.5 MG/DL (0.0-0.2) (0.0-0.2) Indirect Bilirubin 2.0 MG/DL 1.4 MG/DL (0.0-0.8) (0.0-0.8) Aspartate Amino Transf 56 U/L (15-37) 48 U/L (15-37) (AST/SGOT) Alanine Aminotransferase 27 U/L (12-78) 25 U/L (12-78) (ALT/SGPT) Alkaline Phosphatase 83 U/L (45-117) 84 U/L (45-117) Ammonia 108 MCMOL/L 88 MCMOL/L (11-32) (11-32) Total Protein 5.8 GM/DL 5.5 GM/DL (6.4-8.2) (6.4-8.2) Albumin 2.1 GM/DL 2.0 GM/DL (3.4-5.0) (3.4-5.0) Result Diagram: 03/27/17 0430 03/27/17 0430 Procedures INTUBATION 03/20/17 . Assessment and Plan Disease Oriented Problem List: (1) end-stage liver disease, currently with MELD score 14 (2) remote history of alcohol abuse, reportedly none in 25 years (3) history of hepatitis C, s/p Harvoni treatment (4) hepatic encephalopathy (5) evaluated at [facility] but felt to NOT be a liver transplant candidate (6) history of chronic pain syndrome (and possible drug-seeking behavior in the past per ) (7) fall with right shoulder fracture, September 2016 (8) closed head injury, with abrasion/contusion of forehead (9) apparent seizure, with no history of prior seizures Symptom Scale: (1) pain 0-10 Scale: Unable to quantify (2) encephalopathy 0-10 Scale: Unable to quantify Pertinent Non-Medical Issues Psychosocial: Disabled, , has 3 longtime estranged children, 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 Spiritual: The patient was raised Yazidism, but is now quite spiritual and connected to a uatsdin taoist. The patient's has requested performing artist visits here at the hospital. Legal: The patient lacks capacity for decision-making at this time. It is possible that he will regain that capacity; in the meantime, the patient's spouse Lo is the decision-maker by proxy. Ethical issues impacting care: None . Important Contacts : Lo Trinh . Prognosis The patient's overall prognosis is guarded. He has significant liver disease, overall weakness/debility, is not a candidate for transplantation, and now has another episode of significant hepatic encephalopathy. The patient's plans to reengage hospice services when they return home to [facility], assuming he survives this hospitalization. . Code Status: No Code Plan * DO NOT RESUSCITATE * DECISION-MAKING: The patient lacks capacity for decision-making at this time. It is possible but uncertain whether he will regain that capacity; in the meantime, the patient's spouse Lo is the decision-maker by proxy. * GOALS: The patient's has requested DNR status for him. She says she does not want him to be uncomfortable. She notes that they did contact a hospice organization in [facility] a week or 2 ago and the patient spoke with them "but he was afraid." She notes that she will reengage with hospice when they return home, assuming he survives this hospitalization. She is hoping that the patient really awakens, is extubated, and eventually they get to return to their home in [facility]. * SYMPTOMS: The patient's encephalopathy is being treated with rifaximin and lactulose. He remains on mechanical ventilation and sedation, and has no obvious pain at this time. No additional medication recommendations are made. * Palliative Care will continue to follow the patient during this hospitalization. . Attestation To help prompt me to consider important information that might be impacting today's encounter and assessment, information from prior notes written by myself or my colleagues may have been "brought forward" into today's note. My signature on this note, however, is an attestation that I personally performed the exam, history, and/or decision-making noted today, and, unless otherwise indicated, the interactions with patient, family, and staff as well as the review of records all occurred today. I also attest that the listed assessment and stated plan reflect my best clinical judgment today based on the combination of historical information, prior notes, and today's exam/ interactions. When time spent is documented, it refers only to time spent today by the signer, or if indicated, combined time spent today by collaborating physician/nurse practitioner. Jean-Pierre Tsai MD Mar 28, 2017 08:44
--- NOTE | 2017-03-28 11:52 | HHI.HCPN ---
Reason for visit a. To assist with evaluation and management of symptoms including: Encephalopathy, pain (neuropathic, gouty) b. To assist medical decision maker(s) with: better understanding of current medical conditions; weighing benefits/burdens of medical treatment options; making medical treatment decisions. . Subjective/Interval History INTERVAL NOTE: Pt was found to have no flow through TIPS shunt, but patent portal vein, hepatic artery. GI recommended continue lactulose, Rifaximin, Zosyn, IR consulted to reopen TIPS. Pt had procedure yesterday Feb 25, 2017. In the mean time pt is now a Full Code. Amonia Level is 88. Met with patient and pt's . Currently pt have a basic understanding of his liver issue. He is oriented x 3 and know who the president is and appears capacitated to make medical decision. I have called GI physician, and have reviewed, pt most likely is not a candidate for liver transplant, given worsening functional status. Would be supportive of transition to comfort if goals if pt's goals are comfort oriented. Pt decided to be a DNR. Made decision to transition to comfort measures only. Amenable to meet with hospice. Goals is eventually meet with hospice [place]. Endorses pain in the right elbow and also pins and needle sensation of his feet. Family/friend interactions see above. Advance Directives Living Will: Never completed Health Care Surrogate: Never completed Durable Power of Student Teaching Coordinator: Never completed Objective Vital Signs Date Time Temp Pulse Resp B/P Pulse Ox O2 Delivery O2 Flow Rate FiO2 03/28/17 10:42 Nasal Cannula 2.00 03/28/17 08:00 Nasal Cannula 2.00 03/28/17 08:00 71 03/28/17 08:00 98.0 72 18 116/58 96 03/28/17 04:00 97.2 74 20 114/57 96 03/28/17 00:00 97.4 74 20 125/58 96 03/27/17 20:15 Nasal Cannula 2.00 03/27/17 20:01 76 03/27/17 20:00 Nasal Cannula 2.00 03/27/17 20:00 97.3 76 20 115/59 96 03/27/17 18:05 77 20 114/53 96 03/27/17 17:35 96 Nasal Cannula 2.00 03/27/17 17:35 70 20 127/56 96 03/27/17 17:05 70 20 125/88 96 03/27/17 16:30 81 20 108/51 95 03/27/17 11:55 98.8 85 18 124/58 92 Intake & Output 03/28/17 03/28/17 07:00 19:00 Intake Total 100 ml Output Total 1050 ml Balance -950 ml Intake Oral 100 ml Output Urine Total 1050 ml # Bowel Movements 0 Physical Exam CONSTITUTIONAL/GENERAL: This is an adequately nourished patient, complains of some discomfort of elbow. alert and oriented, but fatigued. NECK: Trachea midline. Supple, nontender. No palpable thyroid enlargement or nodularity. CARDIOVASCULAR: Regular rate and rhythm without murmurs, gallops, or rubs. No JVD. Peripheral pulses symmetric. RESPIRATORY/CHEST: Symmetric, unlabored respirations. Clear to auscultation. Breath sounds equal bilaterally. No wheezes, rales, or rhonchi. GASTROINTESTINAL: Abdomen soft, tenderness on left lower quadrant. No hepato- splenomegaly, or palpable masses. No guarding. Bowel sounds present. GENITOURINARY: Without palpable bladder distension. Cruz catheter in place. MUSCULOSKELETAL: Extremities without clubbing, cyanosis, or edema. right elbow joint tenderness NEUROLOGICAL: alerted oriented x 3 and moves all ext. PSYCHIATRIC: fatigued . Diagnostic Tests Laboratory Laboratory Tests Test 03/26/17 03/27/17 03/27/17 09:45 04:30 23:15 White Blood Count 4.1 TH/MM3 2.1 TH/MM3 (4.0-11.0) (4.0-11.0) Red Blood Count 2.78 MIL/MM3 2.51 MIL/MM3 (4.50-5.90) (4.50-5.90) Hemoglobin 7.9 GM/DL 7.1 GM/DL (13.0-17.0) (13.0-17.0) Hematocrit 24.2 % 21.8 % (39.0-51.0) (39.0-51.0) Mean Corpuscular Volume 87.3 FL 86.6 FL (80.0-100.0) (80.0-100.0) Mean Corpuscular Hemoglobin 28.4 PG 28.1 PG (27.0-34.0) (27.0-34.0) Mean Corpuscular Hemoglobin 32.5 % 32.4 % Concent (32.0-36.0) (32.0-36.0) Red Cell Distribution Width 17.3 % 17.2 % (11.6-17.2) (11.6-17.2) Platelet Count 35 TH/MM3 33 TH/MM3 (150-450) (150-450) Mean Platelet Volume 8.0 FL 7.3 FL (7.0-11.0) (7.0-11.0) Prothrombin Time 17.4 SEC 17.1 SEC (9.8-11.6) (9.8-11.6) Prothromb Time International 1.5 RATIO 1.5 RATIO Ratio Activated Partial 37.0 SEC 36.1 SEC Thromboplast Time (24.3-30.1) (24.3-30.1) Sodium Level 142 MEQ/L 143 MEQ/L (136-145) (136-145) Potassium Level 3.6 MEQ/L 3.4 MEQ/L (3.5-5.1) (3.5-5.1) Chloride Level 107 MEQ/L 110 MEQ/L (98-107) (98-107) Carbon Dioxide Level 29.8 MEQ/L 26.9 MEQ/L (21.0-32.0) (21.0-32.0) Anion Gap 5 MEQ/L (5-15) 6 MEQ/L (5-15) Blood Urea Nitrogen 6 MG/DL (7-18) 6 MG/DL (7-18) Creatinine 0.69 MG/DL 0.66 MG/DL (0.60-1.30) (0.60-1.30) Estimat Glomerular Filtration 117 ML/MIN 124 ML/MIN Rate (>89) (>89) Random Glucose 148 MG/DL 89 MG/DL (74-106) (74-106) Calcium Level 7.6 MG/DL 7.7 MG/DL (8.5-10.1) (8.5-10.1) Total Bilirubin 4.1 MG/DL 2.9 MG/DL (0.2-1.0) (0.2-1.0) Direct Bilirubin 2.1 MG/DL 1.5 MG/DL (0.0-0.2) (0.0-0.2) Indirect Bilirubin 2.0 MG/DL 1.4 MG/DL (0.0-0.8) (0.0-0.8) Aspartate Amino Transf 56 U/L (15-37) 48 U/L (15-37) (AST/SGOT) Alanine Aminotransferase 27 U/L (12-78) 25 U/L (12-78) (ALT/SGPT) Alkaline Phosphatase 83 U/L (45-117) 84 U/L (45-117) Ammonia 108 MCMOL/L 88 MCMOL/L (11-32) (11-32) Total Protein 5.8 GM/DL 5.5 GM/DL (6.4-8.2) (6.4-8.2) Albumin 2.1 GM/DL 2.0 GM/DL (3.4-5.0) (3.4-5.0) Result Diagram: 03/27/17 0430 03/27/17 0430 Procedures INTUBATION 03/20/17 . Assessment and Plan Disease Oriented Problem List: (1) end-stage liver disease, currently with MELD score 14 (2) remote history of alcohol abuse, reportedly none in 25 years (3) history of hepatitis C, s/p Harvoni treatment (4) hepatic encephalopathy (5) evaluated at [facility] but felt to NOT be a liver transplant candidate (6) history of chronic pain syndrome (and possible drug-seeking behavior in the past per ) (7) fall with right shoulder fracture, September 2016 (8) closed head injury, with abrasion/contusion of forehead (9) apparent seizure, with no history of prior seizures Symptom Scale: (1) pain 0-10 Scale: Unable to quantify (2) encephalopathy 0-10 Scale: Unable to quantify Pertinent Non-Medical Issues Psychosocial: Disabled, , has 3 longtime estranged children, 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 Spiritual: The patient was raised Religious, but is now quite spiritual and connected to a christianity orthodox. The patient's has requested millwright supervisor visits here at the hospital. Legal: The patient lacks capacity for decision-making at this time. It is possible that he will regain that capacity; in the meantime, the patient's spouse Lo is the decision-maker by proxy. Ethical issues impacting care: None . Important Contacts : Lo Trinh . Prognosis The patient's overall prognosis is poor. He has ES Liver failure and unlikely to be a candidate for transplant. Worsening functional status. Spoke with GI who is supportive of transition to comfort measures if goals of care of pt is comfort only.. He has significant liver disease, overall weakness/debility, is not a candidate for transplantation. Is appropriate for hospice. . Code Status: No Code Plan * DO NOT RESUSCITATE * DECISION-MAKING: Has capacity to make decision on my visit today. * GOALS: I have called GI physician, and have reviewed, pt most likely is not a candidate for liver transplant, given worsening functional status. Would be supportive of transition to comfort if goals if pt's goals are comfort oriented. Pt decided to be a DNR. Made decision to transition to comfort measures only. Amenable to meet with hospice. Goals is eventually meet with hospice down [facility].. * SYMPTOMS: Pain, R elbow pain and abdominal pain, continue dilaudid and monitor. * Palliative Care will continue to follow the patient during this hospitalization. d/w with attending physician and GI. Time Spent Total Floor Time (mins): 35 >50% Counseling/Coord of Care: Yes Attestation To help prompt me to consider important information that might be impacting today's encounter and assessment, information from prior notes written by myself or my colleagues may have been "brought forward" into today's note. My signature on this note, however, is an attestation that I personally performed the exam, history, and/or decision-making noted today, and, unless otherwise indicated, the interactions with patient, family, and staff as well as the review of records all occurred today. I also attest that the listed assessment and stated plan reflect my best clinical judgment today based on the combination of historical information, prior notes, and today's exam/ interactions. When time spent is documented, it refers only to time spent today by the signer, or if indicated, combined time spent today by collaborating physician/nurse practitioner. Jean-Pierre Tsai MD Mar 28, 2017 11:52 Jean-Pierre Tsai MD Mar 28, 2017 11:52
--- NOTE | 2017-03-28 13:25 | HHI.PR ---
Subjective Remarks No complains today. Patient had a discussion with palliative care today. We' ll consult with hospice regarding this and possible long-term hospice care. Yesterday he had resolution of his TIPS occlusion. Ammonia level is improved. Physical strength is decreased compared to prior baseline. He has not yet been able to ambulate while here. Objective Vital Signs Date Time Temp Pulse Resp B/P Pulse Ox O2 Delivery O2 Flow Rate FiO2 03/28/17 11:56 98.4 85 19 124/85 98 03/28/17 10:42 Nasal Cannula 2.00 03/28/17 08:00 Nasal Cannula 2.00 03/28/17 08:00 71 03/28/17 08:00 98.0 72 18 116/58 96 03/28/17 04:00 97.2 74 20 114/57 96 03/28/17 00:00 97.4 74 20 125/58 96 03/27/17 20:15 Nasal Cannula 2.00 03/27/17 20:01 76 03/27/17 20:00 Nasal Cannula 2.00 03/27/17 20:00 97.3 76 20 115/59 96 03/27/17 18:05 77 20 114/53 96 03/27/17 17:35 96 Nasal Cannula 2.00 03/27/17 17:35 70 20 127/56 96 03/27/17 17:05 70 20 125/88 96 03/27/17 16:30 81 20 108/51 95 I/O 03/27/17 03/27/17 03/27/17 03/28/17 03/28/17 03/28/17 07:00 15:00 23:00 07:00 15:00 23:00 Intake Total 0 ml 426 ml 100 ml Output Total 200 ml 300 ml 650 ml 400 ml Balance -200 ml 126 ml -650 ml -300 ml Intake Oral 0 ml 100 ml IV Total 426 ml Output Urine Total 200 ml 300 ml 650 ml 400 ml # Bowel Movements 0 2 0 Result Diagram: 03/27/1742903/27/17429 Procedures Endotracheal intubation and Extubation. Objective Remarks GENERAL: NAD, A&Ox2 HEAD: Normocephalic. NECK: Supple, trachea midline. No lymphadenopathy. EYES: No scleral icterus. No injection or drainage. CARDIOVASCULAR: Regular rate and rhythm without murmurs, gallops, or rubs. RESPIRATORY: Breath sounds equal bilaterally. No accessory muscle use. GASTROINTESTINAL: Abdomen soft, non-tender, nondistended. MUSCULOSKELETAL: No cyanosis, or edema. SKIN: Warm and dry. NEURO: No focal neurological deficitis. Global weakness. A/P Problem List: (1) hepatic encephalopathy Assessment and Plan Assessment and Plan 57-year-old male with end-stage liver disease. Admitted secondary to severe hepatic encephalopathy acquiring intubation. Improvement through time and with treatments. TIPS occlusion Resolved with IR intervention yesterday Hepatic Encephalopathy End-stage liver disease Improved on treatment. Monitor for stability. Avoid sedatives Palliative care following Hospice consulted Community-acquired pneumonia (MRSA) Bronchodilators Mucomyst Incentive spirometry Continue antibiotics (Zosyn, the Linezolid) Clinically improved Urinary retention Urine remains blood-tinged Delay void trial tomorrow Follow urine output Continue Flomax Pancytopenia Thrombocytopenia Coagulopathy These are secondary to liver disease Treatment liver disease and manage DVT Prophylaxis SCDs Code Status Full Code, considering DO NOT RESUSCITATE Discharge Planning Follow for stability of ammonia level Carlos Flannery MD Mar 28, 2017 13:25
--- NOTE | 2017-03-28 14:12 | RADRPT ---
EXAM DATE/TIME: 03/27/2017 13:35 [facility] COMPARISON: No previous studies available for comparison. INDICATIONS : 57-year-old male with history of cirrhosis and TIPS placement for variceal hemorrhage approximately o ne year ago at outside institution. Patient was admitted with encephalopathy and sepsis. Patient's TI PS was noted to be occluded. Patient has since improved significantly and is now menstruating appropr iately. Therefore, TIPS evaluation and possible revision has been requested. MEDICAL HISTORY : 1.End-stage liver disease 2.Hep C 3.Abdominal pain SURGICAL HISTORY : 1.TIPS procedure ENCOUNTER: Initial ACUITY: > 1 year PAIN SCORE: 8/10 LOCATION: Lower back/Abdominal FLUORO TIME: 8.9 minutes IMAGE SERIES: 6 ACCESS SITE: Right Jugular vein SEDATION TIME: 60 minutes CONTRAST: 1.) 115 cc Omnipaque (iohexol) 350 MEDICATION(S): 1.) 1 mg midazolam (Versed) IV 2.) 50 mcg fentanyl (Sublimaze) IV DEVICE(S): 1.) Portal vein [id number] [employer] REPRESENTATIVE balloon PROCEDURE : 1. Ultrasound-guided puncture of the right internal jugular vein 2. Conscious sedation with continuous EKG and Oximetry monitoring. 3. Recanalization of occluded TIPS 4. 10 mm balloon angioplasty of occluded TIPS 5. Portal venogram 6. Pullback pressure measurements from the main portal vein to the right atrium The risks, benefits and alternatives to the procedure were explained and verbal and written consent w as obtained. The site was prepped in sterile fashion. Full sterile technique was used, including ca p, mask, sterile gloves and gown and a large sterile sheet. Hand hygiene and 2% chlorhexidine and/or betadine/alcohol prep was utilized per protocol for cutaneous antisepsis. The skin and subcutaneous tissues were infiltrated with local anesthetic solution. Ultrasound evaluation of the right neck demonstrated a patent internal jugular vein. Single image was obtained and placed in PACS archive. Micropuncture needle was advanced into the right internal jugul ar vein under direct guidance and subsequently exchanged for a 7 Tajik sheath. 4 Tajik Thompson cathet er and Glidewire with subsequent advanced into the intrahepatic IVC and following multiple manipulati ons successfully advanced through the occluded TIPS shunt into the main portal vein. Hand-injection v enogram was then performed demonstrating a massively dilated portal vein with occlusion of the TIPS. Next, a Soliman wire was advanced into the splenic vein and the portal vein was dilated with 10 x 80 mm Electric Organ Checker balloon. Following multiple overlapping balloon dilatations a venogram was performed. There was a waist in the balloon although some resistance was noted in the hepatic venous end. This demonst rated patency of the portal vein with flow to the right atrium. Next, the right pressure measurements were obtained from the main portal vein to the right atrium demonstrating an approximately 13 mmHg g radient with the largest gradient noted in the hepatic venous portion of the stent. Therefore, additi onal dilatations were performed on the hepatic vein portion of the stent and followup pressure measur ements demonstrated improvement of the gradient to approximately 8 mmHg. Therefore, the procedure was terminated at this time. Wires and catheters were removed. The puncture site was closed with manual pressure and hemostasis was obtained. The patient tolerated the procedure well and there were no complications. Conscious sedation was performed with the prescribed dosages and duration as above in the presence of an independent trained radiology nurse to assist in the monitoring of the patient. EKG and oximetry remained stable throughout the procedure. FINDINGS: There is a right hepatic vein to right portal vein TIPS shunt which is occluded. This was successfull y recanalized and subsequently balloon angioplasty with final pressure gradient of [address] enosis at the hepatic venous end. No significant varices demonstrated following TIPS revision. Pressures (mmHg): MPV - 25 and 23 Portal end - 27 and 25 Mid - 25 and 25 HV end - 16 and 14 Right Heart - 12 and 14 CONCLUSION: 1. Occluded right hepatic vein to right portal vein TIPS shunt. 2. Technically successful recannulization and balloon angioplasty of the TIPS shunt with a good angio graphic result. Final mean pressure gradient of 8 mmHg. Plan: Patient will require new baseline ultrasound TIPS evaluation Evangelist Cornell MD on March 28, 2017 at 12:53 Board Certified Radiologist. This report was verified electronically.
--- NOTE | 2017-03-28 14:28 | HHI.GIFU ---
Subjective Remarks Pt resting in bed. Admits left side abd pain. No n/v. Per palliative care told him he was not candidate for liver transplant. Copious liquid stool. Objective Vitals I&O Vital Signs Date Time Temp Pulse Resp B/P Pulse Ox O2 Delivery O2 Flow Rate FiO2 03/28/17 11:56 98.4 85 19 124/85 98 03/28/17 10:42 Nasal Cannula 2.00 03/28/17 08:00 Nasal Cannula 2.00 03/28/17 08:00 71 03/28/17 08:00 98.0 72 18 116/58 96 03/28/17 04:00 97.2 74 20 114/57 96 03/28/17 00:00 97.4 74 20 125/58 96 03/27/17 20:15 Nasal Cannula 2.00 03/27/17 20:01 76 03/27/17 20:00 Nasal Cannula 2.00 03/27/17 20:00 97.3 76 20 115/59 96 03/27/17 18:05 77 20 114/53 96 03/27/17 17:35 96 Nasal Cannula 2.00 03/27/17 17:35 70 20 127/56 96 03/27/17 17:05 70 20 125/88 96 03/27/17 16:30 81 20 108/51 95 I/O 03/27/17 03/27/17 03/27/17 03/28/17 03/28/17 03/28/17 07:00 15:00 23:00 07:00 15:00 23:00 Intake Total 0 ml 426 ml 100 ml Output Total 200 ml 300 ml 650 ml 400 ml Balance -200 ml 126 ml -650 ml -300 ml Intake Oral 0 ml 100 ml IV Total 426 ml Output Urine Total 200 ml 300 ml 650 ml 400 ml # Bowel Movements 0 2 0 Laboratory Laboratory Tests Test 03/27/17 23:15 Ammonia 88 Imaging Last Impressions Abdomen/Pelvis CT 03/24/17 0000 Signed Impressions: Service Date/Time: Friday, March 24, 2017 19:24 - CONCLUSION: 1. Cirrhotic appearing liver with TIPS catheter in place. 2. Moderate splenomegaly. 3. Moderate amount of ascitic fluid. 4. Cholelithiasis with 2 small calcified gallstones and no wall thickening or inflammatory change. 5. Small effusions and mild consolidation in the posterior lung bases. Raúl Butts MD Liver Ultrasound 03/23/17 Signed Impressions: Service Date/Time: Thursday, March 23, 2017 19:11 - CONCLUSION: TIPS shunt does not appear to be patent. Michael Marsh MD FACR Abdomen X-Ray 03/23/17 Signed Impressions: Service Date/Time: Thursday, March 23, 2017 17:24 - CONCLUSION: Minimally dilated air-filled loops of small bowel may reflect very mild adynamic ileus versus developing partial small bowel obstruction. Evangelist Cornell MD Chest CT 03/22/17 Signed Impressions: Service Date/Time: March 08:41 - CONCLUSION: 1. Bilateral lower lobe consolidation may reflect atelectasis or aspiration. 2. Scattered subtle patchy ground glass opacities in the right upper lobe may reflect volume loss although developing infection cannot be excluded. 3. Numerous nonspecific subcentimeter mediastinal nodes which do not meet CT size criteria but may have contributed to widened mediastinum on chest radiograph. Although differential considerations include both benign and malignant etiologies an infectious/inflammatory process is favored. 4. Prominence of the main pulmonary artery in this patient with cirrhosis and TIPS consistent with pulmonary artery hypertension. 5. Trace right pleural effusion and trace ascites in the visualized upper abdomen. Evangelist Cornell MD Head CT 03/20/17637 Signed Impressions: Service Date/Time: Monday, March 20, 2017 07:05 - CONCLUSION: 1. Right maxillary sinus mucosal thickening. 2. Remote right frontal infarct. Yehuda Oro MD Chest X-Ray 03/20/17637 Signed Impressions: Service Date/Time: Monday, March 20, 2017 08:06 - CONCLUSION: Left lower lobe consolidation, apparent widening of the superior mediastinal contour which can be further evaluated with CT chest with contrast if felt clinically warranted. Yehuda Oro MD Neck CTA 03/20/17 Signed Impressions: Service Date/Time: Monday, March 20, 2017 07:28 - CONCLUSION: 1. No evidence for hemodynamically significant stenosis of either carotid artery. Yehuda Oro MD Maxillofacial CT 03/20/17 Signed Impressions: Service Date/Time: Monday, March 20, 2017 07:02 - CONCLUSION: 1. There is a fracture the right maxillary sinus wall and right orbital floor which are felt to be nonacute with evidence of previous surgery and periosteal thickening. 2. Small air-fluid level left sphenoid sinus, and moderate circumferential mucosal thickening in the right maxillary sinus. Yehuda Oro MD Head CTA 03/20/17 0000 Signed Impressions: Service Date/Time: Monday, March 20, 2017 07:28 - CONCLUSION: 1. Normal intracranial vasculature. 2. Pulmonary consolidation and effusions are noted. Yehuda Oro MD Cervical Spine CT 03/20/17 0000 Signed Impressions: Service Date/Time: Monday, March 20, 2017 07:06 - CONCLUSION: Degenerative changes are noted without fracture or listhesis. Bilateral upper lobe consolidative opacity. Yehuda Oro MD Physical Exam HEENT: PERRL; normocephalic; atraumatic; no jaundice. CHEST: CTA CARDIAC: RRR ABDOMEN: Semifirm, distended, TTP left side, dull; bowel sounds are present in all four quadrants. EXTREMITIES: No clubbing, cyanosis; edema, erythema BLE SKIN: no rash; no jaundice. 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 He states that he has been having issues with abdominal pain for the last few weeks , all left sided pain which is constant, no changes in the pain with food intake. Liver US (03/23) ---> No flow through TIPS shunt, but patent portal vein, hepatic artery. CT Abd/pelvis (03/24) ---> revealed cirrhotic appearing liver with TIPS catheter in place, moderate splenomegaly, moderate amount of ascitic fluid, cholelithiasis with 2 small calcified gallstones and no wall thickening or inflammatory change, small effusions and mild consolidation in the posterior lung bases. [facility] attempted bedside US for ascites removal but was unable to find a safe bedside pocket of ascites to tap for diagnosis and rule out SBP. GI was consulted for further evaluation of his abdominal pain. Splenic capsular pain is a possible cause of his abdominal pain. Pt is on empiric Zosyn to cover for possible SBP. s/p TIPS revision. Pursuing hospice. 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 Labs at admission TBili 1.6, AST 79, ALT 34, AlkPhos 160. Pts LFTs have been slowly increasing since admission. No reported alcohol use in many years. Patient was reportedly assessed at the [facility] in [place] on 3 separate occasions and has reportedly been told that he is not a candidate for transplant. - Hepatitis C. Pt was reportedly diagnosed with liver disease and hepatitis C about 3 years ago, and has been treated with Harvoni earlier this year which was reportedly curative. - Hepatic Encephalopathy. Pt reports that his dose of Lactulose was decreased a few weeks ago to 2-3 doses per day. He states that prior to that he had been taking Lactulose 6 times per day. He follows with a GI physician in [place] where he resides. His labs at admission revealed serum ammonia level of 312. Lactulose and rifaximin were restarted/continued. Repeat today is 88. - Coagulopathy, likely secondary to ESLD. - Possible Seizure-like activity prior to admission. EEG showed background slowing, no active seizure like events. - VDRF/MRSA CAP. Pt states that he has been coughing up brown sputum for about the last week. Pt is on Linezolid for 7 days for MRSA in the sputum. management per attending. PLAN: - await hospice consult - Cont. Zosyn for possible SBP - Cont. Xifaxin 550mg po BID - Cont. Lactulose 30mL QID - Monitor CBC, CMP, PT/INR, Ammonia level - Full liquid diet as tolerated - Supportive care - This pt seen by myself and Dr Guaman and this note is written on his behalf Leigha Leger Mar 28, 2017 14:28
[2017-03-29] VITALS (7 sets, daily range): BP systolic 122–140; BP diastolic 60–63; PULSE 75–90; RESP 18; TEMP 97.7–98.4; O2SAT 92–97
[2017-03-29] MEDS: CHLORHEXIDINE GLUCONATE 2 % 1 PACK (2 CLOTHS) TOP SCH (04:00)
[2017-03-29] MEDS: PIPERACIL-TAZO 4.5 GM PREMIX 100 ML IV SCH ×3 (04:19→14:12)
[2017-03-29] MEDS: LINEZOLID 600 MG PREMIX 300 ML IV SCH ×2 (04:20→16:01)
[2017-03-29] MEDS: HYDROmorphone HCL PF 1 MG/ML VIAL IV PUSH PRN ×4 (04:23→18:24)
[2017-03-29] MEDS: RIFAXIMIN 200 MG TAB PO SCH ×2 (04:27→14:11)
[2017-03-29] MEDS: INSULIN NovoLIN REGULAR SUPPLEMENTAL SCALE SQ SCH ×3 (06:00→17:54)
[2017-03-29] MEDS: CHLORHEXIDINE 0.12% (ORAL KIT) 15 ML CUP MT SCH (08:00)
--- NOTE | 2017-03-29 09:23 | HHI.PR ---
Subjective Remarks Improved stability recently. Hospice consult pending. Repeat liver ultrasound pending. Patient has preference for discharge to rehabilitation in his current situation. This will be discussed further with his . Ammonia levels have been stable for the past 2 days. Objective Vital Signs Date Time Temp Pulse Resp B/P Pulse Ox O2 Delivery O2 Flow Rate FiO2 03/29/17 08:00 97.7 90 18 140/63 93 03/29/17 04:00 98.3 79 18 129/60 92 03/29/17 00:00 97.8 81 18 122/61 94 03/28/17 20:29 Room Air 03/28/17 20:07 81 03/28/17 20:00 98.0 83 16 141/66 93 03/28/17 18:06 98 Nasal Cannula 2.00 03/28/17 16:00 98.0 86 18 164/72 98 03/28/17 11:56 98.4 85 19 124/85 98 03/28/17 10:42 Nasal Cannula 2.00 I/O 03/28/17 03/28/17 03/28/17 03/29/17 03/29/17 03/29/17 07:00 15:00 23:00 07:00 15:00 23:00 Intake Total 100 ml 360 ml 240 ml 120 ml Output Total 400 ml 500 ml 400 ml 550 ml Balance -300 ml -140 ml -160 ml -430 ml Intake Oral 100 ml 360 ml 240 ml 120 ml Output Urine Total 400 ml 500 ml 400 ml 550 ml # Bowel Movements 0 1 2 3 Result Diagram: 03/27/1742903/27/17 043 Procedures Endotracheal intubation and Extubation. Objective Remarks GENERAL: NAD, A&Ox2 HEAD: Normocephalic. NECK: Supple, trachea midline. No lymphadenopathy. EYES: No scleral icterus. No injection or drainage. CARDIOVASCULAR: Regular rate and rhythm without murmurs, gallops, or rubs. RESPIRATORY: Breath sounds equal bilaterally. No accessory muscle use. GASTROINTESTINAL: Abdomen soft, non-tender, nondistended. MUSCULOSKELETAL: No cyanosis, or edema. SKIN: Warm and dry. NEURO: No focal neurological deficitis. Global weakness. A/P Problem List: (1) hepatic encephalopathy Assessment and Plan Assessment and Plan 57-year-old male with end-stage liver disease. Admitted secondary to severe hepatic encephalopathy acquiring intubation. Improvement through time and with treatments. Liver ultrasound to determine improvement in TIPS. Ammonia level in a.m. Considering discharge to [facility] facility. TIPS occlusion Resolved with IR intervention yesterday Hepatic Encephalopathy End-stage liver disease Improved on treatment. Monitor for stability. Avoid sedatives Palliative care following Hospice consulted Community-acquired pneumonia (MRSA) Bronchodilators Mucomyst Incentive spirometry Continue antibiotics (Zosyn, the Linezolid) Clinically improved Urinary retention Urine remains blood-tinged Delay void trial tomorrow Follow urine output Continue Flomax Pancytopenia Thrombocytopenia Coagulopathy These are secondary to liver disease Treatment liver disease and manage DVT Prophylaxis SCDs Code Status Full Code, considering DO NOT RESUSCITATE Discharge Planning Follow for stability of ammonia level. Tentative plan for discharge to [facility] facility. Carlos Flannery MD Mar 29, 2017 09:22
[2017-03-29] MEDS: LACTULOSE SYRUP 20 GM/30 ML CUP PO SCH ×4 (09:33→17:54)
[2017-03-29] MEDS: TAMSULOSIN HCL 0.4 MG CAP PO SCH (09:33)
[2017-03-29] MEDS: FAMOTIDINE 20 MG TAB PO SCH (09:33)
[2017-03-29 10:38] LABS: AUTOMATED NEUTROPHIL # 1.2 TH/MM3 (1.8-7.7); BASOPHIL % 0.7 % (0.0-2.0); EOSINOPHIL # 0.1 TH/MM3 (0-0.4); EOSINOPHIL % 5.5 % (0.0-4.0); HEMATOCRIT 22.7 % (39.0-51.0); LYMPHOCYTE # 0.2 TH/MM3 (1.0-4.8); MEAN CELL VOLUME 87.7 FL (80.0-100.0); MEAN CORPUSCULAR HEMOGLOBIN 28.4 PG (27.0-34.0); MEAN CORPUSCULAR HGB CONC 32.4 % (32.0-36.0); MONO % 6.9 % (0.0-8.0); NEUT % 72.9 % (16.0-70.0); PLATELET COUNT 25 TH/MM3 (150-450); RED BLOOD COUNT 2.59 MIL/MM3 (4.50-5.90); RED CELL DISTRIBUTION WIDTH 17.6 % (11.6-17.2); WHITE BLOOD COUNT 1.7 TH/MM3 (4.0-11.0)
--- NOTE | 2017-03-29 10:41 | RADRPT ---
EXAM DATE/TIME: 03/29/2017 08:30 [place] COMPARISON: US ABDOMEN - LIVER, March 23, 2017, 19:11. TIPS REVISION, March 27, 2017, 13:35. INDICATIONS : TIPS patency. MEDICAL HISTORY : Arthritis. Hepatitis C. Seizures. Syncope. Apnea. Dyspnea. Blood transfusion. SURGICAL HISTORY : TIPS procedure. ENCOUNTER: Subsequent ACUITY: 4-6 days PAIN SCORE: 3/10 LOCATION: Bilateral upper quadrant MEASUREMENTS: LIVER: 16.5 cm length COMMON DUCT: 1 mm RIGHT KIDNEY: 11.9 x 6.0 x 6.0 cm SPLEEN: 23.6 cm length FINDINGS: Bowel gas limits the study. LIVER: The liver has a heterogeneous echotexture. No mass or ductal dilatation. There is hepatopedal flow wi thin the portal vein. A TIPS shunt is seen and is now patent. No significant increase in velocity is seen to suggest recurrent stenosis. The main portal vein velocity is 25 cm/s, Intra-stent TIPS veloci ty 129 cm/s, and hepatic venous side of the shunt 104 cm/s. Appropriate flow is seen within all 3 hep atic veins. Hepatic artery is patent. COMMON DUCT: No intraluminal mass or stone visualized. GALLBLADDER: The gallbladder is somewhat limited evaluation due to bowel gas. Echogenic non-shadowing material is seen layering within the gallbladder consistent with sludge. Gallbladder wall is limited but appears at the upper limits of normal. PANCREAS: The visualized portions are within normal limits. RIGHT KIDNEY: No hydronephrosis, stone or mass. SPLEEN: Enlarged without a focal lesion. AORTA: Non aneurysmal. IVC: Within normal limits. CONCLUSION: 1. Interval reestablishment of flow through the TIPS shunt. Velocities as detailed above. 2. Heterogeneous liver. 3. Gallbladder sludge. 4. Small volume ascites. 5. Splenomegaly. Moo Bryan Jr., MD on March 29, 2017 at 10:28 Board Certified Radiologist. This report was verified electronically.
[2017-03-29 10:42] LABS: HEMO FLAGS AUTO DIFF
[2017-03-29 11:06] LABS: ANION GAP 9 MEQ/L (5-15); AST (GOT) 40 U/L (15-37); BICARBONATE 26.3 MEQ/L (21.0-32.0); BLOOD UREA NITROGEN 7 MG/DL (7-18); CHLORIDE 109 MEQ/L (98-107); GLOMERULAR FILTRATION RATE 149 ML/MIN (>89); POTASSIUM 3.2 MEQ/L (3.5-5.1); SODIUM (NA) 144 MEQ/L (136-145)
[2017-03-29 11:07] LABS: ALT (GPT) 23 U/L (12-78)
[2017-03-29 11:09] LABS: ALKALINE PHOSPHATASE 75 U/L (45-117); TOTAL BILIRUBIN ADULT 3.1 MG/DL (0.2-1.0)
[2017-03-29 11:54] LABS: BANDS 1 % (0-6); EOSINOPHILS 5 % (0-4); NEUTROPHIL # MANUAL DIFF 1.5 TH/MM3 (1.8-7.7); POLYS (SEG NEUTROPHILS) 89 % (16-70); WBC DIFF SAMPLE 100
[2017-03-29 11:57] LABS: KERATOCYTES OCC (NORMAL); OVALOCYTES 1+ (NORMAL); PLATELET ESTIMATE SMEAR LOW (NORMAL); PLATELET MORPHOLOGY NORMAL (NORMAL)
[2017-03-29 11:58] LABS: SCAN/DIFF FINAL DIFF MANUAL
--- NOTE | 2017-03-29 13:53 | HHI.DS ---
Discharge Summary Admission Date Mar 20, 2017 at 07:48 Discharge Date: Mar 29, 2017 Admitting Diagnosis altered mental status, elevated ammonia level, lactic acidosis (1) hepatic encephalopathy (2) end-stage liver disease, currently with MELD score 14 Procedures Revision of TIPS (resolution of occlusion) Brief History - From Admission This is a 57-year-old male who is brought in by EMS for altered mental status. According to the EMS report, the patient has a history of end-stage liver disease and was talking to his when he became acutely unresponsive and fell forward onto the ground. EMS attempted intubation was unsuccessful. He was brought in the emergency department where he was successfully intubated. CT CT angiogram head and neck are negative for acute stroke, although he does have evidence of old prior ischemic stroke in the right frontal lobe. Laboratory values are significant for a lactate of 7, and ammonia of 300. White count is normal. Patient does have laboratory evidence of end-stage liver disease including elevated INR, low albumin, thrombocytopenia. In talking with his , she states that he fell to the ground and had rhythmic shaking like movements. She states that he has been evaluated on multiple occasions for liver transplantation and the center that he was evaluated and did not feel that he was a good transplant candidate at this time. Unfortunately patient is unresponsive and intubated and cannot provide additional history. His does state that he has had a prior TIPS procedure and she is unclear whether or not he has ever had hepatic encephalopathy in the past CBC/BMP: 03/29/17 1010 03/29/17 1010 Significant Findings Laboratory Tests Test 03/27/17 03/27/17 03/28/17 03/29/17 04:30 23:15 21:26 10:10 White Blood Count 2.1 TH/MM3 1.7 TH/MM3 (4.0-11.0) (4.0-11.0) Red Blood Count 2.51 MIL/MM3 2.59 MIL/MM3 (4.50-5.90) (4.50-5.90) Hemoglobin 7.1 GM/DL 7.3 GM/DL (13.0-17.0) (13.0-17.0) Hematocrit 21.8 % 22.7 % (39.0-51.0) (39.0-51.0) Platelet Count 33 TH/MM3 25 TH/MM3 (150-450) (150-450) Prothrombin Time 17.1 SEC (9.8-11.6) Activated Partial 36.1 SEC Thromboplast Time (24.3-30.1) Potassium Level 3.4 MEQ/L 3.2 MEQ/L (3.5-5.1) (3.5-5.1) Chloride Level 110 MEQ/L 109 MEQ/L (98-107) (98-107) Blood Urea Nitrogen 6 MG/DL (7-18) Calcium Level 7.7 MG/DL 7.6 MG/DL (8.5-10.1) (8.5-10.1) Total Bilirubin 2.9 MG/DL 3.1 MG/DL (0.2-1.0) (0.2-1.0) Direct Bilirubin 1.5 MG/DL (0.0-0.2) Indirect Bilirubin 1.4 MG/DL (0.0-0.8) Aspartate Amino Transf 48 U/L (15-37) 40 U/L (15-37) (AST/SGOT) Total Protein 5.5 GM/DL 5.4 GM/DL (6.4-8.2) (6.4-8.2) Albumin 2.0 GM/DL 1.9 GM/DL (3.4-5.0) (3.4-5.0) Ammonia 88 MCMOL/L 67 MCMOL/L (11-32) (11-32) Red Cell Distribution Width 17.6 % (11.6-17.2) Mean Platelet Volume 6.9 FL (7.0-11.0) Neutrophils (%) (Auto) 72.9 % (16.0-70.0) Eosinophils (%) (Auto) 5.5 % (0.0-4.0) Neutrophils # (Auto) 1.2 TH/MM3 (1.8-7.7) Lymphocytes # (Auto) 0.2 TH/MM3 (1.0-4.8) Neutrophils % (Manual) 89 % (16-70) Lymphocytes % 3 % (9-44) Eosinophils % 5 % (0-4) Neutrophils # (Manual) 1.5 TH/MM3 (1.8-7.7) Platelet Estimate LOW (NORMAL) Ovalocytes 1+ (NORMAL) Creatinine 0.56 MG/DL (0.60-1.30) Random Glucose 140 MG/DL (74-106) Test 03/29/17 10:20 Ammonia 75 MCMOL/L (11-32) Hospital Course Mr. Trinh is a 57 year old male. he has end state liver disease and was admitted with life threatening hepatic encephalopathy (>300). Intubation was needed. With treatment and with TIPS occlusion recalculation the patient has improved. 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 His present state is not longer immediately life threatening, but he retains is terminal state. Family and patient have agreed to hospice care from here forward. Plan to discharge to inpatient hospice today. Pt Condition on Discharge: Deteriorating Discharge Disposition: Hospice/Med Facility Discharge Time: > 30 minutes Discharge Instructions DIET: Follow Instructions for: As Tolerated, No Restrictions Activities you can perform: Continue Bedrest Carlos Flannery MD Mar 29, 2017 13:53
--- NOTE | 2017-03-29 13:57 | HHI.HCPN ---
Reason for visit a. To assist with evaluation and management of symptoms including: Encephalopathy, pain (neuropathic, gouty) b. To assist medical decision maker(s) with: better understanding of current medical conditions; weighing benefits/burdens of medical treatment options; making medical treatment decisions. . Subjective/Interval History INTERVAL NOTE: Pt is more confused today, thought about going to rehab. I clarify goals of care and hospice again, and he was amenable. I spoke with spouse and she was amanable to transfer to [facility] for pain management. I review with her that although the ultimate goal is to aim for a hospice to hospice transfer to [facility], anything could happen and he possibly can decline before that can take place. Prognosis is days to weeks, but always he is suceptible to sudden decline. I also anticipate he will progressively get more and more confuse. Amenable to comfort meds. Pt amenable for administration medication for pain and comfort. case d/w with attending physician. Advance Directives Living Will: Never completed Health Care Surrogate: Never completed Durable Power of Office Cashier: Never completed Objective Vital Signs Date Time Temp Pulse Resp B/P Pulse Ox O2 Delivery O2 Flow Rate FiO2 03/29/17 12:06 94 Nasal Cannula 2.00 03/29/17 12:00 98.0 86 18 137/62 97 03/29/17 08:00 97.7 90 18 140/63 93 03/29/17 04:00 98.3 79 18 129/60 92 03/29/17 00:00 97.8 81 18 122/61 94 03/28/17 20:29 Room Air 03/28/17 20:07 81 03/28/17 20:00 98.0 83 16 141/66 93 03/28/17 18:06 98 Nasal Cannula 2.00 03/28/17 16:00 98.0 86 18 164/72 98 Intake & Output 03/29/17 03/29/17 07:00 19:00 Intake Total 360 ml Output Total 950 ml Balance -590 ml Intake Oral 360 ml Output Urine Total 950 ml # Bowel Movements 5 Physical Exam CONSTITUTIONAL/GENERAL: This is an adequately nourished patient, complains of some discomfort of elbow. alert and oriented, but fatigued. NECK: Trachea midline. Supple, nontender. No palpable thyroid enlargement or nodularity. CARDIOVASCULAR: Regular rate and rhythm without murmurs, gallops, or rubs. No JVD. Peripheral pulses symmetric. RESPIRATORY/CHEST: Symmetric, unlabored respirations. Clear to auscultation. Breath sounds equal bilaterally. No wheezes, rales, or rhonchi. GASTROINTESTINAL: Abdomen soft, tenderness on left lower quadrant. No hepato- splenomegaly, or palpable masses. No guarding. Bowel sounds present. GENITOURINARY: Without palpable bladder distension. Cruz catheter in place. MUSCULOSKELETAL: Extremities without clubbing, cyanosis, or edema. right elbow joint tenderness NEUROLOGICAL: alerted oriented x 3 and moves all ext. PSYCHIATRIC: fatigued . Diagnostic Tests Laboratory Laboratory Tests Test 03/27/17 03/27/17 03/28/17 03/29/17 04:30 23:15 21:26 10:10 White Blood Count 2.1 TH/MM3 1.7 TH/MM3 (4.0-11.0) (4.0-11.0) Red Blood Count 2.51 MIL/MM3 2.59 MIL/MM3 (4.50-5.90) (4.50-5.90) Hemoglobin 7.1 GM/DL 7.3 GM/DL (13.0-17.0) (13.0-17.0) Hematocrit 21.8 % 22.7 % (39.0-51.0) (39.0-51.0) Mean Corpuscular Volume 86.6 FL 87.7 FL (80.0-100.0) (80.0-100.0) Mean Corpuscular Hemoglobin 28.1 PG 28.4 PG (27.0-34.0) (27.0-34.0) Mean Corpuscular Hemoglobin 32.4 % 32.4 % Concent (32.0-36.0) (32.0-36.0) Red Cell Distribution Width 17.2 % 17.6 % (11.6-17.2) (11.6-17.2) Platelet Count 33 TH/MM3 25 TH/MM3 (150-450) (150-450) Mean Platelet Volume 7.3 FL 6.9 FL (7.0-11.0) (7.0-11.0) Prothrombin Time 17.1 SEC (9.8-11.6) Prothromb Time International 1.5 RATIO Ratio Activated Partial 36.1 SEC Thromboplast Time (24.3-30.1) Sodium Level 143 MEQ/L 144 MEQ/L (136-145) (136-145) Potassium Level 3.4 MEQ/L 3.2 MEQ/L (3.5-5.1) (3.5-5.1) Chloride Level 110 MEQ/L 109 MEQ/L (98-107) (98-107) Carbon Dioxide Level 26.9 MEQ/L 26.3 MEQ/L (21.0-32.0) (21.0-32.0) Anion Gap 6 MEQ/L (5-15) 9 MEQ/L (5-15) Blood Urea Nitrogen 6 MG/DL (7-18) 7 MG/DL (7-18) Creatinine 0.66 MG/DL 0.56 MG/DL (0.60-1.30) (0.60-1.30) Estimat Glomerular Filtration 124 ML/MIN 149 ML/MIN Rate (>89) (>89) Random Glucose 89 MG/DL 140 MG/DL (74-106) (74-106) Calcium Level 7.7 MG/DL 7.6 MG/DL (8.5-10.1) (8.5-10.1) Total Bilirubin 2.9 MG/DL 3.1 MG/DL (0.2-1.0) (0.2-1.0) Direct Bilirubin 1.5 MG/DL (0.0-0.2) Indirect Bilirubin 1.4 MG/DL (0.0-0.8) Aspartate Amino Transf 48 U/L (15-37) 40 U/L (15-37) (AST/SGOT) Alanine Aminotransferase 25 U/L (12-78) 23 U/L (12-78) (ALT/SGPT) Alkaline Phosphatase 84 U/L (45-117) 75 U/L (45-117) Total Protein 5.5 GM/DL 5.4 GM/DL (6.4-8.2) (6.4-8.2) Albumin 2.0 GM/DL 1.9 GM/DL (3.4-5.0) (3.4-5.0) Ammonia 88 MCMOL/L 67 MCMOL/L (11-32) (11-32) Neutrophils (%) (Auto) 72.9 % (16.0-70.0) Lymphocytes (%) (Auto) 14.0 % (9.0-44.0) Monocytes (%) (Auto) 6.9 % (0.0-8.0) Eosinophils (%) (Auto) 5.5 % (0.0-4.0) Basophils (%) (Auto) 0.7 % (0.0-2.0) Neutrophils # (Auto) 1.2 TH/MM3 (1.8-7.7) Lymphocytes # (Auto) 0.2 TH/MM3 (1.0-4.8) Monocytes # (Auto) 0.1 TH/MM3 (0-0.9) Eosinophils # (Auto) 0.1 TH/MM3 (0-0.4) Basophils # (Auto) 0.0 TH/MM3 (0-0.2) CBC Comment AUTO DIFF Differential Total Cells 100 Counted Neutrophils % (Manual) 89 % (16-70) Band Neutrophils % 1 % (0-6) Lymphocytes % 3 % (9-44) Monocytes % 2 % (0-8) Eosinophils % 5 % (0-4) Neutrophils # (Manual) 1.5 TH/MM3 (1.8-7.7) Differential Comment FINAL DIFF MANUAL Platelet Estimate LOW (NORMAL) Platelet Morphology Comment NORMAL (NORMAL) Ovalocytes 1+ (NORMAL) Keratocytes OCC (NORMAL) Test 03/29/17 10:20 Ammonia 75 MCMOL/L (11-32) Result Diagram: 03/29/17 1010 03/29/17 1010 Procedures INTUBATION 03/20/17 . Assessment and Plan Disease Oriented Problem List: (1) end-stage liver disease, currently with MELD score 14 (2) remote history of alcohol abuse, reportedly none in 25 years (3) history of hepatitis C, s/p Harvoni treatment (4) hepatic encephalopathy (5) evaluated at [facility] but felt to NOT be a liver transplant candidate (6) history of chronic pain syndrome (and possible drug-seeking behavior in the past per ) (7) fall with right shoulder fracture, September 2016 (8) closed head injury, with abrasion/contusion of forehead (9) apparent seizure, with no history of prior seizures Symptom Scale: (1) pain 0-10 Scale: 9 (2) encephalopathy 0-10 Scale: Unable to quantify Pertinent Non-Medical Issues Psychosocial: Disabled, , has 3 longtime estranged children, 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 Spiritual: The patient was raised [employer], but is now quite spiritual and connected to a mandaeism baptist. The patient's has requested third miller visits here at the hospital. Legal: The patient lacks capacity for decision-making at this time. It is possible that he will regain that capacity; in the meantime, the patient's spouse Lo is the decision-maker by proxy. Ethical issues impacting care: None . Important Contacts : Lo Trinh . Prognosis The patient's overall prognosis is poor. He has ES Liver failure and unlikely to be a candidate for transplant. Worsening functional status. Spoke with GI who is supportive of transition to comfort measures if goals of care of pt is comfort only.. He has significant liver disease, overall weakness/debility, is not a candidate for transplantation. Is appropriate for hospice. . Code Status: No Code Plan * DO NOT RESUSCITATE * DECISION-MAKING: Capacity fluctuates, and he is more confuse today. Although confuse, he was amenable to transfer to hospice. Spouse amenable to enroll in hospice. * GOALS: I have called GI physician, and have reviewed, pt most likely is not a candidate for liver transplant, given worsening functional status. Would be supportive of transition to comfort if goals if pt's goals are comfort oriented. Pt is more confused today, thought about going to rehab. I clarify goals of care and hospice again, and he was amenable. I spoke with spouse and she was amanable to transfer [facility]. I review with her that although the ultimate goal is to aim for a hospice to hospice transfer to [facility], anything could happen and he possibly can decline before that can take place. Prognosis is days to weeks, but always he is suceptible to sudden decline. I also anticipate he will progressively get more and more confuse. Amenable to comfort meds. Pt amenable for administration medication for pain and comfort. * SYMPTOMS: Pain, R elbow pain and abdominal pain, continue dilaudid and monitor. * Palliative Care will continue to follow the patient during this hospitalization. d/w with attending physician Time Spent Total Floor Time (mins): 40 Face to Face Time (mins): 35 >50% Counseling/Coord of Care: Yes Attestation To help prompt me to consider important information that might be impacting today's encounter and assessment, information from prior notes written by myself or my colleagues may have been "brought forward" into today's note. My signature on this note, however, is an attestation that I personally performed the exam, history, and/or decision-making noted today, and, unless otherwise indicated, the interactions with patient, family, and staff as well as the review of records all occurred today. I also attest that the listed assessment and stated plan reflect my best clinical judgment today based on the combination of historical information, prior notes, and today's exam/ interactions. When time spent is documented, it refers only to time spent today by the signer, or if indicated, combined time spent today by collaborating physician/nurse practitioner. Jean-Pierre Tsai MD Mar 29, 2017 13:57
--- NOTE | 2017-03-29 17:33 | HHI.GIFU ---
Subjective Remarks Pt resting in bed. "My butt hurts." Denies n/v. Objective Vitals I&O Vital Signs Date Time Temp Pulse Resp B/P Pulse Ox O2 Delivery O2 Flow Rate FiO2 03/29/17 16:04 94 2.00 03/29/17 16:00 98.4 83 18 130/60 94 03/29/17 12:06 94 Nasal Cannula 2.00 03/29/17 12:00 98.0 86 18 137/62 97 03/29/17 08:00 97.7 90 18 140/63 93 03/29/17 04:00 98.3 79 18 129/60 92 03/29/17 00:00 97.8 81 18 122/61 94 03/28/17 20:29 Room Air 03/28/17 20:07 81 03/28/17 20:00 98.0 83 16 141/66 93 03/28/17 18:06 98 Nasal Cannula 2.00 I/O 03/28/17 03/28/17 03/28/17 03/29/17 03/29/17 03/29/17 07:00 15:00 23:00 07:00 15:00 23:00 Intake Total 100 ml 360 ml 240 ml 120 ml 360 ml Output Total 400 ml 500 ml 400 ml 550 ml 753 ml Balance -300 ml -140 ml -160 ml -430 ml -393 ml Intake Oral 100 ml 360 ml 240 ml 120 ml 360 ml Output Urine Total 400 ml 500 ml 400 ml 550 ml 750 ml Stool Total 3 ml # Bowel Movements 0 1 2 3 Laboratory Laboratory Tests Test 03/28/17 03/29/17 03/29/17 21:26 10:10 10:20 Ammonia 67 75 White Blood Count 1.7 Red Blood Count 2.59 Hemoglobin 7.3 Hematocrit 22.7 Mean Corpuscular Volume 87.7 Mean Corpuscular Hemoglobin 28.4 Mean Corpuscular Hemoglobin 32.4 Concent Red Cell Distribution Width 17.6 Platelet Count 25 Mean Platelet Volume 6.9 Neutrophils (%) (Auto) 72.9 Lymphocytes (%) (Auto) 14.0 Monocytes (%) (Auto) 6.9 Eosinophils (%) (Auto) 5.5 Basophils (%) (Auto) 0.7 Neutrophils # (Auto) 1.2 Lymphocytes # (Auto) 0.2 Monocytes # (Auto) 0.1 Eosinophils # (Auto) 0.1 Basophils # (Auto) 0.0 CBC Comment AUTO DIFF Differential Total Cells 100 Counted Neutrophils % (Manual) 89 Band Neutrophils % 1 Lymphocytes % 3 Monocytes % 2 Eosinophils % 5 Neutrophils # (Manual) 1.5 Differential Comment FINAL DIFF MANUAL Platelet Estimate LOW Platelet Morphology Comment NORMAL Ovalocytes 1+ Keratocytes OCC Sodium Level 144 Potassium Level 3.2 Chloride Level 109 Carbon Dioxide Level 26.3 Anion Gap 9 Blood Urea Nitrogen 7 Creatinine 0.56 Estimat Glomerular Filtration 149 Rate Random Glucose 140 Calcium Level 7.6 Total Bilirubin 3.1 Aspartate Amino Transf 40 (AST/SGOT) Alanine Aminotransferase 23 (ALT/SGPT) Alkaline Phosphatase 75 Total Protein 5.4 Albumin 1.9 Imaging Last Impressions Liver Ultrasound 03/29/17 0000 Signed Impressions: Service Date/Time: March 08:30 - CONCLUSION: 1. Interval reestablishment of flow through the TIPS shunt. Velocities as detailed above. 2. Heterogeneous liver. 3. Gallbladder sludge. 4. Small volume ascites. 5. Splenomegaly. Moo Bryan Jr., MD TIPS ([facility] [place]) 03/27/17 0000 Signed Impressions: Service Date/Time: Monday, March 27, 2017 13:35 - CONCLUSION: 1. Occluded right hepatic vein to right portal vein TIPS shunt. 2. Technically successful recannulization and balloon angioplasty of the TIPS shunt with a good angiographic result. Final mean pressure gradient of 8 mmHg. Plan: Patient will require new baseline ultrasound TIPS evaluation Evangelist Cornell MD Abdomen/Pelvis CT 03/24/17 0000 Signed Impressions: Service Date/Time: Friday, March 24, 2017 19:24 - CONCLUSION: 1. Cirrhotic appearing liver with TIPS catheter in place. 2. Moderate splenomegaly. 3. Moderate amount of ascitic fluid. 4. Cholelithiasis with 2 small calcified gallstones and no wall thickening or inflammatory change. 5. Small effusions and mild consolidation in the posterior lung bases. Raúl Butts MD Abdomen X-Ray 03/23/17 0000 Signed Impressions: Service Date/Time: Thursday, March 23, 2017 17:24 - CONCLUSION: Minimally dilated air-filled loops of small bowel may reflect very mild adynamic ileus versus developing partial small bowel obstruction. Evangelist Cornell MD Chest CT 03/22/17 Signed Impressions: Service Date/Time: March 08:41 - CONCLUSION: 1. Bilateral lower lobe consolidation may reflect atelectasis or aspiration. 2. Scattered subtle patchy ground glass opacities in the right upper lobe may reflect volume loss although developing infection cannot be excluded. 3. Numerous nonspecific subcentimeter mediastinal nodes which do not meet CT size criteria but may have contributed to widened mediastinum on chest radiograph. Although differential considerations include both benign and malignant etiologies an infectious/inflammatory process is favored. 4. Prominence of the main pulmonary artery in this patient with cirrhosis and TIPS consistent with pulmonary artery hypertension. 5. Trace right pleural effusion and trace ascites in the visualized upper abdomen. Evangelist Cornell MD Head CT 03/20/17637 Signed Impressions: Service Date/Time: Monday, March 20, 2017 07:05 - CONCLUSION: 1. Right maxillary sinus mucosal thickening. 2. Remote right frontal infarct. Yehuda Oro MD Chest X-Ray 03/20/17637 Signed Impressions: Service Date/Time: Monday, March 20, 2017 08:06 - CONCLUSION: Left lower lobe consolidation, apparent widening of the superior mediastinal contour which can be further evaluated with CT chest with contrast if felt clinically warranted. Yehuda Oro MD Neck CTA 03/20/17 Signed Impressions: Service Date/Time: Monday, March 20, 2017 07:28 - CONCLUSION: 1. No evidence for hemodynamically significant stenosis of either carotid artery. Yehuda Oro MD Maxillofacial CT 03/20/17 Signed Impressions: Service Date/Time: Monday, March 20, 2017 07:02 - CONCLUSION: 1. There is a fracture the right maxillary sinus wall and right orbital floor which are felt to be nonacute with evidence of previous surgery and periosteal thickening. 2. Small air-fluid level left sphenoid sinus, and moderate circumferential mucosal thickening in the right maxillary sinus. Yehuda Oro MD Head CTA 03/20/17 Signed Impressions: Service Date/Time: Monday, March 20, 2017 07:28 - CONCLUSION: 1. Normal intracranial vasculature. 2. Pulmonary consolidation and effusions are noted. Yehuda Oro MD Cervical Spine CT 7/4/17 0000 Signed Impressions: Service Date/Time: Monday, March 20, 2017 07:06 - CONCLUSION: Degenerative changes are noted without fracture or listhesis. Bilateral upper lobe consolidative opacity. Yehuda Oro MD Physical Exam HEENT: PERRL; normocephalic; atraumatic; no jaundice. CHEST: CTA CARDIAC: RRR ABDOMEN: Semifirm, distended, TTP LUQ, dull; bowel sounds are present in all four quadrants. EXTREMITIES: No clubbing, cyanosis; edema, erythema BLE SKIN: no rash; no jaundice. ADVANCE AGENT: lethargic Assessment and Plan Plan ASSESSMENT: - Abdominal pain, pt had complained of abdominal pain following extubation. He states that he has been having issues with abdominal pain for the last few weeks , all left sided pain which is constant, no changes in the pain with food intake. Liver US (03/23) ---> No flow through TIPS shunt, but patent portal vein, hepatic artery. CT Abd/pelvis (03/24) ---> revealed cirrhotic appearing liver with TIPS catheter in place, moderate splenomegaly, moderate amount of ascitic fluid, cholelithiasis with 2 small calcified gallstones and no wall thickening or inflammatory change, small effusions and mild consolidation in the posterior lung bases. [facility] attempted bedside US for ascites removal but was unable to find a safe bedside pocket of ascites to tap for diagnosis and rule out SBP. GI was consulted for further evaluation of his abdominal pain. Splenic capsular pain is a possible cause of his abdominal pain. Pt is on empiric Zosyn to cover for possible SBP. s/p TIPS revision, per US flow restored. Pursuing hospice. 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 Labs at admission TBili 1.6, AST 79, ALT 34, AlkPhos 160. Pts LFTs have been slowly increasing since admission. No reported alcohol use in many years. Patient was reportedly assessed at the [facility] in [place] on 3 separate occasions and has reportedly been told that he is not a candidate for transplant. - Hepatitis C. Pt was reportedly diagnosed with liver disease and hepatitis C about 3 years ago, and has been treated with Harvoni earlier this year which was reportedly curative. - Hepatic Encephalopathy. Pt reports that his dose of Lactulose was decreased a few weeks ago to 2-3 doses per day. He states that prior to that he had been taking Lactulose 6 times per day. He follows with a GI physician in [place] where he resides. His labs at admission revealed serum ammonia level of 312. Lactulose and rifaximin were restarted/continued. Repeat today is 88. - Coagulopathy, likely secondary to ESLD. - Possible Seizure-like activity prior to admission. EEG showed background slowing, no active seizure like events. - VDRF/MRSA CAP. Pt states that he has been coughing up brown sputum for about the last week. Pt is on Linezolid for 7 days for MRSA in the sputum. management per attending. PLAN: - pt pursuing hospice - Cont. Zosyn for possible SBP - Cont. Xifaxin 550mg po BID - Cont. Lactulose 30mL QID - Monitor CBC, CMP, PT/INR, Ammonia level - Full liquid diet as tolerated - Supportive care - GI will sign off. - This pt seen by myself and Dr Guaman and this note is written on his behalf Leigha Leger Mar 29, 2017 17:33
== END 2017-03-29 20:03 | disposition hospice, inpatient (51) | DRG 981 ==
LOC: NEPE 06:33 → NEDA 07:48 → HIME 09:40 → N04A 03-25 15:09
PROVIDERS: ADMIT Hospitalist; ATTEND Hospitalist
PROC: 0T9B70Z Drainage of Bladder with Drainage Device, Via Natural or Artificial Opening (ICD-10-PCS; principal; 2017-03-20)
PROC: 5A1945Z Respiratory Ventilation, 24-96 Consecutive Hours (ICD-10-PCS; 2017-03-20)
PROC: 0BH17EZ Insertion of Endotracheal Airway into Trachea, Via Natural or Artificial Opening (ICD-10-PCS; 2017-03-20)
PROC: 0T9B70Z Drainage of Bladder with Drainage Device, Via Natural or Artificial Opening (ICD-10-PCS; 2017-03-26)
PROC: 067 Lower Veins, Dilation (ICD-10-PCS; 2017-03-27)
DX: K72.90 Hepatic failure, unspecified without coma (principal); J96.01 Acute respiratory failure with hypoxia; J15.212 Pneumonia due to Methicillin resistant Staphylococcus aureus; D61.818 Other pancytopenia; J96.02 Acute respiratory failure with hypercapnia; E72.20 Disorder of urea cycle metabolism, unspecified; R56.9 Unspecified convulsions; I82.890 Acute embolism and thrombosis of other specified veins; E87.2 Acidosis; D68.4 Acquired coagulation factor deficiency; R18.8 Other ascites; T81.89XA Other complications of procedures, not elsewhere classified, initial encounter; E11.65 Type 2 diabetes mellitus with hyperglycemia; D69.59 Other secondary thrombocytopenia; S00.81XA Abrasion of other part of head, initial encounter; S01.81XA Laceration without foreign body of other part of head, initial encounter; W18.30XA Fall on same level, unspecified, initial encounter; Y93.9 Activity, unspecified; Y92.9 Unspecified place or not applicable; Y99.9 Unspecified external cause status; Z86.73 Personal history of transient ischemic attack (TIA), and cerebral infarction without residual deficits; B19.20 Unspecified viral hepatitis C without hepatic coma; M47.9 Spondylosis, unspecified; S02.30XD Fracture of orbital floor, unspecified side, subsequent encounter for fracture with routine healing; Z51.5 Encounter for palliative care; G89.4 Chronic pain syndrome; Z66 Do not resuscitate; S01.119A Laceration without foreign body of unspecified eyelid and periocular area, initial encounter; K80.20 Calculus of gallbladder without cholecystitis without obstruction; H43.813 Vitreous degeneration, bilateral; R33.9 Retention of urine, unspecified; Y83.8 Other surgical procedures as the cause of abnormal reaction of the patient, or of later complication, without mention of misadventure at the time of the procedure; Y82.8 Other medical devices associated with adverse incidents
CPT/HCPCS: 31500; 36247; 36600; 37183; 37242; 51702; 70450; 70486; 70496; 70498; 71010; 71260; 72125; 74000; 74177; 75736; 76705; 76937; 80048; 80053; 80076; 80307; 81001; 82140; 82550; 82805; 82948; 83605; 83690; 83735; 84100; 84155; 84443; 84484; 85007; 85025; 85027; 85610; 85730; 86403; 87040; 87070; 87077; 87086; 87147; 87186; 87205; 87641; 93005; 93975; 94002; 94003; 94150; 94640; 94664; 94667; 95819; 96365; 99152; 99153; C1725; C1757; C1769; C1887; C1894; C9113; J0456; J0692; J1170; J1644; J1940; J2020; J2250; J2543; J2997; J3010; J7030; J7050; J7120; Q9963; Q9967